=== PATIENT | female | born 1940 | race Caucasian/White ===

== ENCOUNTER 2020-01-15 15:28 | Inpatient (IN) ==
--- NOTE | 2020-01-15 15:50 | Emergency Department Note ---
Impression & Plan Pulmonary emboli, Fracture, radius, head ED Provider Note NAME: TIANNA DO AGE: 79 SEX: F : 1940 ARRIVES VIA: Walk-In INFORMANT: Patient ED PROVIDER(S): Kole Chavez DO CHIEF COMPLAINT: Fall HPI: Patient is a 79-year-old female who presents the ER for a fall down 4 steps yesterday. She notes she was talking and not paying attention when she fell. She denies losing consciousness. She had no symptoms prior to the fall. Since then she has been having right rib pain. Patient is also complaining of mild knee pain on the right with walking. She also has the majority of her pain in her left elbow tracking down to her left wrist. Pain is worse with movement. She been taking Tylenol no significant improvement. Pain is a 9 out of 10. No other exacerbating or remitting factors. She did not hit her head. No loss consciousness. No blood thinners. No neck pain. ROS: See above HPI for pertinent positives & negatives. A total of 10 systems reviewed and were otherwise negative. PAST MEDICAL HISTORY:See Below PAST SURGICAL HISTORY:See Below FAMILY HISTORY:See Below SOCIAL HISTORY:See Below HOME MEDICATIONS:See Below ALLERGIES:See Below VITALS:See Below PHYSICAL EXAMINATION: GENERAL: alert, well appearing, well nourished, no distress, non-toxic HEAD: normal cephalic, small contusion above right eyebrow EYE EXAM: normal conjunctiva, PERRL and EOM's grossly intact OROPHARYNX: no exudate, no erythema, lips, buccal mucosa, and tongue normal and mucous membranes are moist NECK: supple, no nuchal rigidity, no adenopathy, non-tender CHEST: stable to compression anteriorly and posteriorly with tenderness under the right breast. LUNGS: clear to auscultation. Normal chest wall mechanics HEART: no murmurs, S1 normal and S2 normal ABDOMEN: abdomen soft, non-tender, normo-active bowel sounds, no masses, no rebound or guarding. PELVIS: stable to compression anteriorly and posteriorly BACK: Back is symmetrical on inspection and there is no deformity, no midline tenderness, no CVA tenderness. UPPER EXTREMITIES: Skin is intact. No tenderness throughout left humerus tracking down through and until the elbow. She has tenderness on palpation of left elbow and over the radial head. This tracks through to the wrist. DPs 2 out of 4. Skin is intact. Gross sensations intact. Flexion-extension at the elbow home with supination and pronation and flexion extension of the wrist is intact. LOWER EXTREMITIES: Small abrasion to right knee. Full active and passive range of motion without tenderness to palpation right and left hip knees ankles. NEURO EXAM: Normal sensorium, cranial nerves II-XII grossly intact, normal speech, no gross weakness of arms, no gross weakness of legs. GCS: 15. MEDICAL DECISION MAKING: Patient is a 79-year-old female who presents the ER following a mechanical fall yesterday. She is having rib pain, arm pain and knee pain. She also has a contusion to her right forehead. IV was established blood work was obtained. Labs show no significant leukocytosis or anemia. INR was unremarkable. BMP along with LFTs bilirubin and troponin was negative. X-rays of the knee wrist forearm and elbow show left radial head fracture. Patient was placed in a sugar tong. CT of the chest showed bilateral PEs. Patient was fairly hypertensive but she was having fair amount of pain and initially did not want pain medications. She was eventually given morphine and agreeable. Pressures came down into the 180s. She was started on heparin bolus and heparin drip secondary to the PEs after discussion. She denies any previous brain bleeds, coughing up blood, vomiting blood, urinating blood, dark tarry stools or bright red blood per rectum. Patient was updated and discussed with hospitalist for admission. Triage Nursing notes reviewed. Prior medical records reviewed Vital Signs: reviewed and remarkable for HTN Differential diagnosis: Differential diagnoses include major intracranial, cervical, spinal, thoracic, a bdominal, pelvic and neurologic injury. Fracture, contusion, sprain, strain, laceration, abrasions included as well. ER treatment provided: See below Diagnostics interpreted by me: ECG: none Cardiac Monitoring: An order was placed for continuous cardiac monitoring. The monitor shows a rate of 68 with sinus rhythm. Laboratory studies: As stated above and show below. Imaging studies: CT of the chest shows bilateral PEs. X-rays were otherwise unremarkable with exception of a radial head fracture. Consultation(s): Discussed with the hospitalist for admission. ED COURSE: Procedures: none Critical Care: I have personally spent 35 minutes of critical care time in the direct management of this patient. This includes bedside care, interpretation of diagnostic studies, and testing, discussion with consultants, patient, and family members, and other required patient management activities. This 35 minutes is in excess of all separately billable procedures. Past Med/Surg History Medical History (Updated 01/15/20 @ 21:25 by Kole Chavez DO) Hyperlipidemia Hypertension Sleep apnea Social History Preferred Language: Citizen Of [place] Feels Safe at Home: Yes Smoking Status: Never smoker Allergies Allergies Allergy/AdvReac Type Severity Reaction Status Date / Time simvastatin [From Zocor] AdvReac Muscle Pain Verified 01/15/20 17:03 Home Meds Home Medications Medication Instructions Recorded Confirmed acetaminophen [Tylenol Extra 500 mg PO Q6H PRN 01/15/20 01/15/20 Strength] atorvastatin 40 mg PO DAILY 01/15/20 01/15/20 cholecalciferol (vitamin D3) 25 mcg PO DAILY 01/15/20 01/15/20 [Vitamin D3] hydrochlorothiazide 25 mg PO DAILY 01/15/20 01/15/20 levothyroxine 75 mcg PO DAILY 01/15/20 01/15/20 omega-3 fatty acids-fish oil [Fish 1 cap PO DAILY 01/15/20 01/15/20 Oil] potassium chloride 20 meq PO BID 01/15/20 01/15/20 Results & Data (ED) Vital Signs Vital Signs - 24 hr 01/15/20 15:32 01/15/20 16:35 01/15/20 16:40 Temperature 36.7 C Temperature Source Oral Pulse Rate 70 52 L 50 L Pulse Rate [Finger] Pulse Rate from SpO2 Sensor 57 L 46 L Pulse Rhythm Regular Pulse Strength Normal Respiratory Rate 20 18 21 Respiratory Depth Normal Blood Pressure 166/97 H Blood Pressure [Right Arm] Blood Pressure Mean 120 Blood Pressure Mean [Right Arm] Blood Pressure Position Sitting Pulse Oximetry 94 95 95 Oxygen Delivery Method Room Air Room Air Room Air Sepsis Recent Fever Within 48 Hours No Sepsis New/Unexplained Change in Mental Status No Sepsis Action Taken by Nursing No Action Required 01/15/20 16:41 01/15/20 16:50 01/15/20 17:00 Temperature Temperature Source Pulse Rate 45 L 62 65 Pulse Rate [Finger] Pulse Rate from SpO2 Sensor 56 L 63 65 Pulse Rhythm Pulse Strength Respiratory Rate 19 16 18 Respiratory Depth Blood Pressure 176/90 H Blood Pressure [Right Arm] Blood Pressure Mean 113 Blood Pressure Mean [Right Arm] Blood Pressure Position Pulse Oximetry 95 98 99 Oxygen Delivery Method Room Air Room Air Room Air Sepsis Recent Fever Within 48 Hours Sepsis New/Unexplained Change in Mental Status Sepsis Action Taken by Nursing 01/15/20 17:01 01/15/20 17:10 01/15/20 17:20 Temperature Temperature Source Pulse Rate 64 49 L 48 L Pulse Rate [Finger] Pulse Rate from SpO2 Sensor 64 50 L 48 L Pulse Rhythm Pulse Strength Respiratory Rate 17 20 14 Respiratory Depth Blood Pressure 198/78 H Blood Pressure [Right Arm] Blood Pressure Mean 108 Blood Pressure Mean [Right Arm] Blood Pressure Position Pulse Oximetry 97 99 100 Oxygen Delivery Method Room Air Room Air Room Air Sepsis Recent Fever Within 48 Hours Sepsis New/Unexplained Change in Mental Status Sepsis Action Taken by Nursing 01/15/20 17:30 01/15/20 17:40 01/15/20 18:03 Temperature Temperature Source Pulse Rate 46 L 67 72 Pulse Rate [Finger] Pulse Rate from SpO2 Sensor 50 L 62 72 Pulse Rhythm Pulse Strength Respiratory Rate 18 21 21 Respiratory Depth Blood Pressure 187/107 H Blood Pressure [Right Arm] Blood Pressure Mean 125 Blood Pressure Mean [Right Arm] Blood Pressure Position Pulse Oximetry 93 99 94 Oxygen Delivery Method Room Air Room Air Room Air Sepsis Recent Fever Within 48 Hours Sepsis New/Unexplained Change in Mental Status Sepsis Action Taken by Nursing 01/15/20 18:10 01/15/20 18:20 01/15/20 18:30 Temperature Temperature Source Pulse Rate 69 70 68 Pulse Rate [Finger] Pulse Rate from SpO2 Sensor 69 71 70 Pulse Rhythm Pulse Strength Respiratory Rate 19 17 20 Respiratory Depth Blood Pressure Blood Pressure [Right Arm] Blood Pressure Mean Blood Pressure Mean [Right Arm] Blood Pressure Position Pulse Oximetry 98 99 98 Oxygen Delivery Method Room Air Room Air Room Air Sepsis Recent Fever Within 48 Hours Sepsis New/Unexplained Change in Mental Status Sepsis Action Taken by Nursing 01/15/20 18:31 01/15/20 18:40 01/15/20 18:45 Temperature Temperature Source Pulse Rate 53 L 55 L Pulse Rate [Finger] 70 Pulse Rate from SpO2 Sensor 53 L 51 L Pulse Rhythm Pulse Strength Respiratory Rate 17 15 17 Respiratory Depth Blood Pressure Blood Pressure [Right Arm] 226/104 H Blood Pressure Mean 203 Blood Pressure Mean [Right Arm] 144 Blood Pressure Position Pulse Oximetry 97 98 97 Oxygen Delivery Method Room Air Room Air Room Air Sepsis Recent Fever Within 48 Hours Sepsis New/Unexplained Change in Mental Status Sepsis Action Taken by Nursing 01/15/20 18:47 01/15/20 18:48 01/15/20 19:01 Temperature Temperature Source Pulse Rate 80 74 71 Pulse Rate [Finger] Pulse Rate from SpO2 Sensor 72 76 69 Pulse Rhythm Pulse Strength Respiratory Rate 17 18 17 Respiratory Depth Blood Pressure 243/103 H 226/104 H 231/106 H Blood Pressure [Right Arm] Blood Pressure Mean 120 120 120 Blood Pressure Mean [Right Arm] Blood Pressure Position Pulse Oximetry 98 99 99 Oxygen Delivery Method Room Air Room Air Sepsis Recent Fever Within 48 Hours Sepsis New/Unexplained Change in Mental Status Sepsis Action Taken by Nursing 01/15/20 19:28 01/15/20 19:30 01/15/20 19:31 Temperature Temperature Source Pulse Rate 69 65 57 L Pulse Rate [Finger] Pulse Rate from SpO2 Sensor 69 65 62 Pulse Rhythm Pulse Strength Respiratory Rate 20 18 14 Respiratory Depth Blood Pressure 186/81 H 179/80 H Blood Pressure [Right Arm] Blood Pressure Mean 103 129 Blood Pressure Mean [Right Arm] Blood Pressure Position Pulse Oximetry 97 97 97 Oxygen Delivery Method Room Air Room Air Sepsis Recent Fever Within 48 Hours Sepsis New/Unexplained Change in Mental Status Sepsis Action Taken by Nursing 01/15/20 20:00 01/15/20 20:31 Temperature Temperature Source Pulse Rate 70 70 Pulse Rate [Finger] Pulse Rate from SpO2 Sensor 66 71 Pulse Rhythm Pulse Strength Respiratory Rate 23 19 Respiratory Depth Blood Pressure 164/72 H 152/74 H Blood Pressure [Right Arm] Blood Pressure Mean 86 82 Blood Pressure Mean [Right Arm] Blood Pressure Position Pulse Oximetry 97 98 Oxygen Delivery Method Room Air Room Air Sepsis Recent Fever Within 48 Hours Sepsis New/Unexplained Change in Mental Status Sepsis Action Taken by Nursing Laboratory Data Result diagrams: 01/15/20 16:33 01/15/20 16:33 Lab Results 01/15/20 01/15/20 01/15/20 Range/Units 16:33 16:33 16:33 WBC 10.89 H (4.8-10.8) K/uL RBC 4.33 (4.2-5.4) M/uL Hgb 13.8 (12.0-16.0) g/dL Hct 40.3 (37-47) % MCV 93.1 (80-100) fL MCH 31.9 (25-34) pg MCHC 34.2 (32-36) g/dL RDW Std Deviation 48.6 H (36.4-46.3) fL RDW Coeff of Anyi 14.2 (11.5-14.5) % Plt Count 216 (130-400) K/uL MPV 11.0 H (7.4-10.4) fL Immature Gran % (Auto) 0.2 % Neut % (Auto) 62.0 % Lymph % (Auto) 22.0 % [place] % (Auto) 10.3 % Eos % (Auto) 5.1 % Baso % (Auto) 0.4 % Immature Gran # (Auto) 0.02 (0.00-0.02) K/uL Neut # (Auto) 6.76 H (1.4-6.5) K/uL Lymph # (Auto) 2.40 (1.2-3.4) K/uL [place] # (Auto) 1.12 H (0.11-0.59) K/uL Eos # (Auto) 0.55 H (0-0.5) K/uL Baso # (Auto) 0.04 (0-0.2) K/uL PT 11.0 (9.0-12.0) Seconds INR 1.0 (0.9-1.1) APTT (21.0-31.0) Seconds PTT Ratio Sodium 136 (136-145) mmol/L Potassium 3.5 (3.5-5.1) mmol/L Chloride 103 (98-107) mmol/L Carbon Dioxide 27 (21-32) mmol/L Anion Gap 7.0 (3-11) BUN 24 H (7-18) mg/dl Creatinine 1.14 (0.6-1.2) mg/dl Est Cr Clr Drug Dosing 44.2 ml/min Est GFR ( Amer) 53.3 Est GFR (Non-Af Amer) 46.0 BUN/Creatinine Ratio 21.2 H (10-20) Glucose 93 (70-99) mg/dl Calcium 9.0 (8.5-10.1) mg/dl Total Bilirubin 1.0 (0.2-1) mg/dl Direct Bilirubin (0-0.2) mg/dl AST 28 (15-37) U/L ALT 45 (12-78) U/L Alkaline Phosphatase 77 (45-117) U/L Troponin I < 0.015 (0-0.045) ng/ml Total Protein 7.6 (6.4-8.2) gm/dl Albumin 3.7 (3.4-5.0) gm/dl Globulin 3.9 (2.5-4.0) gm/dl Albumin/Globulin Ratio 0.9 (0.9-2) 01/15/20 01/15/20 Range/Units 19:18 19:32 WBC (4.8-10.8) K/uL RBC (4.2-5.4) M/uL Hgb (12.0-16.0) g/dL Hct (37-47) % MCV (80-100) fL MCH (25-34) pg MCHC (32-36) g/dL RDW Std Deviation (36.4-46.3) fL RDW Coeff of Anyi (11.5-14.5) % Plt Count (130-400) K/uL MPV (7.4-10.4) fL Immature Gran % (Auto) % Neut % (Auto) % Lymph % (Auto) % [place] % (Auto) % Eos % (Auto) % Baso % (Auto) % Immature Gran # (Auto) (0.00-0.02) K/uL Neut # (Auto) (1.4-6.5) K/uL Lymph # (Auto) (1.2-3.4) K/uL [place] # (Auto) (0.11-0.59) K/uL Eos # (Auto) (0-0.5) K/uL Baso # (Auto) (0-0.2) K/uL PT 11.0 (9.0-12.0) Seconds INR 1.0 (0.9-1.1) APTT 23.0 (21.0-31.0) Seconds PTT Ratio 0.8 Sodium (136-145) mmol/L Potassium (3.5-5.1) mmol/L Chloride (98-107) mmol/L Carbon Dioxide (21-32) mmol/L Anion Gap (3-11) BUN (7-18) mg/dl Creatinine (0.6-1.2) mg/dl Est Cr Clr Drug Dosing ml/min Est GFR ( Amer) Est GFR (Non-Af Amer) BUN/Creatinine Ratio (10-20) Glucose (70-99) mg/dl Calcium (8.5-10.1) mg/dl Total Bilirubin 1.0 (0.2-1) mg/dl Direct Bilirubin 0.2 (0-0.2) mg/dl AST 25 (15-37) U/L ALT 42 (12-78) U/L Alkaline Phosphatase 77 (45-117) U/L Troponin I < 0.015 (0-0.045) ng/ml Total Protein 7.2 (6.4-8.2) gm/dl Albumin 3.6 (3.4-5.0) gm/dl Globulin (2.5-4.0) gm/dl Albumin/Globulin Ratio (0.9-2) Administered Medications Heparin Sodium/Dextrose (Heparin Sodium/Dextrose) 25,000 units in 500 mls @ 0.02 mls/hr IV .Q24H JAILYN; Protocol Stop: 02/14/20 18:44 Last Titration: 01/15/20 20:44 Dose: 800 units/hr, 16 mls/hr Documented by: [id number] Cosigned by: [id number] Titration: 01/15/20 19:54 Dose: 0 units/hr, 0 mls/hr Documented by: [id number] Cosigned by: [id number] Admin: 01/15/20 19:24 Dose: 800 units/hr, 16 mls/hr Documented by: [id number] Cosigned by: [id number] Ioversol (Optiray 320 100ml) 92 ml IV ONCE PRN PRN Reason: Interaction Checking Stop: 01/19/20 17:53 Last Admin: 01/15/20 17:54 Dose: 92 ml Documented by: [id number] Discontinued Medications Amlodipine Besylate (Norvasc) 5 mg PO NOW ONE Stop: 01/15/20 19:36 Last Admin: 01/15/20 20:44 Dose: Not Given Documented by: [id number] Heparin Sodium (Porcine) (Heparin Iv Bolus) Confirm Administered Dose 10,000 units .ROUTE .STK-MED ONE Stop: 01/15/20 19:07 Last Admin: 01/15/20 19:23 Dose: 4,000 units Documented by: [id number] Cosigned by: [id number] Heparin Sodium/Dextrose () 1 ea IV NOW STA; Protocol Stop: 01/15/20 18:46 Last Admin: 01/15/20 19:28 Dose: Not Given Documented by: [id number] Hydralazine HCl (Hydralazine Hcl) 5 mg IV NOW ONE Stop: 01/15/20 19:26 Last Admin: 01/15/20 20:07 Dose: Not Given Documented by: [id number] Hydralazine HCl (Hydralazine Hcl) Confirm Administered Dose 20 mg .ROUTE .STK- MED ONE Stop: 01/15/20 19:52 Last Increment: 01/15/20 19:54 Dose: 5 mg Documented by: [id number] Morphine Sulfate (Morphine Sulfate) 4 mg IV NOW STA Stop: 01/15/20 18:51 Last Admin: 01/15/20 19:09 Dose: 4 mg Documented by: [id number] Discharge Plan Visit Data *Final* Discharge Date/Time: 01/15/20 21:04 Chief Complaint: Fall Stated Complaint: fall, right rib pain, bilater knee pain ED Provider: Kole Chavez Discharge Problem: Pulmonary emboli, Fracture, radius, head Patient Disposition: Admitted As Inpatient Discharge Instructions Interventions: ED Discharge Assessment Last Done: 01/15/20 21:04 Discharge Problem: Pulmonary emboli Qualifiers: Pulmonary embolism type: unspecified Chronicity: acute Acute cor pulmonale presence: unspecified Qualified Code(s): I26.99 - Other pulmonary embolism without acute cor pulmonale Fracture, radius, head Qualifiers: Encounter type: initial encounter Fracture type: closed Fracture alignment: nondisplaced Laterality: left Qualified Code(s): S52.125A - Nondisplaced fracture of head of left radius, initial encounter for closed fracture
--- NOTE | 2020-01-15 16:36 | XRay Report ---
RIGHT KNEE 3 VIEWS CLINICAL HISTORY: Fall with right knee injury. FINDINGS: AP, crosstable lateral, and sunrise views of the right knee are obtained. No prior studies are available for comparison at the time of dictation. The Skeletal structures are osteopenic. No fra cture is seen. There is mild tricompartmental degenerative joint space narrowing. There are small lat eral marginal osteophytes, patellar enthesophytes, and degenerative beaking of the tibial spine. Ther e is faint chondrocalcinosis in the medial and lateral compartments. A calcified fabella is incidenta lly noted. There is a small joint effusion. Mild prepatellar soft tissue swelling is noted. IMPRESSION: 1. Mild soft tissue swelling and joint effusion with no acute bony abnormality identified. 2. Mild degenerative change and chondrocalcinosis as above. Electronically signed by: Miguel Story M.D. 01/15/2020 4:35 PM
--- NOTE | 2020-01-15 16:37 | XRay Report ---
LEFT ELBOW 3 VIEWS CLINICAL HISTORY: Fall with left elbow injury. FINDINGS: 3 views of the left elbow are obtained. No prior studies are available for comparison at th e time of dictation. The skeletal structures are osteopenic. There is a nondisplaced radial head frac ture which extends to the articular surface. There is associated joint effusion. No additional fractu re is identified. Mild overlying soft tissue edema is noted. IMPRESSION: Nondisplaced radial head fracture as above with associated joint effusion. Electronically signed by: Miguel Story M.D. 01/15/2020 4:36 PM
--- NOTE | 2020-01-15 16:39 | XRay Report ---
LEFT FOREARM 2 VIEWS CLINICAL HISTORY: Fall with left arm injury. FINDINGS: AP and lateral views of the left forearm are obtained. No prior studies are available for c omparison at the time of dictation. The skeletal structures are osteopenic. There is a radial head fr acture. Question a small displaced fragment within the joint space. No additional fracture is identif ied. The distal radius and the ulna are intact. There is an associated elbow joint effusion. Soft tis nora edema is present around the elbow. IMPRESSION: 1. Radial head fracture as above. 2. Question a small displaced fragment within the joint space. Electronically signed by: Miguel Story M.D. 01/15/2020 4:38 PM
[2020-01-15 16:41] LABS: Basophils # (auto) 0.04 K/uL (0-0.2); Basophils % (auto) 0.4 %; Eosinophils # (auto) 0.55 K/uL (0-0.5); Eosinophils % (auto) 5.1 %; Hematocrit (blood only) 40.3 % (37-47); Hemoglobin 13.8 g/dL (12.0-16.0); Immature Granulocytes # (auto) 0.02 K/uL (0.00-0.02); Immature Granulocytes % (auto) 0.2 %; Mean Corpuscular Hemoglobin 31.9 pg (25-34); Mean Corpuscular Hgb Conc 34.2 g/dL (32-36); Mean Corpuscular Volume 93.1 fL (80-100); Monocytes # (auto) 1.12 K/uL (0.11-0.59); Monocytes % (auto) 10.3 %; Neutrophils # (auto) 6.76 K/uL (1.4-6.5); Platelet Count 216 K/uL (130-400); RDW Coefficient of Variation 14.2 % (11.5-14.5); RDW Standard Deviation 48.6 fL (36.4-46.3); Red Blood Count 4.33 M/uL (4.2-5.4); White Blood Count 10.89 K/uL (4.8-10.8)
--- NOTE | 2020-01-15 16:45 | XRay Report ---
LEFT WRIST 4 VIEWS CLINICAL HISTORY: Left wrist injury. Fall. FINDINGS: 4 views of the left wrist are obtained. No prior studies are available for comparison at th e time of dictation. The skeletal structures are osteopenic. There is no radiographic evidence of lef t wrist fracture. Mild degenerative narrowing is seen at the radiocarpal articulation. Mild to modera te osteoarthritic change is noted at the first carpometacarpal joint. The overlying soft tissues are normal as imaged. IMPRESSION: No fracture is identified. Electronically signed by: Miguel Story M.D. 01/15/2020 4:43 PM
[2020-01-15 16:57] LABS: Alanine Aminotransferase 45 U/L (12-78); Albumin Level 3.7 gm/dl (3.4-5.0); Aspartate Aminotransferase 28 U/L (15-37); BUN Creatinine Ratio 21.2 (10-20); Blood Urea Nitrogen 24 mg/dl (7-18); Carbon Dioxide 27 mmol/L (21-32); Chloride 103 mmol/L (98-107); Creatinine Clr Calc Pharmacy 44.2 ml/min; Est GFR (African American) 53.3; Glucose 93 mg/dl (70-99); Potassium 3.5 mmol/L (3.5-5.1); Sodium 136 mmol/L (136-145)
[2020-01-15 17:02] LABS: Albumin Globulin Ratio 0.9 (0.9-2); Alkaline Phosphatase 77 U/L (45-117); Globulin 3.9 gm/dl (2.5-4.0); Total Protein 7.6 gm/dl (6.4-8.2); Troponin I < 0.015 ng/ml (0-0.045)
[2020-01-15] MEDS ORDERED: IOVERSOL 100ml IV PRN (17:54)
--- NOTE | 2020-01-15 18:31 | CT Scan Report ---
CT SCAN OF THE BRAIN WITHOUT IV CONTRAST CLINICAL HISTORY: Fall. Head injury. COMPARISON STUDY: CT of the brain dated 06/30/2019. TECHNIQUE: Unenhanced axial CT scan of the brain is performed from the vertex to the skull base. A do se lowering technique was utilized adhering to the principles of ALARA. FINDINGS: Brain parenchyma: There are age-related involutional changes noting moderate confluent subcortical a nd periventricular microangiopathic change. There is no hemorrhage, mass effect, or evidence of acute territorial ischemia by CT criteria. Mccoy-white matter differentiation is preserved. No extra-axial fluid collection is seen. Ventricles, sulci, cisterns: Prominent secondary to involutional change. Intracranial vasculature: There is atherosclerotic calcification of the cavernous carotid and vertebr al arteries. Calvarium: The skeletal structures are osteopenic. There is no depressed calvarial fracture. Sinuses and mastoids: Trace mucosal thickening is seen in the left frontal sinus. The remaining visua lized paranasal sinuses are clear. The mastoid air cells are well pneumatized. Orbits: The bony orbits are grossly intact. There are bilateral ocular lens implants. IMPRESSION: There is no hemorrhage, mass effect, or evidence of acute territorial ischemia by CT dax hamilton. ACT 112: Negative or not required by law. Electronically signed by: Miguel Story M.D. 01/15/2020 6:30 PM
--- NOTE | 2020-01-15 18:41 | CT Scan Report ---
CT SCAN OF THE CHEST WITH IV CONTRAST CLINICAL HISTORY: Trauma. Fall. COMPARISON STUDY: Chest CT dated 07/02/2019. TECHNIQUE: Following the IV administration of 92 cc of Optiray 320, CT scan of the thorax was perform ed from the thoracic inlet to the upper abdomen. Images are reviewed in the axial, sagittal, and jay nal planes. IV contrast was administered without complication. A dose lowering technique was utilize d adhering to the principles of ALARA. The examination is degraded by streak artifact from the left a rm which could not be elevated above the chest. CT DOSE: 1873.85 mGy.cm FINDINGS: Thyroid: Imaged portions of the thyroid gland are normal in size and attenuation. Thoracic aorta: There is atherosclerotic calcification of the thoracic aorta, which is normal in javier nia and demonstrates bovine variant arch anatomy. No dissection is seen. Pulmonary vasculature: The pulmonary trunk is normal in caliber. There are pulmonary emboli within se gmental branches of the right upper there are segmental and subsegmental pulmonary emboli within bran ches of the right middle, right lower, and lingular pulmonary arteries. Heart: The heart is mildly enlarged and without pericardial effusion. There is calcification of the c oronary arteries and aortic valve leaflets. Lungs and pleural spaces: There is no lobar consolidation, pleural effusion, or pneumothorax. Scarrin g/atelectasis is noted at the lung bases. There are scattered calcified granulomas. The trachea and c entral airways are clear. Numerous tiny groundglass nodules are again seen scattered throughout both lungs. Mediastinum: There is no mediastinal hematoma or lymphadenopathy. Shwetha: Clear. Axillae: There is no axillary lymphadenopathy. Upper abdomen: There is a moderate hiatal hernia. A 1.6 cm cyst is again noted in the left lobe of th e liver. Skeletal structures: The skeletal structures are osteopenic. The bony thorax appears intact. Mild deg enerative changes noted in the shoulders and thoracic spine. No lytic or blastic bony lesions are see n. IMPRESSION: 1. Segmental and subsegmental pulmonary emboli are present bilaterally as detailed above. 2. There is no acute posttraumatic intrathoracic abnormality. 3. There is no lobar consolidation, pleural effusion, or pneumothorax. 4. Moderate hiatal hernia. 5. Numerous tiny groundglass nodules are again seen scattered throughout both lungs. This has not sig nificantly changed from 07/02/2019. Consider nonemergent pulmonology follow-up. 6. Cardiomegaly. 7. Additional findings as above. Electronically signed by: Miguel Story M.D. 01/15/2020 6:40 PM
[2020-01-15] MEDS ORDERED: Heparin IV Low Dose WITH Bolus IV STA (18:45)
[2020-01-15] MEDS ORDERED: HEPARIN SODIUM/DEXTROSE 25,000 UNITS/500 ML BAG IV SCH (18:45)
[2020-01-15] MEDS ORDERED: MoRPHine SULFATE 4 MG/ML 1 ML CARP\\VIAL IV STA (18:50)
[2020-01-15] MEDS ORDERED: HEPARIN SOD (PORCINE) 1000 UNIT/ML 10 ML VIAL ONE (19:06)
[2020-01-15] MEDS ORDERED: HydrALAZINE HCL 20 MG/ML VIAL IV ONE (19:25)
[2020-01-15] MEDS ORDERED: AMLODIPINE BESYLATE 5 MG TAB PO ONE (19:35)
[2020-01-15 19:38] LABS: Partial Thromboplastin Ratio 0.8
[2020-01-15] MEDS ORDERED: HydrALAZINE HCL 20 MG/ML VIAL ONE (19:51)
[2020-01-15 20:03] LABS: Alanine Aminotransferase 42 U/L (12-78); Albumin Level 3.6 gm/dl (3.4-5.0); Alkaline Phosphatase 77 U/L (45-117); Aspartate Aminotransferase 25 U/L (15-37); Bilirubin Direct 0.2 mg/dl (0-0.2); Total Protein 7.2 gm/dl (6.4-8.2); Troponin I < 0.015 ng/ml (0-0.045)
--- NOTE | 2020-01-15 20:25 | History & Physical Report ---
Date of Service January 15, 2020 Assessment & Plan (1) Pulmonary embolism, bilateral: 71-year-old female with history of hypertension, CKD stage III, solid sleep apnea on CPAP, presenting with progressive right rib pain and left elbow pain after a fall yesterday. Acute bilateral pulmonary embolism Risk factors: Poor mobility secondary to generalized fatigue for the past few weeks, reports that her aunt and her son has history of blood clots CT angiogram of the chest: 1. Segmental and subsegmental pulmonary emboli are present bilaterally as detailed above. 2. There is no acute posttraumatic intrathoracic abnormality. 3. There is no lobar consolidation, pleural effusion, or pneumothorax. 4. Moderate hiatal hernia. 5. Numerous tiny groundglass nodules are again seen scattered throughout both lungs. This has not significantly changed from 07/02/2019. Consider nonemergent pulmonology follow-up. 6. Cardiomegaly. 7. Additional findings as above. Saturating well on room air, blood pressure elevated Check echocardiogram Heparin standard dose with bolus ordered, continued after patient's blood pressure improved In light of elevated BMI, may not be a good candidate for the novel anticoagulants, discussed with pharmacist or proposal development manager Will need hematology referral as an outpatient and hypercoagulable work-up Left radial head nondisplaced fracture, status post fall Appears to be mechanical fall, no prodrome Left Elbow Xray: IMPRESSION: Nondisplaced radial head fracture as above with associated joint effusion. Arm sling ordered, scheduled Tylenol, PRN morphine, tramadol orthopedic service consulted May need court recording monitor placement as outpatient Hypertension Mildly elevated while at the emergency room likely secondary to severe pain Approach with morphine, PRN hydralazine Hold usual HCTZ as patient received IV contrast today Monitor, may need amlodipine tomorrow Right knee pain X-ray: 1. Mild soft tissue swelling and joint effusion with no acute bony abnormality identified. 2. Mild degenerative change and chondrocalcinosis as above. --Ice packs ordered CKD stage III Stable Hypothyroidism Continue usual levothyroxine Obstructive sleep apnea CPAP ordered Activity Bedrest for tonight Advance accordingly DVT prophylaxis Already on heparin drip Disposition PT and OT evaluation Usually lives at home with family Plan of care discussed with patient in detail and at length All questions were answered Patient understanding, agreeable, comfortable plan of care History of Present Illness 79-year-old female with history of hypertension, CKD stage 3, and other problems noted below presenting with Right-sided rib pain and left elbow pain after a fall yesterday. Patient states that for the past few weeks she has been feeling fatigued and was mostly in her recliner throughout the day. Yesterday while walking down the steps, descending from her porch, the patient felt weak on her lower legs and subsequently fell landing on her chest, on brick ground. She did not have any dizziness, lightheadedness, palpitations prior to the fall. Also did not lose consciousness. She managed to get up but subsequently developed progressive left elbow pain and right rib pain. Progression of left elbow pain because of to the ER. At the ER, the patient was receiving high blood pressure up to systolic 200s, but was saturating well on room air. CT angiogram of the chest confirmed acute bilateral pulmonary emboli. Left elbow x-ray also showed nondisplaced radial head fracture, with joint effusion. She was started with a heparin drip with bolus, and given morphine ER. She was also given additional hydralazine, which improved her blood pressure to the systolic 150s. On exam, the patient was seen in her room at the PCU. She was sitting up, oriented x3, alert, awake, answers all questions appropriately, in good spirits. She states that her pain is much better, now 5 out of 10. Has some minimal right rib pain, but denies having any shortness of breath, cough, sputum production, fevers or chills. No leg pain, does report minimal discomfort on her right knee. She reports no problems with ambulation. Primary Care Provider: Мария Littlejohn, Allergies Allergy/AdvReac Type Severity Reaction Status Date / Time simvastatin [From Zocor] AdvReac Muscle Pain Verified 01/15/20 17:03 Home Medications Home Medications Medication Instructions Recorded Confirmed Type acetaminophen [Tylenol Extra 500 mg PO Q6H PRN 01/15/20 01/15/20 History Strength] atorvastatin 40 mg PO DAILY 01/15/20 01/15/20 History cholecalciferol (vitamin D3) 25 mcg PO DAILY 01/15/20 01/15/20 History [Vitamin D3] hydrochlorothiazide 25 mg PO DAILY 01/15/20 01/15/20 History levothyroxine 75 mcg PO DAILY 01/15/20 01/15/20 History omega-3 fatty acids-fish oil [Fish 1 cap PO DAILY 01/15/20 01/15/20 History Oil] potassium chloride 20 meq PO BID 01/15/20 01/15/20 History Past Med/Surg History Medical History (Updated 01/15/20 @ 21:25 by Kole Chavez, DO) Hyperlipidemia Hypertension Sleep apnea Social History Preferred Language: Bulgarian Communication Ability: Effective Senior Licensing Manager Required: No Beliefs That Will Affect Care: None Current Living Situation: Spouse Other Information That Helps Us Care for You: No Feels Safe at Home: Yes Safety Concerns: Feels Safe At This Time Smoking Status: Never smoker Do You Dip or Chew Tobacco: No ; Second Hand Exposure: No ; Hx Alcohol Use: No Hx Substance Use: No Review of Systems Review of Systems: All systems reviewed & are unremarkable except as noted in HPI & below Physical Exam Physical Exam: General- oriented x 3, not in distress, speaks in sentences with no effort or accessory muscle use Head- atraumatic Eyes- PERRL, EOMI, anicteric ENT- oropharynx clear Neck- supple, no JVD, no adenopathy, no thyromegaly; carotids +2/2, no bruits appreciated Lungs- clear to auscultation bilaterally, no rales/wheezes Heart- normal rate, regular rhythm; no murmur, no gallop, no rub appreciated No hematoma, erythema on the right chest wall, positive mild tenderness on deep palpation of the region under the right breast Abdomen- normal bowel sounds, nondistended, soft, nontender, no masses or hepatosplenomegaly Extremities-left arm in a sling, able to move fingers fully, splint also in place Right knee: Positive small area of abrasion, no erythema/warmth/tenderness no pretibial edema, no calf tenderness; peripheral pulses intact Neuro- alert, oriented x 3; CN 2-12 grossly intact; motor 5/5 bilaterally;sensation 100% on all extremities; no other gross focal neurologic deficits Skin- warm & dry Results & Data Results & Data ([facility]) Vital Signs (Past 12 Hours) Vital Signs Temp Pulse Pulse Resp BP BP Pulse Ox 01/15/20 20:00 70 23 164/72 H 97 01/15/20 19:31 57 L 14 97 06/06/20 19:30 65 18 179/80 H 97 01/15/20 19:28 69 20 186/81 H 97 01/15/20 19:01 71 17 231/106 H 99 01/15/20 18:48 74 18 226/104 H 99 01/15/20 18:47 80 17 243/103 H 98 01/15/20 18:45 70 17 226/104 H 97 01/15/20 18:40 55 L 15 98 01/15/20 18:31 53 L 17 97 01/15/20 18:30 68 20 98 01/15/20 18:20 70 17 99 01/15/20 18:10 69 19 98 01/15/20 18:03 72 21 94 01/15/20 17:40 67 21 99 01/15/20 17:30 46 L 18 187/107 H 93 01/15/20 17:20 48 L 14 100 01/15/20 17:10 49 L 20 99 01/15/20 17:01 64 17 198/78 H 97 01/15/20 17:00 65 18 99 01/15/20 16:50 62 16 98 01/15/20 16:41 45 L 19 176/90 H 95 01/15/20 16:40 50 L 21 95 01/15/20 16:35 52 L 18 95 01/15/20 15:32 36.7 C 70 20 166/97 H 94 Laboratory Results Laboratory Results - last 24 hr 01/15/20 01/15/20 01/15/20 16:33 16:33 16:33 WBC 10.89 H RBC 4.33 Hgb 13.8 Hct 40.3 MCV 93.1 MCH 31.9 MCHC 34.2 RDW Std Deviation 48.6 H RDW Coeff of Anyi 14.2 Plt Count 216 MPV 11.0 H Immature Gran % (Auto) 0.2 Neut % (Auto) 62.0 Lymph % (Auto) 22.0 [place] % (Auto) 10.3 Eos % (Auto) 5.1 Baso % (Auto) 0.4 Immature Gran # (Auto) 0.02 Neut # (Auto) 6.76 H Lymph # (Auto) 2.40 [place] # (Auto) 1.12 H Eos # (Auto) 0.55 H Baso # (Auto) 0.04 PT 11.0 INR 1.0 APTT PTT Ratio Sodium 136 Potassium 3.5 Chloride 103 Carbon Dioxide 27 Anion Gap 7.0 BUN 24 H Creatinine 1.14 Est Cr Clr Drug Dosing 44.2 Est GFR ( Amer) 53.3 Est GFR (Non-Af Amer) 46.0 BUN/Creatinine Ratio 21.2 H Glucose 93 Calcium 9.0 Total Bilirubin 1.0 Direct Bilirubin AST 28 ALT 45 Alkaline Phosphatase 77 Troponin I < 0.015 Total Protein 7.6 Albumin 3.7 Globulin 3.9 Albumin/Globulin Ratio 0.9 01/15/20 01/15/20 19:18 19:32 WBC RBC Hgb Hct MCV MCH MCHC RDW Std Deviation RDW Coeff of Anyi Plt Count MPV Immature Gran % (Auto) Neut % (Auto) Lymph % (Auto) [place] % (Auto) Eos % (Auto) Baso % (Auto) Immature Gran # (Auto) Neut # (Auto) Lymph # (Auto) [place] # (Auto) Eos # (Auto) Baso # (Auto) PT 11.0 INR 1.0 APTT 23.0 PTT Ratio 0.8 Sodium Potassium Chloride Carbon Dioxide Anion Gap BUN Creatinine Est Cr Clr Drug Dosing Est GFR ( Amer) Est GFR (Non-Af Amer) BUN/Creatinine Ratio Glucose Calcium Total Bilirubin 1.0 Direct Bilirubin 0.2 AST 25 ALT 42 Alkaline Phosphatase 77 Troponin I < 0.015 Total Protein 7.2 Albumin 3.6 Globulin Albumin/Globulin Ratio Code Status & VTE Plan Code Status Full code
[2020-01-15] MEDS ORDERED: MoRPHine SULFATE 4 MG/ML 1 ML CARP\\VIAL IV PRN (21:39)
[2020-01-15] MEDS ORDERED: Heparin IV Standard *NO* Bolus IV ONE (21:39)
[2020-01-15] MEDS: ACETAMINOPHEN 325 MG TAB PO SCH (23:37)
[2020-01-15] MEDS: POTASSIUM CHLORIDE 20 MEQ TABCR PO SCH (23:37)
[2020-01-15] MEDS: HEPARIN SODIUM/DEXTROSE 25,000 UNITS/500 ML BAG IV SCH (23:39)
[2020-01-16 02:54] LABS: Basophils # (auto) 0.05 K/uL (0-0.2); Basophils % (auto) 0.5 %; Eosinophils # (auto) 0.56 K/uL (0-0.5); Eosinophils % (auto) 5.4 %; Hematocrit (blood only) 38.6 % (37-47); Hemoglobin 12.9 g/dL (12.0-16.0); Immature Granulocytes # (auto) 0.01 K/uL (0.00-0.02); Immature Granulocytes % (auto) 0.1 %; Lymphocytes # (auto) 2.32 K/uL (1.2-3.4); Lymphocytes % (auto) 22.3 %; Mean Corpuscular Hemoglobin 31.2 pg (25-34); Mean Corpuscular Hgb Conc 33.4 g/dL (32-36); Mean Corpuscular Volume 93.2 fL (80-100); Mean Platelet Volume 10.9 fL (7.4-10.4); Monocytes # (auto) 1.17 K/uL (0.11-0.59); Monocytes % (auto) 11.2 %; Neutrophils % (auto) 60.5 %; Platelet Count 198 K/uL (130-400); RDW Coefficient of Variation 14.4 % (11.5-14.5); Red Blood Count 4.14 M/uL (4.2-5.4); White Blood Count 10.41 K/uL (4.8-10.8)
[2020-01-16 03:13] LABS: BUN Creatinine Ratio 26.1 (10-20); Calcium 8.4 mg/dl (8.5-10.1); Creatinine Clr Calc Pharmacy 57.5 ml/min; Est GFR (African American) 68.2; Est GFR (Non-African American) 58.9; Potassium 3.6 mmol/L (3.5-5.1)
[2020-01-16 03:21] LABS: Partial Thromboplastin Ratio 2.6
[2020-01-16 03:23] LABS: Partial Thromboplastin Time 73.9 Seconds (21.0-31.0)
[2020-01-16] MEDS: HEPARIN SODIUM/DEXTROSE 25,000 UNITS/500 ML BAG IV SCH ×2 (03:48→09:00)
[2020-01-16] MEDS: LEVOTHYROXINE SODIUM 75 MCG TABLET PO SCH (05:53)
[2020-01-16] MEDS: ACETAMINOPHEN 325 MG TAB PO SCH ×4 (05:53→21:08)
[2020-01-16 06:23] LABS: Appearance Urine Cloudy (Clear); Bacteria Urine Automated 4+ (Negative); Bilirubin Urine Negative (Negative); Blood Urine Negative (Negative); Color Urine Yellow; Epithelial Cell Urine Auto 20-30 /lpf (0-5); Glucose Urine UA Negative (Negative); Ketones Urine Negative (Negative); Leukocyte Esterase Urine 2+ (Negative); Nitrite Urine Positive (Negative); Protein Urine Negative (Negative); RBC Urine Automated 0-4 /hpf (0-4); Specific Gravity Urine > 1.045 (1.000-1.030); Urobilinogen Urine Negative (Negative); WBC Urine Automated >30 /hpf (0-5); pH Urine 5.5 (4.5-7.5)
[2020-01-16] MEDS ORDERED: POTASSIUM CHLORIDE 20 MEQ TABCR PO STA (07:15)
[2020-01-16] MEDS: POTASSIUM CHLORIDE 20 MEQ TABCR PO SCH ×2 (07:58→21:08)
[2020-01-16] MEDS: cefTRIAXone SODIUM 2,000 MG in DEXTROSE 5% 50 ML IV SCH (07:58)
[2020-01-16] MEDS: ATORVASTATIN 40 MG TAB PO SCH (07:59)
[2020-01-16] MEDS ORDERED: PNEUMOCOCCAL Polysaccharide Vaccine 25mcg/0.5mL vial/Syr IM ONE (08:00)
[2020-01-16 10:06] LABS: Partial Thromboplastin Ratio 2.4
[2020-01-16 10:12] LABS: Partial Thromboplastin Time 67.9 Seconds (21.0-31.0)
--- NOTE | 2020-01-16 10:21 | Consultation Report ---
DATE OF CONSULTATION: 01/16/2020 CHIEF COMPLAINT: Left elbow pain. SUBJECTIVE: The patient is a 79-year-old female, who suffered a fall at home yesterday injuring her left elbow. She denies any other injuries as a result of fall. She was seen at [facility] ED and found to have bilateral pulmonary emboli. She was admitted to the hospital and an Orthopedics consult was asked for her left elbow. PHYSICAL EXAMINATION: Currently, she is resting in bed, alert and oriented, very pleasant elderly lady. Her left upper extremity is in a sugar tong splint and she is in a sling. Her fingers are mobile and neurovascularly intact. She denies any pain about the shoulder. She is left hand dominant. X-RAYS: X-rays of the elbow reviewed. She has a nondisplaced intra-articular radial head fracture. X-rays of the forearm and wrist were also reviewed and showed no acute fracture or abnormality. ASSESSMENT: A 79-year-old female admitted with bilateral pulmonary emboli with nondisplaced left radial head fracture. PLAN: Above discussed with the patient. I told her we can keep the splint in place temporarily for pain control; however, we want to encourage early range of motion to minimize stiffness. I will discuss this with Dr. Rodriguez and will have her follow up with Dr. Rodriguez as an outpatient.
[2020-01-16 17:12] LABS: Partial Thromboplastin Ratio 2.5
[2020-01-16] MEDS ORDERED: HydrALAZINE HCL 20 MG/ML VIAL IV ONE (18:34)
[2020-01-16] MEDS ORDERED: WARFARIN SOD 5 MG TAB PO STA (18:35)
--- NOTE | 2020-01-16 19:22 | Hospitalist Progress Note ---
Date of Service January 16, 2020 Assessment & Plan (1) Pulmonary embolism, bilateral: 71-year-old female with history of hypertension, CKD stage III, solid sleep apnea on CPAP, presenting with progressive right rib pain and left elbow pain after a fall yesterday. Acute bilateral pulmonary embolism Risk factors: Poor mobility secondary to generalized fatigue for the past few weeks, reports that her aunt and her son has history of blood clots CT angiogram of the chest: 1. Segmental and subsegmental pulmonary emboli are present bilaterally as detailed above. 2. There is no acute posttraumatic intrathoracic abnormality. 3. There is no lobar consolidation, pleural effusion, or pneumothorax. 4. Moderate hiatal hernia. 5. Numerous tiny groundglass nodules are again seen scattered throughout both lungs. This has not significantly changed from 07/02/2019. Consider nonemergent pulmonology follow-up. 6. Cardiomegaly. 7. Additional findings as above. Saturating well on room air, blood pressure elevated Echocardiogram ordered - sinus bradycardia during procedure, LV normal size, mild concentric LVH, LV wall motion is normal, EF 65 to 70%, grade 1 diastolic dysfunction. Right ventricle normal in size and function. Doppler findings do not suggest pulmonary hypertension. Heparin standard dose with bolus ordered, continued after patient's blood pressure improved In light of elevated BMI, may not be a good candidate for the novel ant icoagulants, discussed with pharmacist or hand finisher -Discussed warfarin with patient, she is familiar with the medication, as her son was also taking it in the past. -We will start warfarin tonight -Monitor INR Will need hematology referral as an outpatient and hypercoagulable work-up Telemetry reviewed, patient has episodes of sinus bradycardia, and sinus arrhythmia May need quality assurance monitor chassis placement as outpatient Left radial head nondisplaced fracture, status post fall Appears to be mechanical fall, no prodrome Left Elbow Xray: IMPRESSION: Nondisplaced radial head fracture as above with associated joint effusion. Arm sling ordered, scheduled Tylenol, PRN morphine, tramadol Orthopedic service consulted -recommend to keep splint in place temporarily ( x1 week) for pain control. If pt still in hospital 01/20 please notify ortho so splint can be d/c'd, otherwise, f/u with Dr Rodriguez early next week, [phone] for appt. Hypertension Mildly elevated while at the emergency room likely secondary to severe pain Approach with morphine, PRN hydralazine Hold usual HCTZ as patient received IV contrast Monitor, may need amlodipine tomorrow -Patient continues to be hypertensive, received amlodipine and hydralazine -Continue to closely monitor and restart HCTZ when renal function stable Right knee pain X-ray: 1. Mild soft tissue swelling and joint effusion with no acute bony abnormality identified. 2. Mild degenerative change and chondrocalcinosis as above. --Ice packs ordered -No complaints regarding her right knee today UTI -UA positive for bacteria, nitrite -Start ceftriaxone CKD stage III Stable Hypothyroidism Continue usual levothyroxine Obstructive sleep apnea CPAP ordered Activity PT OT ordered DVT prophylaxis Already on heparin drip Disposition PT and OT evaluation Usually lives at home with family Admission and Anticipated Discharge Date Admission Date: January 15, 2020 Subjective Patient is lying in bed, in no acute distress. She has some complaints of her left elbow pain. Currently her left arm is in a sling. Orthopedics consulted. Recommend outpatient follow-up. She is on IV heparin, starting warfarin today. Counseled on warfarin. Patient is aware of the medication, as her son was taking it for clots as well. Patient currently denies any fevers, chills, chest pain, shortness of breath, abdominal pain, nausea or vomiting. Review of Systems Review of Systems: All systems reviewed & are unremarkable except as noted in HPI & below Constitutional: no fever and no chills Respiratory: no cough and no dyspnea Cardiovascular: no chest pain and no palpitations Gastrointestinal: no abdominal pain, no nausea and no vomiting Physical Exam Physical Exam: General- elderly female, lying in bed, in no acute distress HEENT-normal cephalic, atraumatic, PERRL, EOMI, anicteric sclera, oropharynx clear Neck- supple, no JVD, no adenopathy, no thyromegaly Lungs- clear to auscultation bilaterally, no rales/wheezes Heart- normal rate, regular rhythm; no murmur, no gallop, no rub appreciated No hematoma, erythema on the right chest wall, positive mild tenderness on deep palpation of the region under the right breast Abdomen- normal bowel sounds, nondistended, soft, nontender to palpation Extremities-left arm in a sling, able to move fingers fully, splint also in place Right knee: Positive small area of abrasion, no erythema/warmth/tenderness no pretibial edema, no calf tenderness; peripheral pulses intact Patient moves extremities spontaneously and without difficulty Neuro- alert, oriented x 3; CN 2-12 grossly intact; motor 5/5 bilaterally, no sensory loss noted, moves extremities spontaneously and without difficulty Skin- warm & dry Results & Data Results & Data ([facility]) Vital Signs (Past 12 Hours) Vital Signs Temp Pulse Pulse Pulse Resp BP Pulse Ox 01/16/20 15:58 36.4 C L 46 L 17 176/90 H 94 01/16/20 15:00 61 01/16/20 11:57 37.0 C 61 17 138/79 93 01/16/20 08:09 36.4 C L 73 19 151/79 H 94 01/16/20 08:00 66 Laboratory Results 01/16/20 01/16/20 01/16/20 Range/Units 16:26 09:32 06:00 WBC (4.8-10.8) K/uL RBC (4.2-5.4) M/uL Hgb (12.0-16.0) g/dL Hct (37-47) % MCV (80-100) fL MCH (25-34) pg MCHC (32-36) g/dL RDW Std Deviation (36.4-46.3) fL RDW Coeff of Anyi (11.5-14.5) % Plt Count (130-400) K/uL MPV (7.4-10.4) fL Immature Gran % (Auto) % Neut % (Auto) % Lymph % (Auto) % [place] % (Auto) % Eos % (Auto) % Baso % (Auto) % Immature Gran # (Auto) (0.00-0.02) K/uL Neut # (Auto) (1.4-6.5) K/uL Lymph # (Auto) (1.2-3.4) K/uL [place] # (Auto) (0.11-0.59) K/uL Eos # (Auto) (0-0.5) K/uL Baso # (Auto) (0-0.2) K/uL PT (9.0-12.0) Seconds INR (0.9-1.1) APTT 70.0 H* 67.9 H* (21.0-31.0) Seconds PTT Ratio 2.5 2.4 Sodium (136-145) mmol/L Potassium (3.5-5.1) mmol/L Chloride (98-107) mmol/L Carbon Dioxide (21-32) mmol/L Anion Gap (3-11) BUN (7-18) mg/dl Creatinine (0.6-1.2) mg/dl Est Cr Clr Drug Dosing ml/min Est GFR ( Amer) Est GFR (Non-Af Amer) BUN/Creatinine Ratio (10-20) Glucose (70-99) mg/dl Calcium (8.5-10.1) mg/dl Total Bilirubin (0.2-1) mg/dl Direct Bilirubin (0-0.2) mg/dl AST (15-37) U/L ALT (12-78) U/L Alkaline Phosphatase (45-117) U/L Troponin I (0-0.045) ng/ml Total Protein (6.4-8.2) gm/dl Albumin (3.4-5.0) gm/dl Urine Color Yellow Urine Appearance Cloudy A (Clear) Urine pH 5.5 (4.5-7.5) Ur Specific [place] > 1.045 H (1.000-1.030) Urine Protein Negative (Negative) Urine Glucose (UA) Negative (Negative) Urine Ketones Negative (Negative) Urine Blood Negative (Negative) Urine Nitrite Positive A (Negative) Urine Bilirubin Negative (Negative) Urine Urobilinogen Negative (Negative) Ur Leukocyte Esterase 2+ H (Negative) Urine WBC (Auto) >30 H (0-5) /hpf Urine RBC (Auto) 0-4 (0-4) /hpf U Hyaline Cast (Auto) 1-5 (0-5) /lpf U Epithel Cells (Auto) 20-30 H (0-5) /lpf Urine Bacteria (Auto) 4+ H (Negative) 01/16/20 01/16/20 01/16/20 Range/Units 02:46 02:46 02:46 WBC 10.41 (4.8-10.8) K/uL RBC 4.14 L (4.2-5.4) M/uL Hgb 12.9 (12.0-16.0) g/dL Hct 38.6 (37-47) % MCV 93.2 (80-100) fL MCH 31.2 (25-34) pg MCHC 33.4 (32-36) g/dL RDW Std Deviation 49.0 H (36.4-46.3) fL RDW Coeff of Anyi 14.4 (11.5-14.5) % Plt Count 198 (130-400) K/uL MPV 10.9 H (7.4-10.4) fL Immature Gran % (Auto) 0.1 % Neut % (Auto) 60.5 % Lymph % (Auto) 22.3 % [place] % (Auto) 11.2 % Eos % (Auto) 5.4 % Baso % (Auto) 0.5 % Immature Gran # (Auto) 0.01 (0.00-0.02) K/uL Neut # (Auto) 6.30 (1.4-6.5) K/uL Lymph # (Auto) 2.32 (1.2-3.4) K/uL [place] # (Auto) 1.17 H (0.11-0.59) K/uL Eos # (Auto) 0.56 H (0-0.5) K/uL Baso # (Auto) 0.05 (0-0.2) K/uL PT (9.0-12.0) Seconds INR (0.9-1.1) APTT 73.9 H* (21.0-31.0) Seconds PTT Ratio 2.6 Sodium 140 (136-145) mmol/L Potassium 3.6 (3.5-5.1) mmol/L Chloride 106 (98-107) mmol/L Carbon Dioxide 25 (21-32) mmol/L Anion Gap 9.0 (3-11) BUN 24 H (7-18) mg/dl Creatinine 0.93 (0.6-1.2) mg/dl Est Cr Clr Drug Dosing 57.5 ml/min Est GFR ( Amer) 68.2 Est GFR (Non-Af Amer) 58.9 BUN/Creatinine Ratio 26.1 H (10-20) Glucose 105 H (70-99) mg/dl Calcium 8.4 L (8.5-10.1) mg/dl Total Bilirubin (0.2-1) mg/dl Direct Bilirubin (0-0.2) mg/dl AST (15-37) U/L ALT (12-78) U/L Alkaline Phosphatase (45-117) U/L Troponin I (0-0.045) ng/ml Total Protein (6.4-8.2) gm/dl Albumin (3.4-5.0) gm/dl Urine Color Urine Appearance (Clear) Urine pH (4.5-7.5) Ur Specific [place] (1.000-1.030) Urine Protein (Negative) Urine Glucose (UA) (Negative) Urine Ketones (Negative) Urine Blood (Negative) Urine Nitrite (Negative) Urine Bilirubin (Negative) Urine Urobilinogen (Negative) Ur Leukocyte Esterase (Negative) Urine WBC (Auto) (0-5) /hpf Urine RBC (Auto) (0-4) /hpf U Hyaline Cast (Auto) (0-5) /lpf U Epithel Cells (Auto) (0-5) /lpf Urine Bacteria (Auto) (Negative) 01/15/20 01/15/20 Range/Units 19:32 19:18 WBC (4.8-10.8) K/uL RBC (4.2-5.4) M/uL Hgb (12.0-16.0) g/dL Hct (37-47) % MCV (80-100) fL MCH (25-34) pg MCHC (32-36) g/dL RDW Std Deviation (36.4-46.3) fL RDW Coeff of Anyi (11.5-14.5) % Plt Count (130-400) K/uL MPV (7.4-10.4) fL Immature Gran % (Auto) % Neut % (Auto) % Lymph % (Auto) % [place] % (Auto) % Eos % (Auto) % Baso % (Auto) % Immature Gran # (Auto) (0.00-0.02) K/uL Neut # (Auto) (1.4-6.5) K/uL Lymph # (Auto) (1.2-3.4) K/uL [place] # (Auto) (0.11-0.59) K/uL Eos # (Auto) (0-0.5) K/uL Baso # (Auto) (0-0.2) K/uL PT 11.0 (9.0-12.0) Seconds INR 1.0 (0.9-1.1) APTT 23.0 (21.0-31.0) Seconds PTT Ratio 0.8 Sodium (136-145) mmol/L Potassium (3.5-5.1) mmol/L Chloride (98-107) mmol/L Carbon Dioxide (21-32) mmol/L Anion Gap (3-11) BUN (7-18) mg/dl Creatinine (0.6-1.2) mg/dl Est Cr Clr Drug Dosing ml/min Est GFR ( Amer) Est GFR (Non-Af Amer) BUN/Creatinine Ratio (10-20) Glucose (70-99) mg/dl Calcium (8.5-10.1) mg/dl Total Bilirubin 1.0 (0.2-1) mg/dl Direct Bilirubin 0.2 (0-0.2) mg/dl AST 25 (15-37) U/L ALT 42 (12-78) U/L Alkaline Phosphatase 77 (45-117) U/L Troponin I < 0.015 (0-0.045) ng/ml Total Protein 7.2 (6.4-8.2) gm/dl Albumin 3.6 (3.4-5.0) gm/dl Urine Color Urine Appearance (Clear) Urine pH (4.5-7.5) Ur Specific [place] (1.000-1.030) Urine Protein (Negative) Urine Glucose (UA) (Negative) Urine Ketones (Negative) Urine Blood (Negative) Urine Nitrite (Negative) Urine Bilirubin (Negative) Urine Urobilinogen (Negative) Ur Leukocyte Esterase (Negative) Urine WBC (Auto) (0-5) /hpf Urine RBC (Auto) (0-4) /hpf U Hyaline Cast (Auto) (0-5) /lpf U Epithel Cells (Auto) (0-5) /lpf Urine Bacteria (Auto) (Negative) Medications Administered Current Inpatient Medications Acetaminophen (Tylenol) 650 mg PO Q6H JAILYN Stop: 02/14/20 21:38 Last Admin: 01/16/20 15:35 Dose: 650 mg Documented by: Atorvastatin Calcium (Lipitor) 40 mg PO DAILY JAILYN Stop: 02/15/20 08:59 Last Admin: 01/16/20 07:59 Dose: 40 mg Documented by: Hydralazine HCl (Hydralazine Hcl) 5 mg IV Q6H PRN PRN Reason: hypertension Stop: 02/14/20 21:38 Heparin Sodium/Dextrose (Heparin Sodium/Dextrose) 25,000 units in 500 mls @ 13 mls/hr IV .Q24H [facility]; Protocol Stop: 02/14/20 21:38 Last Titration: 01/16/20 18:57 Dose: 650 units/hr, 13 mls/hr Documented by: Ceftriaxone Sodium 2,000 mg/ (Dextrose) 70 mls @ 100 mls/hr IV Q24H [facility]; Protocol Stop: 01/21/20 07:59 Last Infusion: 01/16/20 08:40 Dose: Infused Documented by: Levothyroxine Sodium (Synthroid) 75 mcg PO DAILYBB [facility] Stop: 02/15/20 06:29 Last Admin: 01/16/20 05:53 Dose: 75 mcg Documented by: Morphine Sulfate (Morphine Sulfate) 3 mg IV Q4H PRN PRN Reason: Severe Pain Stop: 01/29/20 21:38 Potassium Chloride (Klor-Con M20) 20 meq PO BID [facility] Stop: 02/14/20 21:38 Last Admin: 01/16/20 07:58 Dose: Not Given Documented by: Tramadol HCl (Ultram) 50 mg PO Q6H PRN PRN Reason: Pain Stop: 02/14/20 21:38 Warfarin Sodium (Coumadin) 5 mg PO DAILY@1600 [facility] Stop: 02/16/20 15:59
[2020-01-16 23:50] LABS: Partial Thromboplastin Ratio 2.3
[2020-01-16 23:51] LABS: Partial Thromboplastin Time 63.9 Seconds (21.0-31.0)
[2020-01-17] MEDS: HEPARIN SODIUM/DEXTROSE 25,000 UNITS/500 ML BAG IV SCH ×2 (03:10→18:54)
[2020-01-17] MEDS: HydrALAZINE HCL 20 MG/ML VIAL IV PRN (04:53)
[2020-01-17] MEDS: ACETAMINOPHEN 325 MG TAB PO SCH ×4 (04:53→21:20)
[2020-01-17] MEDS: LEVOTHYROXINE SODIUM 75 MCG TABLET PO SCH (04:54)
--- NOTE | 2020-01-17 05:35 | Electrocardiogram Report ---
Test Reason : Blood Pressure : / mmHG Vent. Rate : 051 BPM Atrial Rate : 051 BPM P-R Int : 184 ms QRS Dur : 090 ms QT Int : 450 ms P-R-T Axes : 037 -05 009 degrees QTc Int : 414 ms Sinus bradycardia with marked sinus arrhythmia with Premature ventricular complexes Low voltage QRS Borderline ECG When compared with ECG of 15-JAN-2020 16:40, Premature ventricular complexes are now Present Confirmed by Dandy Clements ([id number]) on 01/17/2020 5:35:24 AM Referred By: REFERRED SELF Confirmed By:Dandy Clements
--- NOTE | 2020-01-17 05:35 | Electrocardiogram Report ---
Test Reason : Blood Pressure : / mmHG Vent. Rate : 066 BPM Atrial Rate : 066 BPM P-R Int : 186 ms QRS Dur : 090 ms QT Int : 442 ms P-R-T Axes : 037 -15 011 degrees QTc Int : 463 ms Normal sinus rhythm Septal infarct (cited on or before 02-JUL-2019) Abnormal ECG When compared with ECG of 02-JUL-2019 17:46, Premature ventricular complexes are no longer Present Premature atrial complexes are no longer Present Questionable change in initial forces of Septal leads Confirmed by Dandy Clements ([id number]) on 01/17/2020 5:34:45 AM Referred By: REFERRED SELF Confirmed By:Dandy Clements
--- NOTE | 2020-01-17 05:36 | Electrocardiogram Report ---
Test Reason : Blood Pressure : / mmHG Vent. Rate : 045 BPM Atrial Rate : 045 BPM P-R Int : 172 ms QRS Dur : 086 ms QT Int : 454 ms P-R-T Axes : 059 -12 009 degrees QTc Int : 392 ms Sinus bradycardia with occasional Premature ventricular complexes Cannot rule out Anterior infarct , age undetermined Abnormal ECG When compared with ECG of 15-JAN-2020 16:40, No significant change Confirmed by Dandy Clements ([id number]) on 01/17/2020 5:35:53 AM Referred By: REFERRED SELF Confirmed By:Dandy Clements
[2020-01-17 07:00] LABS: Basophils # (auto) 0.05 K/uL (0-0.2); Basophils % (auto) 0.6 %; Eosinophils # (auto) 0.62 K/uL (0-0.5); Eosinophils % (auto) 7.4 %; Hematocrit (blood only) 37.7 % (37-47); Hemoglobin 12.7 g/dL (12.0-16.0); Immature Granulocytes # (auto) 0.01 K/uL (0.00-0.02); Immature Granulocytes % (auto) 0.1 %; Lymphocytes # (auto) 2.26 K/uL (1.2-3.4); Lymphocytes % (auto) 26.8 %; Mean Corpuscular Hemoglobin 31.4 pg (25-34); Mean Corpuscular Hgb Conc 33.7 g/dL (32-36); Mean Corpuscular Volume 93.3 fL (80-100); Monocytes # (auto) 0.94 K/uL (0.11-0.59); Monocytes % (auto) 11.2 %; Neutrophils # (auto) 4.54 K/uL (1.4-6.5); Neutrophils % (auto) 53.9 %; Platelet Count 196 K/uL (130-400); RDW Coefficient of Variation 14.4 % (11.5-14.5); Red Blood Count 4.04 M/uL (4.2-5.4); White Blood Count 8.42 K/uL (4.8-10.8)
[2020-01-17 07:06] LABS: INR 1.1 (0.9-1.1); Prothrombin Time 11.4 Seconds (9.0-12.0)
[2020-01-17 07:33] LABS: BUN Creatinine Ratio 22.5 (10-20); Calcium 8.6 mg/dl (8.5-10.1); Creatinine Clr Calc Pharmacy 64.3 ml/min; Est GFR (African American) 78.3; Est GFR (Non-African American) 67.5; Magnesium 1.8 mg/dl (1.8-2.4); Phosphorus 3.1 mg/dl (2.5-4.9); Potassium 3.4 mmol/L (3.5-5.1)
[2020-01-17 08:53] LABS: Partial Thromboplastin Ratio 2.1
[2020-01-17 08:54] LABS: Partial Thromboplastin Time 58.4 Seconds (21.0-31.0)
[2020-01-17] MEDS: POTASSIUM CHLORIDE 20 MEQ TABCR PO SCH ×2 (09:36→21:20)
[2020-01-17] MEDS: ATORVASTATIN 40 MG TAB PO SCH (09:36)
[2020-01-17] MEDS: cefTRIAXone SODIUM 2,000 MG in DEXTROSE 5% 50 ML IV SCH (09:45)
[2020-01-17] MEDS ORDERED: POTASSIUM CHLORIDE 20 MEQ TABCR PO STA (10:38)
[2020-01-17] MEDS ORDERED: AMLODIPINE BESYLATE 5 MG TAB PO ONE (10:45)
[2020-01-17] MEDS: TRAMADOL HCL 50 MG TABLET PO PRN (13:31)
[2020-01-17] MEDS: WARFARIN SOD 5 MG TAB PO SCH (18:15)
--- NOTE | 2020-01-17 19:52 | Hospitalist Progress Note ---
Date of Service January 17, 2020 Assessment & Plan (1) Pulmonary embolism, bilateral: 71-year-old female with history of hypertension, CKD stage III, obstructive sleep apnea on CPAP, presenting with progressive right rib pain and left elbow pain after a fall yesterday. Acute bilateral pulmonary embolism Risk factors: Poor mobility secondary to generalized fatigue for the past few weeks, reports that her aunt and her son has history of blood clots CT angiogram of the chest: 1. Segmental and subsegmental pulmonary emboli are present bilaterally as detailed above. 2. There is no acute posttraumatic intrathoracic abnormality. 3. There is no lobar consolidation, pleural effusion, or pneumothorax. 4. Moderate hiatal hernia. 5. Numerous tiny groundglass nodules are again seen scattered throughout both lungs. This has not significantly changed from 07/02/2019. Consider nonemergent pulmonology follow-up. 6. Cardiomegaly. 7. Additional findings as above. Saturating well on room air, blood pressure elevated Echocardiogram ordered - sinus bradycardia during procedure, LV normal size, mild concentric LVH, LV wall motion is normal, EF 65 to 70%, grade 1 diastolic dysfunction. Right ventricle normal in size and function. Doppler findings do not suggest pulmonary hypertension. Heparin standard dose with bolus ordered, continued after patient's blood pressure improved In light of elevated BMI, may not be a good candidate for the novel anticoagulants, discussed with pharmacist or clinical care coordinator -Discussed warfarin with patient, she is familiar with the medication, as her son was also taking it in the past. -started warfarin, will contact anticoagulation clinic for set up -Monitor INR Will need hematology referral as an outpatient and hypercoagulable work-up Telemetry reviewed, patient has episodes of sinus bradycardia, and sinus arrhythmia May need phototypesetting equipment monitor placement as outpatient Left radial head nondisplaced fracture, status post fall Appears to be mechanical fall, no prodrome Left Elbow Xray: IMPRESSION: Nondisplaced radial head fracture as above with associated joint effusion. Arm sling ordered, scheduled Tylenol, PRN morphine, tramadol Orthopedic service consulted -recommend to keep splint in place temporarily ( x1 week) for pain control. If pt still in hospital 01/20 please notify ortho so splint can be d/c'd, otherwise, f/u with Dr Rodriguez early next week, [phone] for appt. Hypertension Mildly elevated while at the emergency room likely secondary to severe pain Approach with morphine, PRN hydralazine Held usual HCTZ as patient received IV contrast -Patient continues to be hypertensive, received amlodipine and hydralazine -Continue to closely monitor and restart HCTZ when renal function stable Right knee pain X-ray: 1. Mild soft tissue swelling and joint effusion with no acute bony abnormality identified. 2. Mild degenerative change and chondrocalcinosis as above. --Ice packs ordered - No complaints regarding her right knee today UTI -UA positive for bacteria, nitrite - cont. ceftriaxone CKD stage III Stable Hypothyroidism Continue usual levothyroxine Obstructive sleep apnea CPAP ordered Activity PT OT ordered DVT prophylaxis Already on heparin drip Disposition PT and OT evaluation -OT recommends home OT, per PT patient is safe to return home Usually lives at home with family Admission and Anticipated Discharge Date Admission Date: January 15, 2020 Subjective Patient is lying in bed, in no acute distress. She has some complaints of her left elbow pain. Currently her left arm is in a sling. Orthopedics consulted. Recommend outpatient follow-up. She is on IV heparin, started warfarin. Patient currently denies any fevers, chills, chest pain, shortness of breath, abdominal pain, nausea or vomiting. Review of Systems Review of Systems: All systems reviewed & are unremarkable except as noted in HPI & below Constitutional: no fever and no chills Respiratory: no cough and no dyspnea Cardiovascular: no chest pain and no palpitations Gastrointestinal: no abdominal pain, no nausea and no vomiting Musculoskeletal: + joint pain (Left elbow) Physical Exam Physical Exam: General- elderly female, lying in bed, in no acute distress HEENT-normal cephalic, atraumatic, PERRL, EOMI, anicteric sclera, oropharynx clear Neck- supple, no JVD, no adenopathy, no thyromegaly Lungs- clear to auscultation bilaterally, no rales/wheezes Heart- normal rate, regular rhythm; no murmur, no gallop, no rub appreciated No hematoma, erythema on the right chest wall, positive mild tenderness on deep palpation of the region under the right breast Abdomen- normal bowel sounds, nondistended, soft, nontender to palpation Extremities-left arm in a sling, able to move fingers fully, splint also in place Right knee: Positive small area of abrasion, no erythema/warmth/tenderness no pretibial edema, no calf tenderness; peripheral pulses intact Patient moves extremities spontaneously and without difficulty Neuro- alert, oriented x 3; speech fluent, no facial asymmetry, answers questions appropriately, CN 2-12 grossly intact; motor 5/5 bilaterally, no sensory loss noted, moves extremities spontaneously and without difficulty Skin- warm & dry Results & Data Results & Data ([facility]) Vital Signs (Past 12 Hours) Vital Signs Temp Pulse Pulse Resp BP Pulse Ox 01/17/20 16:38 37.4 C 84 20 160/77 H 95 01/17/20 11:59 36.8 C 86 18 128/84 96 01/17/20 08:00 56 L Laboratory Results 01/17/20 01/17/20 01/17/20 Range/Units 06:09 06:09 06:09 WBC 8.42 (4.8-10.8) K/uL RBC 4.04 L (4.2-5.4) M/uL Hgb 12.7 (12.0-16.0) g/dL Hct 37.7 (37-47) % MCV 93.3 (80-100) fL MCH 31.4 (25-34) pg MCHC 33.7 (32-36) g/dL RDW Std Deviation 49.0 H (36.4-46.3) fL RDW Coeff of Anyi 14.4 (11.5-14.5) % Plt Count 196 (130-400) K/uL MPV 11.0 H (7.4-10.4) fL Immature Gran % (Auto) 0.1 % Neut % (Auto) 53.9 % Lymph % (Auto) 26.8 % [place] % (Auto) 11.2 % Eos % (Auto) 7.4 % Baso % (Auto) 0.6 % Immature Gran # (Auto) 0.01 (0.00-0.02) K/uL Neut # (Auto) 4.54 (1.4-6.5) K/uL Lymph # (Auto) 2.26 (1.2-3.4) K/uL [place] # (Auto) 0.94 H (0.11-0.59) K/uL Eos # (Auto) 0.62 H (0-0.5) K/uL Baso # (Auto) 0.05 (0-0.2) K/uL PT 11.4 (9.0-12.0) Seconds INR 1.1 (0.9-1.1) APTT 58.4 H* (21.0-31.0) Seconds PTT Ratio 2.1 Sodium 139 (136-145) mmol/L Potassium 3.4 L (3.5-5.1) mmol/L Chloride 108 H (98-107) mmol/L Carbon Dioxide 24 (21-32) mmol/L Anion Gap 7.0 (3-11) BUN 19 H (7-18) mg/dl Creatinine 0.83 (0.6-1.2) mg/dl Est Cr Clr Drug Dosing 64.3 ml/min Est GFR ( Amer) 78.3 Est GFR (Non-Af Amer) 67.5 BUN/Creatinine Ratio 22.5 H (10-20) Glucose 89 (70-99) mg/dl Calcium 8.6 (8.5-10.1) mg/dl Phosphorus 3.1 (2.5-4.9) mg/dl Magnesium 1.8 (1.8-2.4) mg/dl /02/27 Range/Units 23:17 WBC (4.8-10.8) K/uL RBC (4.2-5.4) M/uL Hgb (12.0-16.0) g/dL Hct (37-47) % MCV (80-100) fL MCH (25-34) pg MCHC (32-36) g/dL RDW Std Deviation (36.4-46.3) fL RDW Coeff of Anyi (11.5-14.5) % Plt Count (130-400) K/uL MPV (7.4-10.4) fL Immature Gran % (Auto) % Neut % (Auto) % Lymph % (Auto) % [place] % (Auto) % Eos % (Auto) % Baso % (Auto) % Immature Gran # (Auto) (0.00-0.02) K/uL Neut # (Auto) (1.4-6.5) K/uL Lymph # (Auto) (1.2-3.4) K/uL [place] # (Auto) (0.11-0.59) K/uL Eos # (Auto) (0-0.5) K/uL Baso # (Auto) (0-0.2) K/uL PT (9.0-12.0) Seconds INR (0.9-1.1) APTT 63.9 H* (21.0-31.0) Seconds PTT Ratio 2.3 Sodium (136-145) mmol/L Potassium (3.5-5.1) mmol/L Chloride (98-107) mmol/L Carbon Dioxide (21-32) mmol/L Anion Gap (3-11) BUN (7-18) mg/dl Creatinine (0.6-1.2) mg/dl Est Cr Clr Drug Dosing ml/min Est GFR ( Amer) Est GFR (Non-Af Amer) BUN/Creatinine Ratio (10-20) Glucose (70-99) mg/dl Calcium (8.5-10.1) mg/dl Phosphorus (2.5-4.9) mg/dl Magnesium (1.8-2.4) mg/dl Medications Administered Current Inpatient Medications Acetaminophen (Tylenol) 650 mg PO Q6H [facility] Stop: 02/14/20 21:38 Last Admin: 01/17/20 18:17 Dose: 650 mg Documented by: Atorvastatin Calcium (Lipitor) 40 mg PO DAILY [facility] Stop: 02/15/20 08:59 Last Admin: 01/17/20 09:36 Dose: 40 mg Documented by: Hydralazine HCl (Hydralazine Hcl) 5 mg IV Q6H PRN PRN Reason: hypertension Stop: 02/14/20 21:38 Last Admin: 01/17/20 04:53 Dose: 5 mg Documented by: Hydralazine HCl (Apresoline) 10 mg PO BID [facility] Stop: 02/16/20 20:59 Heparin Sodium/Dextrose (Heparin Sodium/Dextrose) 25,000 units in 500 mls @ 13 mls/hr IV .Q24H [facility]; Protocol Stop: 02/14/20 21:38 Last Titration: 01/17/20 19:10 Dose: 650 units/hr, 13 mls/hr Documented by: Ceftriaxone Sodium 2,000 mg/ (Dextrose) 70 mls @ 100 mls/hr IV Q24H [facility]; Protocol Stop: 01/21/20 07:59 Last Infusion: 01/17/20 10:30 Dose: Infused Documented by: Levothyroxine Sodium (Synthroid) 75 mcg PO DAILYBB [facility] Stop: 02/15/20 06:29 Last Admin: 01/17/20 04:54 Dose: 75 mcg Documented by: Morphine Sulfate (Morphine Sulfate) 3 mg IV Q4H PRN PRN Reason: Severe Pain Stop: 01/29/20 21:38 Potassium Chloride (Klor-Con M20) 20 meq PO BID [facility] Stop: 02/14/20 21:38 Last Admin: 01/17/20 09:36 Dose: 20 meq Documented by: Tramadol HCl (Ultram) 50 mg PO Q6H PRN PRN Reason: Pain Stop: 02/14/20 21:38 Last Admin: 01/17/20 13:31 Dose: 50 mg Documented by: Warfarin Sodium (Coumadin) 5 mg PO DAILY@1600 [facility] Stop: 02/16/20 15:59 Last Admin: 01/17/20 18:15 Dose: 5 mg Documented by:
[2020-01-17] MEDS: HydrALAZINE 10 MG TAB PO SCH (21:20)
[2020-01-18] MEDS: HydrALAZINE HCL 20 MG/ML VIAL IV PRN (04:32)
[2020-01-18] MEDS: ACETAMINOPHEN 325 MG TAB PO SCH ×4 (04:33→20:54)
[2020-01-18] MEDS: LEVOTHYROXINE SODIUM 75 MCG TABLET PO SCH (04:33)
[2020-01-18 06:25] LABS: Basophils # (auto) 0.03 K/uL (0-0.2); Basophils % (auto) 0.3 %; Eosinophils # (auto) 0.55 K/uL (0-0.5); Eosinophils % (auto) 5.9 %; Hematocrit (blood only) 38.5 % (37-47); Hemoglobin 13.1 g/dL (12.0-16.0); Immature Granulocytes # (auto) 0.02 K/uL (0.00-0.02); Immature Granulocytes % (auto) 0.2 %; Lymphocytes # (auto) 2.25 K/uL (1.2-3.4); Mean Corpuscular Hemoglobin 31.6 pg (25-34); Mean Platelet Volume 10.5 fL (7.4-10.4); Monocytes # (auto) 1.24 K/uL (0.11-0.59); Monocytes % (auto) 13.2 %; Neutrophils % (auto) 56.4 %; Platelet Count 201 K/uL (130-400); RDW Coefficient of Variation 14.3 % (11.5-14.5); RDW Standard Deviation 48.8 fL (36.4-46.3); Red Blood Count 4.14 M/uL (4.2-5.4); White Blood Count 9.39 K/uL (4.8-10.8)
[2020-01-18 06:45] LABS: INR 1.2 (0.9-1.1); Partial Thromboplastin Ratio 2.5; Prothrombin Time 12.4 Seconds (9.0-12.0)
[2020-01-18 06:49] LABS: BUN Creatinine Ratio 17.4 (10-20); Creatinine Clr Calc Pharmacy 65.7 ml/min; Est GFR (African American) 80.6; Est GFR (Non-African American) 69.6; Magnesium 1.8 mg/dl (1.8-2.4); Phosphorus 3.2 mg/dl (2.5-4.9); Potassium 3.8 mmol/L (3.5-5.1)
[2020-01-18 06:52] LABS: Partial Thromboplastin Time 69.2 Seconds (21.0-31.0)
--- NOTE | 2020-01-18 07:08 | Orthopedic Progress Note ---
Date of Service January 18, 2020 Assessment & Plan (1) Fracture, radius, head: 79 yo female with bilat PEs stable with nondisplaced left radial fracture 1. Med management 2. DVT prophylaxis- heparin, coumadin, SCDs 3. PT/OT 4. D/C planning- ortho to sign off, would like to keep splint in place x 1 week, if pt still in hospital 01/20 please notify ortho so splint can be d/c'd, otherwise, f/u with Dr Rodriguez early next week, [phone] for appt Admission and Anticipated Discharge Date Admission Date: January 15, 2020 Subjective Pt resting in bed, minimal pain left elbow Physical Exam Physical Exam: Splint in place, fingers mobile, NVI Results & Data ([facility]) Vital Signs (Past 12 Hours) Vital Signs Temp Pulse Pulse Resp BP Pulse Ox 01/18/20 03:55 36.5 C 57 L 18 204/82 H 97 01/18/20 03:44 50 L 18 97 01/18/20 00:10 36.3 C L 74 18 157/74 H 97 01/17/20 22:12 59 L 16 96 01/17/20 20:14 37.0 C 63 20 147/74 H 94 (1) Fracture, radius, head Encounter type: initial encounter Fracture alignment: nondisplaced Fracture type: closed Laterality: left Qualified Code(s): S52.125A - Nondisplaced fracture of head of left radius, initial encounter for closed fracture
[2020-01-18] MEDS ORDERED: MAGNESIUM SULFATE / D5W 1 GM/100 ML BAG IV ONE (08:02)
[2020-01-18] MEDS: ATORVASTATIN 40 MG TAB PO SCH (08:02)
[2020-01-18] MEDS: hydroCHLOROthiazide 25 MG TAB PO SCH (08:02)
[2020-01-18] MEDS: cefTRIAXone SODIUM 2,000 MG in DEXTROSE 5% 50 ML IV SCH (08:02)
--- NOTE | 2020-01-18 08:02 | Hospitalist Progress Note ---
Date of Service January 18, 2020 Assessment & Plan (1) Pulmonary embolism, bilateral: 71-year-old female with history of hypertension, CKD stage III, obstructive sleep apnea on CPAP, presenting with progressive right rib pain and left elbow pain after a fall yesterday. Acute bilateral pulmonary embolism Risk factors: Poor mobility secondary to generalized fatigue for the past few weeks, reports that her aunt and her son has history of blood clots CT angiogram of the chest: 1. Segmental and subsegmental pulmonary emboli are present bilaterally as detailed above. 2. There is no acute posttraumatic intrathoracic abnormality. 3. There is no lobar consolidation, pleural effusion, or pneumothorax. 4. Moderate hiatal hernia. 5. Numerous tiny groundglass nodules are again seen scattered throughout both lungs. This has not significantly changed from 07/02/2019. Consider nonemergent pulmonology follow-up. 6. Cardiomegaly. 7. Additional findings as above. Saturating well on room air, blood pressure elevated Echocardiogram ordered - sinus bradycardia during procedure, LV normal size, mild concentric LVH, LV wall motion is normal, EF 65 to 70%, grade 1 diastolic dysfunction. Right ventricle normal in size and function. Doppler findings do not suggest pulmonary hypertension. Heparin standard dose with bolus ordered, continued after patient's blood pressure improved In light of elevated BMI, may not be a good candidate for the novel anticoagulants, discussed with pharmacist or air cargo ground crew supervisor -Discussed warfarin with patient, she is familiar with the medication, as her son was also taking it in the past. -started warfarin, will contact anticoagulation clinic for set up -Monitor INR Will need hematology referral as an outpatient and hypercoagulable work-up Telemetry reviewed, patient has episodes of sinus bradycardia, and sinus arrhythmia May need threat monitoring analyst placement as outpatient Left radial head nondisplaced fracture, status post fall Appears to be mechanical fall, no prodrome Left Elbow Xray: IMPRESSION: Nondisplaced radial head fracture as above with associated joint effusion. Arm sling ordered, scheduled Tylenol, PRN morphine, tramadol Orthopedic service consulted -recommend to keep splint in place temporarily ( x1 week) for pain control. If pt still in hospital 01/20 please notify ortho so splint can be d/c'd, otherwise, f/u with Dr Rodriguez early next week, [phone] for appt. Hypertension Mildly elevated while at the emergency room likely secondary to severe pain Approach with morphine, PRN hydralazine Held usual HCTZ as patient received IV contrast -Patient continues to be hypertensive, received amlodipine and hydralazine -Restart HCTZ Right knee pain X-ray: 1. Mild soft tissue swelling and joint effusion with no acute bony abnormality identified. 2. Mild degenerative change and chondrocalcinosis as above. --Ice packs ordered - No complaints regarding her right knee today UTI -UA positive for bacteria, nitrite - cont. ceftriaxone Hypokalemia - goal K >4 -Likely due to poor appetite -Replace and monitor CKD stage III Stable Hypothyroidism Continue usual levothyroxine Obstructive sleep apnea CPAP ordered Activity PT OT ordered DVT prophylaxis Already on heparin drip Disposition PT and OT evaluation -OT recommends home OT, per PT patient is safe to return home Usually lives at home with family Admission and Anticipated Discharge Date Admission Date: January 15, 2020 Subjective Patient is lying in bed, in no acute distress. She has some complaints of her left elbow pain. Currently her left arm is in a sling. Orthopedics consulted. Recommend splint for 1week and outpatient follow-up. She is on IV heparin, started warfarin. Patient currently denies any fevers, chills, chest pain, shortness of breath, abdominal pain, nausea or vomiting. She continues to have poor appetite. Review of Systems Review of Systems: All systems reviewed & are unremarkable except as noted in HPI & below Constitutional: no fever and no chills Respiratory: no cough and no dyspnea Cardiovascular: no chest pain and no palpitations Gastrointestinal: no abdominal pain, no nausea and no vomiting Musculoskeletal: + joint pain (Left elbow) Physical Exam Physical Exam: General- elderly female, lying in bed, in no acute distress HEENT-normocephalic, atraumatic, PERRL, EOMI, anicteric sclera, oropharynx clear Neck- supple, no JVD, no adenopathy, no thyromegaly Lungs- clear to auscultation bilaterally, no rales/wheezes Heart- normal rate, regular rhythm; no murmur, no gallop, no rub appreciated Abdomen- normal bowel sounds, nondistended, soft, nontender to palpation Extremities-left arm in a sling, able to move fingers fully, splint also in place Right knee: Positive small area of abrasion, no erythema/warmth/tenderness, no pretibial edema, no calf tenderness; peripheral pulses intact Patient moves extremities spontaneously and without difficulty Neuro- alert, oriented x 3; speech fluent, no facial asymmetry, answers questions appropriately, CN 2-12 grossly intact; motor 5/5 bilaterally, no sensory loss noted, moves extremities spontaneously and without difficulty Skin- warm & dry Results & Data Results & Data ([facility]) Vital Signs (Past 12 Hours) Vital Signs Temp Pulse Pulse Resp BP Pulse Ox 01/18/20 07:57 36.4 C L 80 19 189/87 H 98 01/18/20 03:55 36.5 C 57 L 18 204/82 H 97 01/18/20 03:44 50 L 18 97 01/18/20 00:10 36.3 C L 74 18 157/74 H 97 01/17/20 22:12 59 L 16 96 01/17/20 20:14 37.0 C 63 20 147/74 H 94 Laboratory Results 01/18/20 01/18/20 01/18/20 Range/Units 06:01 06:01 06:01 WBC 9.39 (4.8-10.8) K/uL RBC 4.14 L (4.2-5.4) M/uL Hgb 13.1 (12.0-16.0) g/dL Hct 38.5 (37-47) % MCV 93.0 (80-100) fL MCH 31.6 (25-34) pg MCHC 34.0 (32-36) g/dL RDW Std Deviation 48.8 H (36.4-46.3) fL RDW Coeff of Anyi 14.3 (11.5-14.5) % Plt Count 201 (130-400) K/uL MPV 10.5 H (7.4-10.4) fL Immature Gran % (Auto) 0.2 % Neut % (Auto) 56.4 % Lymph % (Auto) 24.0 % [place] % (Auto) 13.2 % Eos % (Auto) 5.9 % Baso % (Auto) 0.3 % Immature Gran # (Auto) 0.02 (0.00-0.02) K/uL Neut # (Auto) 5.30 (1.4-6.5) K/uL Lymph # (Auto) 2.25 (1.2-3.4) K/uL [place] # (Auto) 1.24 H (0.11-0.59) K/uL Eos # (Auto) 0.55 H (0-0.5) K/uL Baso # (Auto) 0.03 (0-0.2) K/uL PT 12.4 H (9.0-12.0) Seconds INR 1.2 H (0.9-1.1) APTT 69.2 H* (21.0-31.0) Seconds PTT Ratio 2.5 Sodium 138 (136-145) mmol/L Potassium 3.8 (3.5-5.1) mmol/L Chloride 108 H (98-107) mmol/L Carbon Dioxide 25 (21-32) mmol/L Anion Gap 5.0 (3-11) BUN 14 (7-18) mg/dl Creatinine 0.81 (0.6-1.2) mg/dl Est Cr Clr Drug Dosing 65.7 ml/min Est GFR ( Amer) 80.6 Est GFR (Non-Af Amer) 69.6 BUN/Creatinine Ratio 17.4 (10-20) Glucose 93 (70-99) mg/dl Calcium 9.0 (8.5-10.1) mg/dl Phosphorus 3.2 (2.5-4.9) mg/dl Magnesium 1.8 (1.8-2.4) mg/dl 01/17/20 Range/Units 06:09 WBC (4.8-10.8) K/uL RBC (4.2-5.4) M/uL Hgb (12.0-16.0) g/dL Hct (37-47) % MCV (80-100) fL MCH (25-34) pg MCHC (32-36) g/dL RDW Std Deviation (36.4-46.3) fL RDW Coeff of Anyi (11.5-14.5) % Plt Count (130-400) K/uL MPV (7.4-10.4) fL Immature Gran % (Auto) % Neut % (Auto) % Lymph % (Auto) % [place] % (Auto) % Eos % (Auto) % Baso % (Auto) % Immature Gran # (Auto) (0.00-0.02) K/uL Neut # (Auto) (1.4-6.5) K/uL Lymph # (Auto) (1.2-3.4) K/uL [place] # (Auto) (0.11-0.59) K/uL Eos # (Auto) (0-0.5) K/uL Baso # (Auto) (0-0.2) K/uL PT 11.4 (9.0-12.0) Seconds INR 1.1 (0.9-1.1) APTT 58.4 H* (21.0-31.0) Seconds PTT Ratio 2.1 Sodium (136-145) mmol/L Potassium (3.5-5.1) mmol/L Chloride (98-107) mmol/L Carbon Dioxide (21-32) mmol/L Anion Gap (3-11) BUN (7-18) mg/dl Creatinine (0.6-1.2) mg/dl Est Cr Clr Drug Dosing ml/min Est GFR ( Amer) Est GFR (Non-Af Amer) BUN/Creatinine Ratio (10-20) Glucose (70-99) mg/dl Calcium (8.5-10.1) mg/dl Phosphorus (2.5-4.9) mg/dl Magnesium (1.8-2.4) mg/dl Medications Administered Current Inpatient Medications Acetaminophen (Tylenol) 650 mg PO Q6H [facility] Stop: 02/14/20 21:38 Last Admin: 01/18/20 04:33 Dose: 650 mg Documented by: Atorvastatin Calcium (Lipitor) 40 mg PO DAILY [facility] Stop: 02/15/20 08:59 Last Admin: 01/17/20 09:36 Dose: 40 mg Documented by: Hydralazine HCl (Hydralazine Hcl) 5 mg IV Q6H PRN PRN Reason: hypertension Stop: 02/14/20 21:38 Last Admin: 01/18/20 04:32 Dose: 5 mg Documented by: Hydralazine HCl (Apresoline) 10 mg PO BID [facility] Stop: 02/16/20 20:59 Last Admin: 01/17/20 21:20 Dose: 10 mg Documented by: Hydrochlorothiazide (Hctz) 25 mg PO QAM [facility] Stop: 02/17/20 08:59 Heparin Sodium/Dextrose (Heparin Sodium/Dextrose) 25,000 units in 500 mls @ 12 mls/hr IV .Q24H [facility]; Protocol Stop: 02/14/20 21:38 Last Titration: 01/18/20 06:53 Dose: 600 units/hr, 12 mls/hr Documented by: Ceftriaxone Sodium 2,000 mg/ (Dextrose) 70 mls @ 100 mls/hr IV Q24H [facility]; Protocol Stop: 01/21/20 07:59 Last Infusion: 01/17/20 10:30 Dose: Infused Documented by: Levothyroxine Sodium (Synthroid) 75 mcg PO DAILYBB [facility] Stop: 02/15/20 06:29 Last Admin: 01/18/20 04:33 Dose: 75 mcg Documented by: Morphine Sulfate (Morphine Sulfate) 3 mg IV Q4H PRN PRN Reason: Severe Pain Stop: 01/29/20 21:38 Potassium Chloride (Klor-Con M20) 20 meq PO BID [facility] Stop: 02/14/20 21:38 Last Admin: 01/17/20 21:20 Dose: 20 meq Documented by: Tramadol HCl (Ultram) 50 mg PO Q6H PRN PRN Reason: Pain Stop: 02/14/20 21:38 Last Admin: 01/17/20 13:31 Dose: 50 mg Documented by: Warfarin Sodium (Coumadin) 5 mg PO DAILY@1600 [facility] Stop: 02/16/20 15:59 Last Admin: 01/17/20 18:15 Dose: 5 mg Documented by:
[2020-01-18] MEDS: HydrALAZINE 10 MG TAB PO SCH ×3 (08:03→20:50)
[2020-01-18] MEDS: POTASSIUM CHLORIDE 20 MEQ TABCR PO SCH ×2 (08:03→20:51)
[2020-01-18] MEDS ORDERED: AMLODIPINE BESYLATE 5 MG TAB PO SCH (09:00)
[2020-01-18 13:26] LABS: Partial Thromboplastin Ratio 2.1
[2020-01-18 13:45] LABS: Partial Thromboplastin Time 59.8 Seconds (21.0-31.0)
[2020-01-18] MEDS: WARFARIN SOD 5 MG TAB PO SCH (16:27)
[2020-01-18] MEDS: HEPARIN SODIUM/DEXTROSE 25,000 UNITS/500 ML BAG IV SCH (17:12)
[2020-01-19] MEDS: HydrALAZINE HCL 20 MG/ML VIAL IV PRN (00:45)
[2020-01-19] MEDS: ACETAMINOPHEN 325 MG TAB PO SCH (03:44)
[2020-01-19] MEDS: LEVOTHYROXINE SODIUM 75 MCG TABLET PO SCH (05:32)
[2020-01-19] MEDS ORDERED: HYDROmorphone INJ 0.5 MG/0.5 ML SYR IV PRN (07:14)
[2020-01-19] MEDS ORDERED: OXYCODONE HCL IR 5 MG TAB (IMMEDIATE RELEASE) PO PRN (07:14)
[2020-01-19] MEDS ORDERED: ACETAMINOPHEN 325 MG TAB PO PRN (07:15)
[2020-01-19 07:20] LABS: Basophils # (auto) 0.05 K/uL (0-0.2); Basophils % (auto) 0.5 %; Eosinophils # (auto) 0.66 K/uL (0-0.5); Eosinophils % (auto) 7.2 %; Hematocrit (blood only) 42.2 % (37-47); Immature Granulocytes # (auto) 0.02 K/uL (0.00-0.02); Immature Granulocytes % (auto) 0.2 %; Lymphocytes # (auto) 2.05 K/uL (1.2-3.4); Lymphocytes % (auto) 22.3 %; Mean Corpuscular Hemoglobin 31.2 pg (25-34); Mean Corpuscular Hgb Conc 33.2 g/dL (32-36); Mean Platelet Volume 10.8 fL (7.4-10.4); Monocytes % (auto) 10.9 %; Neutrophils # (auto) 5.41 K/uL (1.4-6.5); Neutrophils % (auto) 58.9 %; Platelet Count 254 K/uL (130-400); RDW Coefficient of Variation 14.4 % (11.5-14.5); Red Blood Count 4.49 M/uL (4.2-5.4); White Blood Count 9.19 K/uL (4.8-10.8)
[2020-01-19 07:33] LABS: INR 1.6 (0.9-1.1); Prothrombin Time 16.7 Seconds (9.0-12.0)
[2020-01-19 07:47] LABS: BUN Creatinine Ratio 12.8 (10-20); Calcium 9.5 mg/dl (8.5-10.1); Creatinine Clr Calc Pharmacy 64.7 ml/min; Est GFR (African American) 79.4; Est GFR (Non-African American) 68.5; Potassium 3.8 mmol/L (3.5-5.1)
[2020-01-19] MEDS ORDERED: AMLODIPINE BESYLATE 5 MG TAB PO ONE (08:00)
[2020-01-19] MEDS: POTASSIUM CHLORIDE 20 MEQ TABCR PO SCH ×2 (08:19→20:09)
[2020-01-19] MEDS: hydroCHLOROthiazide 25 MG TAB PO SCH (08:19)
[2020-01-19] MEDS: ATORVASTATIN 40 MG TAB PO SCH (08:19)
[2020-01-19] MEDS: HydrALAZINE 10 MG TAB PO SCH ×3 (08:20→20:10)
[2020-01-19] MEDS: cefTRIAXone SODIUM 2,000 MG in DEXTROSE 5% 50 ML IV SCH (08:42)
[2020-01-19 09:21] LABS: Partial Thromboplastin Ratio 2.1
[2020-01-19 09:22] LABS: Partial Thromboplastin Time 57.9 Seconds (21.0-31.0)
--- NOTE | 2020-01-19 14:37 | Hospitalist Progress Note ---
Date of Service January 19, 2020 Assessment & Plan (1) Pulmonary embolism, bilateral: 71-year-old female with history of hypertension, CKD stage III, obstructive sleep apnea on CPAP, presenting with progressive right rib pain and left elbow pain after a fall Acute bilateral pulmonary embolism Anticoagulated with systemic anticoagulation medications -Risk factors: Poor mobility secondary to generalized fatigue for the past few weeks, reports that her aunt and her son has history of blood clots -CT angiogram of the chest: 1. Segmental and subsegmental pulmonary emboli are present bilaterally as detailed above. 2. There is no acute posttraumatic intrathoracic abnormality. 3. There is no lobar consolidation, pleural effusion, or pneumothorax. 4. Moderate hiatal hernia. 5. Numerous tiny groundglass nodules are again seen scattered throughout both lungs. This has not significantly changed from 07/02/2019. Consider nonemergent pulmonology follow-up. 6. Cardiomegaly. 7. Additional findings as above. -Echocardiogram ordered - sinus bradycardia during procedure, LV normal size, mild concentric LVH, LV wall motion is normal, EF 65 to 70%, grade 1 diastolic dysfunction. Right ventricle normal in size and function. Doppler findings do not suggest pulmonary hypertension. -patient was has been on IV heparin with plans to bridge to therapeutic INR with coumadin (previous hospitalist discussed that patient may not be candidate for NOAC due to her high BMI of 35.1). target INR is between 2 to 3 -INR is 1.6 on 01/29/2020, continue IV heparin and coumadin -when discharged, patient will benefit from primary care follow up, pulmonary clinic follow up, and hematology followup for hypercoagulable work-up, and coumadin clinic -telemetry did show episodes of sinus bradycardia, and sinus arrhythmia but currently no sustained cardiac events, Patient may benefit from outpatient ZIO patch but re Left radial head nondisplaced fracture, status post fall -Appears to be mechanical fall, no prodrome -Left Elbow Xray: IMPRESSION: Nondisplaced radial head fracture as above with associated joint effusion. -Orthopedic service recommend to keep splint in place temporarily ( x1 week) for pain control. If pt still in hospital 01/20 please notify ortho so splint can be d/c'd, otherwise, f/u with Dr Rodriguez early next week, [phone] for appt. -continue Arm sling ordered and currently on analgesics Right knee pain -X-ray: 1. Mild soft tissue swelling and joint effusion with no acute bony abnormality identified. 2. Mild degenerative change and chondrocalcinosis as above. -no acute knee pains currently Hypertension -pain control -on amlodipine, HCTZ, hydralazine UTI -UA positive for bacteria, nitrite, speciated as Escherichia coli -was given 2 gram IV daily ceftriaxone from 01/15/2020 to 01/19/2020 CKD stage III -Stable Hypokalemia -initially was mildly low -serum potassium currently at goal Hypothyroidism -Continue usual levothyroxine Obstructive sleep apnea, with dependency on Continuous positive airway pressure (CPAP) at night -continue CPAP at night Activity PT/OT DVT prophylaxis Already on heparin drip with coumadin daily Disposition PT and OT evaluation -OT recommends home OT, per PT patient is safe to return home Usually lives at home with family Admission and Anticipated Discharge Date Admission Date: January 15, 2020 Subjective Patient seen and examined. Left arm remains in sling. she reports pain generally controlled. currently on IV heparin drip with oral warfarin anticoagulation. INR subtherapeutic for the pulmonary embolism. Patient on room air. no respiratory distress. no shortness of breath. no abdomen pain. no dizziness. no lightheadedness. no vomiting Review of Systems Review of Systems: All systems reviewed & are unremarkable except as noted in Subjective Physical Exam 2 Constitutional: WD/WN, vitals as above Eyes: PERRL, conjunctivae normal, anicteric sclerae EOM intact bilaterally ENMT: external ear and nose normal, oropharynx normal Neck: trachea midline, no thyromegaly Respiratory: normal respiratory effort, lungs clear to auscultation Cardiovascular: Rate/Rhythm: regular rate Gastrointestinal (Abdomen): normal bowel sounds, soft, nontender, no hepatosplenomegaly Musculoskeletal: Head/Neck/Chest: normocephalic (left arm in splint) Neurologic: PERRL, EOMI, accommodation nl, no face palsy, no dysarthria CN's II-XI intact bilaterally Psychiatric: A+Ox3, euthymic affect Results & Data Results & Data ([facility]) Vital Signs (Past 12 Hours) Vital Signs Temp Pulse Pulse Resp BP Pulse Ox 01/19/20 11:49 37.2 C 82 18 167/81 H 95 01/19/20 08:00 82 01/19/20 06:51 36.7 C 86 18 202/84 H 96 01/19/20 02:56 36.6 C 82 19 188/82 H 97
[2020-01-19] MEDS: WARFARIN SOD 5 MG TAB PO SCH (15:29)
[2020-01-19] MEDS: TRAMADOL HCL 50 MG TABLET PO PRN (15:45)
[2020-01-19] MEDS ORDERED: ONDANSETRON INJ 2 MG/ML 2 ML VIAL IV PRN (16:56)
[2020-01-19] MEDS: HEPARIN SODIUM/DEXTROSE 25,000 UNITS/500 ML BAG IV SCH (17:16)
[2020-01-19] MEDS: SENNA 8.6 MG TAB PO SCH (18:37)
[2020-01-19] MEDS: POLYETHYLENE (MIRALAX) 17 GM PACK PO SCH (18:37)
[2020-01-20] MEDS: LEVOTHYROXINE SODIUM 75 MCG TABLET PO SCH (06:02)
[2020-01-20] MEDS: SENNA 8.6 MG TAB PO SCH ×2 (07:28→08:18)
[2020-01-20] MEDS: POLYETHYLENE (MIRALAX) 17 GM PACK PO SCH ×2 (07:28→08:18)
[2020-01-20 07:41] LABS: Basophils # (auto) 0.05 K/uL (0-0.2); Basophils % (auto) 0.6 %; Eosinophils # (auto) 0.62 K/uL (0-0.5); Eosinophils % (auto) 7.7 %; Hematocrit (blood only) 38.9 % (37-47); Hemoglobin 13.1 g/dL (12.0-16.0); Immature Granulocytes # (auto) 0.02 K/uL (0.00-0.02); Immature Granulocytes % (auto) 0.2 %; Lymphocytes # (auto) 1.92 K/uL (1.2-3.4); Lymphocytes % (auto) 23.9 %; Mean Corpuscular Hemoglobin 31.6 pg (25-34); Mean Corpuscular Hgb Conc 33.7 g/dL (32-36); Mean Corpuscular Volume 93.7 fL (80-100); Mean Platelet Volume 10.8 fL (7.4-10.4); Monocytes # (auto) 1.09 K/uL (0.11-0.59); Monocytes % (auto) 13.6 %; Neutrophils # (auto) 4.34 K/uL (1.4-6.5); Platelet Count 247 K/uL (130-400); RDW Coefficient of Variation 14.4 % (11.5-14.5); RDW Standard Deviation 50.2 fL (36.4-46.3); Red Blood Count 4.15 M/uL (4.2-5.4); White Blood Count 8.04 K/uL (4.8-10.8)
[2020-01-20 07:52] LABS: INR 2.4 (0.9-1.1); Prothrombin Time 24.1 Seconds (9.0-12.0)
[2020-01-20 07:56] LABS: Partial Thromboplastin Time 110.8 Seconds (21.0-31.0)
[2020-01-20 08:05] LABS: BUN Creatinine Ratio 14.6 (10-20); Calcium 9.4 mg/dl (8.5-10.1); Creatinine Clr Calc Pharmacy 61.7 ml/min; Est GFR (Non-African American) 64.7; Magnesium 1.9 mg/dl (1.8-2.4); Potassium 3.8 mmol/L (3.5-5.1)
[2020-01-20] MEDS: AMLODIPINE BESYLATE 5 MG TAB PO SCH (08:17)
[2020-01-20] MEDS: hydroCHLOROthiazide 25 MG TAB PO SCH (08:17)
[2020-01-20] MEDS: ATORVASTATIN 40 MG TAB PO SCH (08:17)
[2020-01-20] MEDS: HydrALAZINE 10 MG TAB PO SCH ×3 (08:17→20:22)
[2020-01-20] MEDS: POTASSIUM CHLORIDE 20 MEQ TABCR PO SCH ×2 (08:17→20:21)
--- NOTE | 2020-01-20 09:09 | Hospitalist Progress Note ---
Date of Service January 20, 2020 Assessment & Plan (1) Pulmonary embolism, bilateral: 71-year-old female with history of hypertension, CKD stage III, obstructive sleep apnea on CPAP, presenting with progressive right rib pain and left elbow pain after a fall Acute bilateral pulmonary embolism Anticoagulated with systemic anticoagulation medications Sinus arrythmia -Risk factors: Poor mobility secondary to generalized fatigue for the past few weeks, reports that her aunt and her son has history of blood clots -CT angiogram of the chest: 1. Segmental and subsegmental pulmonary emboli are present bilaterally as detailed above. 2. There is no acute posttraumatic intrathoracic abnormality. 3. There is no lobar consolidation, pleural effusion, or pneumothorax. 4. Moderate hiatal hernia. 5. Numerous tiny groundglass nodules are again seen scattered throughout both lungs. This has not significantly changed from 07/02/2019. Consider nonemergent pulmonology follow-up. 6. Cardiomegaly. 7. Additional findings as above. -Echocardiogram ordered - sinus bradycardia during procedure, LV normal size, mild concentric LVH, LV wall motion is normal, EF 65 to 70%, grade 1 diastolic dysfunction. Right ventricle normal in size and function. Doppler findings do not suggest pulmonary hypertension. -patient was has been on IV heparin with plans to bridge to therapeutic INR with coumadin (previous hospitalist discussed that patient may not be candidate for NOAC due to her high BMI of 35.1). target INR is between 2 to 3 -INR is 1.6 on 01/29/2020, continue IV heparin and coumadin, INR is 2.4 on 01/30/2020wuth supratherapeutic PTT on heparin IV so will stop IV heparin and continue coumadin only (repeat PTT and INR at 3PM on 01/20/2020) -plan is to keep patient inpatient and check the INR on 01/21/2020 -when discharged, patient will benefit from primary care follow up, pulmonary clinic follow up, and hematology followup for hypercoagulable work-up, and coumadin clinic -telemetry did show episodes of sinus bradycardia, and sinus arrhythmia but currently no sustained cardiac events, Patient may benefit from outpatient ZIO patch Left radial head nondisplaced fracture, status post fall -Appears to be mechanical fall, no prodrome -Left Elbow Xray: IMPRESSION: Nondisplaced radial head fracture as above with associated joint effusion. -Orthopedic service recommend to keep splint in place temporarily ( x1 week) for pain control. If pt still in hospital 01/20 please notify ortho so splint can be d/c'd, otherwise, f/u with Dr Rodriguez early next week, [phone] for appt. -continue Arm sling ordered and currently on analgesics Right knee pain -X-ray: 1. Mild soft tissue swelling and joint effusion with no acute bony abnormality identified. 2. Mild degenerative change and chondrocalcinosis as above. -no acute knee pains currently Hypertension -pain control -on amlodipine, HCTZ (increase from 25 mg to 50 mg daily), hydralazine UTI -UA positive for bacteria, nitrite, speciated as Escherichia coli -was given 2 gram IV daily ceftriaxone from 01/15/2020 to 01/19/2020 CKD stage III -Stable Hypokalemia -initially was mildly low -serum potassium currently at goal Hypothyroidism -Continue usual levothyroxine Obstructive sleep apnea, with dependency on Continuous positive airway pressure (CPAP) at night -continue CPAP at night Activity PT/OT DVT prophylaxis Already on heparin drip with coumadin daily Disposition PT and OT evaluations have been following the patient while inpatient Admission and Anticipated Discharge Date Admission Date: January 15, 2020 Subjective patient sitting on bed and able to answer phone with her right arm. left arm remains in sling. she reports good sleep. no chest pain. no palpitations. no abdomen pain. no vomiting. no dizziness. no headache. telemetry showed some sinus arrythmia but heart rates generally stable Review of Systems Review of Systems: All systems reviewed & are unremarkable except as noted in Subjective Physical Exam Constitutional: WD/WN, vitals as above Eyes: PERRL, conjunctivae normal, anicteric sclerae EOM intact bilaterally ENMT: external ear and nose normal, oropharynx normal Neck: trachea midline, no thyromegaly Respiratory: normal respiratory effort, lungs clear to auscultation Cardiovascular: Rate/Rhythm: regular rate Gastrointestinal (Abdomen): normal bowel sounds, soft, nontender, no hepatosplenomegaly Musculoskeletal: Head/Neck/Chest: normocephalic (left arm in splint) Neurologic: PERRL, EOMI, accommodation nl, no face palsy, no dysarthria CN's II-XI intact bilaterally Psychiatric: A+Ox3, euthymic affect Results & Data Results & Data ([place]) Vital Signs (Past 12 Hours) Vital Signs Temp Pulse Pulse Pulse Resp BP Pulse Ox 01/20/20 08:06 37.0 C 81 19 166/73 H 95 01/20/20 04:48 164/84 H 01/20/20 03:19 36.6 C 58 L 18 181/67 H 96 01/20/20 00:02 66 01/19/20 23:58 37.1 C 61 19 160/72 H 99
[2020-01-20] MEDS ORDERED: MAGNESIUM SULFATE / D5W 1 GM/100 ML BAG IV ONE (09:30)
[2020-01-20] MEDS: MAGNESIUM OXIDE 400 MG TAB PO SCH (10:36)
[2020-01-20] MEDS: TRAMADOL HCL 50 MG TABLET PO PRN (10:38)
[2020-01-20 15:42] LABS: INR 2.2 (0.9-1.1); Partial Thromboplastin Ratio 1.4; Partial Thromboplastin Time 39.2 Seconds (21.0-31.0); Prothrombin Time 22.4 Seconds (9.0-12.0)
[2020-01-20] MEDS: WARFARIN SOD 5 MG TAB PO SCH (17:35)
[2020-01-20] MEDS: lisinopriL 5 MG TAB PO SCH (18:47)
[2020-01-21] MEDS: LEVOTHYROXINE SODIUM 75 MCG TABLET PO SCH (06:07)
[2020-01-21 06:24] LABS: Basophils # (auto) 0.06 K/uL (0-0.2); Basophils % (auto) 0.6 %; Eosinophils # (auto) 0.66 K/uL (0-0.5); Hematocrit (blood only) 38.6 % (37-47); Hemoglobin 13.1 g/dL (12.0-16.0); Immature Granulocytes # (auto) 0.02 K/uL (0.00-0.02); Immature Granulocytes % (auto) 0.2 %; Lymphocytes # (auto) 1.89 K/uL (1.2-3.4); Lymphocytes % (auto) 19.9 %; Mean Corpuscular Hemoglobin 32.3 pg (25-34); Mean Corpuscular Hgb Conc 33.9 g/dL (32-36); Mean Corpuscular Volume 95.1 fL (80-100); Mean Platelet Volume 10.3 fL (7.4-10.4); Monocytes # (auto) 1.23 K/uL (0.11-0.59); Neutrophils # (auto) 5.62 K/uL (1.4-6.5); Neutrophils % (auto) 59.3 %; Platelet Count 258 K/uL (130-400); RDW Coefficient of Variation 14.2 % (11.5-14.5); RDW Standard Deviation 49.6 fL (36.4-46.3); Red Blood Count 4.06 M/uL (4.2-5.4); White Blood Count 9.48 K/uL (4.8-10.8)
[2020-01-21 06:31] LABS: INR 2.6 (0.9-1.1); Partial Thromboplastin Ratio 1.4; Partial Thromboplastin Time 40.3 Seconds (21.0-31.0)
[2020-01-21 06:54] LABS: BUN Creatinine Ratio 17.7 (10-20); Calcium 9.2 mg/dl (8.5-10.1); Creatinine Clr Calc Pharmacy 59.7 ml/min; Est GFR (African American) 71.9; Est GFR (Non-African American) 62.1; Potassium 4.3 mmol/L (3.5-5.1)
[2020-01-21 08:03] LABS: INR 2.6 (0.9-1.1); Prothrombin Time 26.1 Seconds (9.0-12.0)
[2020-01-21] MEDS: HydrALAZINE 10 MG TAB PO SCH ×2 (08:33→13:36)
[2020-01-21] MEDS: AMLODIPINE BESYLATE 5 MG TAB PO SCH (08:33)
[2020-01-21] MEDS: MAGNESIUM OXIDE 400 MG TAB PO SCH (08:34)
[2020-01-21] MEDS: ATORVASTATIN 40 MG TAB PO SCH (08:34)
[2020-01-21] MEDS: lisinopriL 5 MG TAB PO SCH (08:34)
[2020-01-21] MEDS: POLYETHYLENE (MIRALAX) 17 GM PACK PO SCH (08:34)
[2020-01-21] MEDS: hydroCHLOROthiazide 25 MG TAB PO SCH (08:34)
[2020-01-21] MEDS: POTASSIUM CHLORIDE 20 MEQ TABCR PO SCH (08:34)
[2020-01-21] MEDS: SENNA 8.6 MG TAB PO SCH (08:35)
--- NOTE | 2020-01-21 11:34 | Orthopedic Progress Note ---
Date of Service January 21, 2020 Assessment & Plan (1) Fracture, radius, head: 79 yo female with bilat PEs stable with nondisplaced left radial fracture 1. Med management 2. DVT prophylaxis- heparin, coumadin, SCDs 3. PT/OT 4. D/C planning- ortho to sign off. Remove splint today. Continue sling. May do gentle ROM of the elbow to help prevent stiffness. F/U in [address] Rodriguez's office. Admission and Anticipated Discharge Date Admission Date: January 15, 2020 Subjective Left elbow has generally been feeling better. The pain is more controlled. The splint has been feeling heavy. No other LUE complaints. Physical Exam Constitutional: WD/WN, vitals as above Musculoskeletal: Extremities: + limited ROM of upper extremity Left (left elbow in sugartong splint. NV intact LUE) Neurologic: normal touch/pain/proprioception Psychiatric: A+Ox3, euthymic affect Speech: normal rate/rhythm/volume of speech Results & Data ([facility]) Vital Signs (Past 12 Hours) Vital Signs Temp Pulse Pulse Pulse Resp BP Pulse Ox 01/21/20 07:53 36.7 C 57 L 17 156/75 H 96 01/21/20 03:48 36.7 C 70 18 154/74 H 95 01/21/20 03:18 83 18 97 01/20/20 23:42 36.6 C 82 19 163/70 H 94 (1) Fracture, radius, head Encounter type: initial encounter Fracture alignment: nondisplaced Fracture type: closed Laterality: left Qualified Code(s): S52.125A - Nondisplaced fracture of head of left radius, initial encounter for closed fracture
--- NOTE | 2020-01-21 12:49 | Hospitalist Progress Note ---
Date of Service January 21, 2020 Assessment & Plan (1) Pulmonary embolism, bilateral: 71-year-old female with history of hypertension, CKD stage III, obstructive sleep apnea on CPAP, presenting with progressive right rib pain and left elbow pain after a fall Acute bilateral pulmonary embolism Anticoagulated with systemic anticoagulation medications Sinus arrythmia -Risk factors: Poor mobility secondary to generalized fatigue for the past few weeks, reports that her aunt and her son has history of blood clots -CT angiogram of the chest: 1. Segmental and subsegmental pulmonary emboli are present bilaterally as detailed above. 2. There is no acute posttraumatic intrathoracic abnormality. 3. There is no lobar consolidation, pleural effusion, or pneumothorax. 4. Moderate hiatal hernia. 5. Numerous tiny groundglass nodules are again seen scattered throughout both lungs. This has not significantly changed from 07/02/2019. Consider nonemergent pulmonology follow-up. 6. Cardiomegaly. 7. Additional findings as above. -Echocardiogram ordered - sinus bradycardia during procedure, LV normal size, mild concentric LVH, LV wall motion is normal, EF 65 to 70%, grade 1 diastolic dysfunction. Right ventricle normal in size and function. Doppler findings do not suggest pulmonary hypertension. -patient was has been on IV heparin with plans to bridge to therapeutic INR with coumadin (previous hospitalist discussed that patient may not be candidate for NOAC due to her high BMI of 35.1). target INR is between 2 to 3 -INR is 1.6 on 01/29/2020, continue IV heparin and coumadin, INR is 2.4 on 01/30/2020wuth supratherapeutic PTT on heparin IV so will stop IV heparin and continue coumadin only (repeat PTT and INR at 3PM on 01/20/2020) -plan is to keep patient inpatient and check the INR on 01/21/2020 -01/21/2020: INR 2.6, patient eager to go home, orthopedics removed th splint of left arm and left arm in sling, blood pressure controlled, patient eager to go home, discharge plans discussed at length (discharge home with case management having made referral to [facility] discharge medications of [facility] [address] [place] [address] : of warfarin 5 mg daily to anticoagulate for pulmonary embolism. will need to follow up with primary care doctor or coumadin clinic to maintain INR between 2 to 3. of amlodipine 10 mg daily, lisinopril 5 mg daily, hydralazine 10 mg three times day. continue home HCTZ. follow blood pressure and serum potassium and magnesium levels with primary care doctor of acetaminophen 325 mg every 6 hours as needed for fever or pain, of oxycodone 5 mg every 6 hours as needed for moderate to severe pain (16 tablets prescribed) of senna daily if using narcotic pain medications for bowel movements -when discharged, patient will benefit from primary care follow up for hypercoagulable workup (and if needed to hematology clinic as per primary care doctor), pulmonary clinic follow up, and -will need at least minimum of 3 months of systemic anticoagulation or longer depending on future outpatient workup -telemetry did show episodes of sinus bradycardia, and sinus arrhythmia but currently no sustained cardiac events, Patient may benefit from outpatient ZIO patch scheduled appointments 01/21/2020 6:20 PM Provider [facility], [facility] 01/26/2020 10:40 AM Provider Roberto Savage MD Department Internal Medicine [facility] 02/09/2020 11:00 AM Provider DONOVAN Barrios Department Pulmonary Medicine, [facility] 02/22/2020 10:40 AM Provider Kalli Grey PA-C Department Neurology [facility]) Left radial head nondisplaced fracture, status post fall -Appears to be mechanical fall, no prodrome -Left Elbow Xray: IMPRESSION: Nondisplaced radial head fracture as above with associated joint effusion. -managed inpatient with splint until 01/21/2020, outpatient follow up with orthopedics (Continue sling. May do gentle ROM of the elbow to help prevent stiffness. F/U in [address] Rodriguez's office. patient should ensure appointment with [facility] Address: [address] [place] [address], [place] [address] ) Right knee pain -X-ray: 1. Mild soft tissue swelling and joint effusion with no acute bony abnormality identified. 2. Mild degenerative change and chondrocalcinosis as above. -no acute knee pains currently Hypertension -pain control -on amlodipine, HCTZ (increase from 25 mg to 50 mg daily), hydralazine UTI -UA positive for bacteria, nitrite, speciated as Escherichia coli -was given 2 gram IV daily ceftriaxone from 01/15/2020 to 01/19/2020 CKD stage III -Stable Hypokalemia -initially was mildly low -serum potassium currently at goal Hypothyroidism -Continue usual levothyroxine Obstructive sleep apnea, with dependency on Continuous positive airway pressure (CPAP) at night -continue CPAP at night Admission and Anticipated Discharge Date Admission Date: January 15, 2020 Subjective INR 2.6, patient eager to go home, orthopedics removed th splint of left arm and left arm in sling, blood pressure controlled, patient eager to go home, discharge plans discussed at length no dizziness. no headache. no shortness of breath, breathing on room air, no chest pain, no palpitations Review of Systems Review of Systems: All systems reviewed & are unremarkable except as noted in Subjective Physical Exam Constitutional: WD/WN, vitals as above Eyes: PERRL, conjunctivae normal, anicteric sclerae EOM intact bilaterally ENMT: external ear and nose normal, oropharynx normal Neck: trachea midline, no thyromegaly Respiratory: normal respiratory effort, lungs clear to auscultation Cardiovascular: Rate/Rhythm: regular rate Gastrointestinal (Abdomen): normal bowel sounds, soft, nontender, no hepatosplenomegaly Musculoskeletal: Head/Neck/Chest: normocephalic (left arm in sling) Neurologic: PERRL, EOMI, accommodation nl, no face palsy, no dysarthria CN's II-XI intact bilaterally Psychiatric: A+Ox3, euthymic affect Results & Data Results & Data ([facility]) Vital Signs (Past 12 Hours) Vital Signs Temp Pulse Pulse Resp BP Pulse Ox 01/21/20 11:52 36.4 C L 82 16 147/82 H 97 01/21/20 07:53 36.7 C 57 L 17 156/75 H 96 01/21/20 03:48 36.7 C 70 18 154/74 H 95 01/21/20 03:18 83 18 97
--- NOTE | 2020-01-21 12:59 | Discharge Summary ---
Date of Service January 21, 2020 Admission HPI Per Admitting Provider 79-year-old female with history of hypertension, CKD stage 3, and other problems noted below presenting with Right-sided rib pain and left elbow pain after a fall yesterday. Patient states that for the past few weeks she has been feeling fatigued and was mostly in her recliner throughout the day. Yesterday while walking down the steps, descending from her porch, the patient felt weak on her lower legs and subsequently fell landing on her chest, on brick ground. She did not have any dizziness, lightheadedness, palpitations prior to the fall. Also did not lose consciousness. She managed to get up but subsequently developed progressive left elbow pain and right rib pain. Progression of left elbow pain because of to the ER. At the ER, the patient was receiving high blood pressure up to systolic 200s, but was saturating well on room air. CT angiogram of the chest confirmed acute bilateral pulmonary emboli. Left elbow x-ray also showed nondisplaced radial head fracture, with joint effusion. She was started with a heparin drip with bolus, and given morphine ER. She was also given additional hydralazine, which improved her blood pressure to the systolic 150s. On exam, the patient was seen in her room at the PCU. She was sitting up, oriented x3, alert, awake, answers all questions appropriately, in good spirits. She states that her pain is much better, now 5 out of 10. Has some minimal right rib pain, but denies having any shortness of breath, cough, sputum production, fevers or chills. No leg pain, does report minimal discomfort on her right knee. She reports no problems with ambulation. Principal Diagnosis Acute bilateral pulmonary embolism Anticoagulated with systemic anticoagulation medications Sinus arrhythmia Left radial head nondisplaced fracture, status post fall Hypertension Hypokalemia Urinary Tract infection CKD stage III Obstructive sleep apnea, with dependency on Continuous positive airway pressure (CPAP) at night Hypothyroidism Discharge Exam Constitutional WD/WN, vitals as above Eyes PERRL, conjunctivae normal, anicteric sclerae EOM intact bilaterally ENMT external ear and nose normal, oropharynx normal Neck trachea midline, no thyromegaly Respiratory normal respiratory effort, lungs clear to auscultation Cardiovascular Rate/Rhythm: regular rate Gastrointestinal (Abdomen) normal bowel sounds, soft, nontender, no hepatosplenomegaly Musculoskeletal Head/Neck/Chest: normocephalic (left arm in sling) Neurologic PERRL, EOMI, accommodation nl, no face palsy, no dysarthria CN's II-XI intact bilaterally Psychiatric A+Ox3, euthymic affect Discharge Data Allergies Allergy/AdvReac Type Severity Reaction Status Date / Time simvastatin [From Zocor] AdvReac Muscle Pain Verified 01/15/20 17:03 Consultations 01/15/20 19:30 ED Decision to Admit Stat 01/15/20 21:39 Consult Orthopedic Surgery Routine Ordered Studies 01/15/20 15:46 CT chest w con Stat CT head/brain wo con Stat Hospital Course (1) Pulmonary embolism, bilateral: 71-year-old female with history of hypertension, CKD stage III, obstructive sleep apnea on CPAP, presenting with progressive right rib pain and left elbow pain after a fall Acute bilateral pulmonary embolism Anticoagulated with systemic anticoagulation medications Sinus arrythmia -Risk factors: Poor mobility secondary to generalized fatigue for the past few weeks, reports that her aunt and her son has history of blood clots -CT angiogram of the chest: 1. Segmental and subsegmental pulmonary emboli are present bilaterally as detailed above. 2. There is no acute posttraumatic intrathoracic abnormality. 3. There is no lobar consolidation, pleural effusion, or pneumothorax. 4. Moderate hiatal hernia. 5. Numerous tiny groundglass nodules are again seen scattered throughout both lungs. This has not significantly changed from 07/02/2019. Consider nonemergent pulmonology follow-up. 6. Cardiomegaly. 7. Additional findings as above. -Echocardiogram ordered - sinus bradycardia during procedure, LV normal size, mild concentric LVH, LV wall motion is normal, EF 65 to 70%, grade 1 diastolic dysfunction. Right ventricle normal in size and function. Doppler findings do not suggest pulmonary hypertension. -patient was has been on IV heparin with plans to bridge to therapeutic INR with coumadin (previous hospitalist discussed that patient may not be candidate for NOAC due to her high BMI of 35.1). target INR is between 2 to 3 -INR is 1.6 on 01/29/2020, continue IV heparin and coumadin, INR is 2.4 on 01/30/2020wuth supratherapeutic PTT on heparin IV so will stop IV heparin and continue coumadin only (repeat PTT and INR at 3PM on 01/20/2020) -plan is to keep patient inpatient and check the INR on 01/21/2020 -01/21/2020: INR 2.6, patient eager to go home, orthopedics removed th splint of left arm and left arm in sling, blood pressure controlled, patient eager to go home, discharge plans discussed at length (discharge home with case management having made referral to [facility] discharge medications of [facility] [address] [place] [address] : of warfarin 5 mg daily to anticoagulate for pulmonary embolism. will need to follow up with primary care doctor or coumadin clinic to maintain INR between 2 to 3. of amlodipine 10 mg daily, lisinopril 5 mg daily, hydralazine 10 mg three times day. continue home HCTZ. follow blood pressure and serum potassium and magnesium levels with primary care doctor of acetaminophen 325 mg every 6 hours as needed for fever or pain, of oxycodone 5 mg every 6 hours as needed for moderate to severe pain (16 tablets prescribed) of senna daily if using narcotic pain medications for bowel movements -when discharged, patient will benefit from primary care follow up for hypercoagulable workup (and if needed to hematology clinic as per primary care doctor), pulmonary clinic follow up, and -will need at least minimum of 3 months of systemic anticoagulation or longer depending on future outpatient workup -telemetry did show episodes of sinus bradycardia, and sinus arrhythmia but currently no sustained cardiac events, Patient may benefit from outpatient ZIO patch scheduled appointments 01/21/2020 6:20 PM Provider [facility] Department Pharmacy, [facility] 01/26/2020 10:40 AM Provider Roberto Savage MD Department Internal Medicine [facility] 02/09/2020 11:00 AM Provider DONOVAN Barrios Department Pulmonary Medicine, [facility] 02/22/2020 10:40 AM Provider Kalli Grey PA-C Department Neurology [facility]) Left radial head nondisplaced fracture, status post fall -Appears to be mechanical fall, no prodrome -Left Elbow Xray: IMPRESSION: Nondisplaced radial head fracture as above with associated joint effusion. -managed inpatient with splint until 01/21/2020, outpatient follow up with orthopedics (Continue sling. May do gentle ROM of the elbow to help prevent stiffness. F/U in [address] Rodriguez's office. patient should ensure appointment with [facility] Address: [address] [place] [id number] ) Right knee pain -X-ray: 1. Mild soft tissue swelling and joint effusion with no acute bony abnormality identified. 2. Mild degenerative change and chondrocalcinosis as above. -no acute knee pains currently Hypertension -pain control -on amlodipine, HCTZ (increase from 25 mg to 50 mg daily), hydralazine UTI -UA positive for bacteria, nitrite, speciated as Escherichia coli -was given 2 gram IV daily ceftriaxone from 01/15/2020 to 01/19/2020 CKD stage III -Stable Hypokalemia -initially was mildly low -serum potassium currently at goal Hypothyroidism -Continue usual levothyroxine Obstructive sleep apnea, with dependency on Continuous positive airway pressure (CPAP) at night -continue CPAP at night Total Time Total Time Spent Total Time Spent (In Minutes): 40 minutes Total Time Includes: Examination of the Patient, Discharge Planning, Medication Reconciliation and Communication With Other Providers Discharge Plan Discharge Items Patient Disposition: Home - Home Health Services Reason For Visit: ACUTE PULMONARY EMBOLISM Discharge Diagnosis: Acute bilateral pulmonary embolism Anticoagulated with systemic anticoagulation medications Sinus arrhythmia Left radial head nondisplaced fracture, status post fall Hypertension Hypokalemia Urinary Tract infection CKD stage III Obstructive sleep apnea, with dependency on Continuous positive airway pressure (CPAP) at night Hypothyroidism Condition on Discharge: Good Activity: Per Instructions section Non-emergency contact: Primary Care Provider Call non-emergency contact if: you have any medication questions Follow-up/Referrals: Ramón Rodriguez DO [Surgeon] - (Call to make an appointment for 3 weeks from 01.21.2020.) Мария Littlejohn DO [Primary Care Provider] - 01/26/20 10:40 am (01/26/2020 10:40 AM Provider Roberto Savage MD Department Internal Medicine [facility] ) Diet: Heart Healthy [facility] Attending Provider Instructions: discharge home with case management having made referral to [facility] home health discharge medications of [facility] [place] [address] : of warfarin 5 mg daily to anticoagulate for pulmonary embolism. will need to follow up with primary care doctor or coumadin clinic to maintain INR between 2 to 3. of amlodipine 10 mg daily, lisinopril 5 mg daily, hydralazine 10 mg three times day. continue home HCTZ. follow blood pressure and serum potassium and magnesium levels with primary care doctor of acetaminophen 325 mg every 6 hours as needed for fever or pain, of oxycodone 5 mg every 6 hours as needed for moderate to severe pain (16 tablets prescribed) of senna daily if using narcotic pain medications for bowel movements -when discharged, patient will benefit from primary care follow up for hypercoagulable workup (and if needed to hematology clinic as per primary care doctor), pulmonary clinic follow up, and -will need at least minimum of 3 months of systemic anticoagulation or longer depending on future outpatient workup -telemetry did show episodes of sinus bradycardia, and sinus arrhythmia but currently no sustained cardiac events, Patient may benefit from outpatient ZIO patch scheduled appointments 01/21/2020 6:20 PM Provider [facility] Department Pharmacy, [facility] 01/26/2020 10:40 AM Provider Roberto Savage MD Department Internal Medicine [facility] 02/09/2020 11:00 AM Provider DONOVAN Barrios Department Pulmonary Medicine, [facility] 02/22/2020 10:40 AM Provider Kalli Grey PA-C Department Neurology [facility] [employer] Provider Instructions: Continue sling. May do gentle ROM of the elbow to help prevent stiffness. F/U in [address] Rodriguez's office. patient should ensure appointment with [facility] Address: [address] [place] [address], [place] [address] Pending Studies at Discharge: No Stand-Alone Forms: My [employer]), Smoking Cessation Medications and DC Order Prescriptions: New sennosides [Senokot] 8.6 mg Tablet 8.6 mg PO QAM 30 Days Qty: 30 RF: 0 acetaminophen 325 mg Tablet 325 mg PO Q6H PRN (Reason: fever or pain) 5 Days Qty: 20 RF: 0 magnesium oxide 400 mg (241.3 mg magnesium) Tablet 400 mg PO QAM 10 Days Qty: 10 RF: 0 hydralazine 10 mg Tablet 10 mg PO TID 30 Days Qty: 90 RF: 0 amlodipine [Norvasc] 5 mg Tablet 10 mg PO QAM 30 Days Qty: 60 RF: 0 lisinopril [Zestril] 5 mg Tablet 5 mg PO QAM 30 Days Qty: 30 RF: 0 warfarin 5 mg Tablet 5 mg PO DAILY@1600 30 Days Qty: 30 RF: 0 oxycodone 5 mg Tablet 5 mg PO Q6H PRN (Reason: moderate to severe pain) 4 Days Qty: 16 RF: 0 Continued atorvastatin 40 mg Tablet 40 mg PO DAILY RF: 0 levothyroxine 75 mcg Tablet 75 mcg PO DAILY RF: 0 hydrochlorothiazide 25 mg Tablet 25 mg PO DAILY RF: 0 cholecalciferol (vitamin D3) [Vitamin D3] 25 mcg (1,000 unit) Tablet 25 mcg PO DAILY RF: 0 omega-3 fatty acids-fish oil [Fish Oil] 360-1,200 mg Capsule 1 cap PO DAILY RF: 0 potassium chloride 20 mEq Tablet Extended Release 20 meq PO BID RF: 0 Discontinued acetaminophen [Tylenol Extra Strength] 500 mg Tablet 500 mg PO Q6H PRN (Reason: Fever Or Pain) RF: 0 Discharge Orders: Discharge Order (Routine); Ordered 01/21/20 Ordered By: Jefry Andrews Admission Data Admit Date/Time: 01/15/20 19:56 Attending Provider: Jefry Andrews Admit Provider: Alex Avilez Primary Care Provider: Мария Littlejohn Other Providers: Alex Avilez ; Ramón Rodriguez Other Interventions: Discharge Summary Assessment (RN) Last Done: 01/21/20 12:46
== END 2020-01-21 14:16 | disposition home health service (06) | DRG 176 ==
LOC: ED 15:28 → 2S 19:56 → SUATTDRO 19:56 → 2S 21:04

== ENCOUNTER 2023-05-16 19:43 | Inpatient (IN) ==
[2023-05-16 20:16] LABS: Basophils # (auto) 0.07 K/uL (0.00-0.20); Basophils % (auto) 0.5 %; Eosinophils # (auto) 0.08 K/uL (0.00-0.50); Eosinophils % (auto) 0.5 %; Hematocrit (blood only) 40.3 % (37.0-47.0); Hemoglobin 13.5 g/dl (12.0-16.0); Immature Granulocytes # (auto) 0.08 K/uL (0.01-0.20); Immature Granulocytes % (auto) 0.5 %; Lymphocytes # (auto) 1.02 K/uL (1.20-3.40); Lymphocytes % (auto) 6.6 %; Mean Corpuscular Hemoglobin 30.8 pg (25.0-34.0); Mean Corpuscular Hgb Conc 33.5 g/dL (32.0-36.0); Mean Platelet Volume 10.7 fL (9.4-12.4); Monocytes # (auto) 1.29 K/uL (0.11-0.59); Monocytes % (auto) 8.3 %; Neutrophils # (auto) 12.95 K/uL (1.40-6.50); Neutrophils % (auto) 83.6 %; Platelet Count 199 K/uL (130-400); RDW Coefficient of Variation 14.3 % (11.5-14.5); RDW Standard Deviation 47.9 fL (36.4-46.3); Red Blood Count 4.38 M/uL (4.20-5.40); White Blood Count 15.49 K/ul (4.8-10.8)
--- NOTE | 2023-05-16 20:41 | CT Scan Report ---
Exam(s): CT HEAD Without Contrast EXAM: CT Head Without Intravenous Contrast CLINICAL HISTORY: Reason for exam: fall from standing. TECHNIQUE: Axial computed tomography images of the head/brain without intravenous contrast. CTDI is 37.51 mGy and DLP is 624.41 mGy-cm. Automated exposure control was utilized for the study. A dose lowering technique was utilized adhering to the principles of ALARA. COMPARISON: January 15, 2020 FINDINGS: No acute intracranial hemorrhage. Calcified mass along the posterior aspect of the RIGHT parietal bone age is 11 x 12 mm. This has increased in size when compared to January 15, 2020. Brain MRI recommended for further evaluation. Large forehead scalp hematoma. The territorial rosenberg-white matter differentiation is maintained throughout. Age-related cerebral volume loss. Periventricular and subcortical white matter hypoattenuation, consistent with chronic microangiopathy. The visualized orbits appear grossly unremarkable. The calvarium is intact. The visualized paranasal sinuses and mastoid air cells are grossly clear. IMPRESSION: No acute intracranial hemorrhage. Calcified mass along the posterior aspect of the RIGHT parietal bone age is 11 x 12 mm. This has increased in size when compared to January 15, 2020. Brain MRI recommended for further evaluation. Electronically signed by: Thony Leigh MD 05/16/23 20:40 PM
--- NOTE | 2023-05-16 20:41 | CT Scan Report ---
Exam(s): CT C SPINE EXAM: CT Cervical Spine Without Intravenous Contrast CLINICAL HISTORY: Reason for exam: fall from standing. TECHNIQUE: Axial computed tomography images of the cervical spine without intravenous contrast. CTDI is 26.77 mGy and DLP is 525.59 mGy-cm. Automated exposure control was utilized for the study. A dose lowering technique was utilized adhering to the principles of ALARA. COMPARISON: No relevant prior studies available. FINDINGS: The vertebral body heights are maintained. The craniocervical junction is intact. The atlanto-dens interval is maintained. The dens is intact. There is no spondylolisthesis. Multilevel cervical spondylosis and degenerative disc disease. Straightening of the cervical lordosis. The unenhanced neck soft tissues are grossly unremarkable. The visualized lung apices are grossly clear. IMPRESSION: No acute fracture or subluxation of the cervical spine. Electronically signed by: Thony Leigh MD 05/16/23 20:40 PM
[2023-05-16 20:42] LABS: Albumin Globulin Ratio 1.5 (0.9-2); Albumin Level 4.4 gm/dl (3.4-5.0); BUN Creatinine Ratio 28.9 (10-20); Bilirubin,Total 0.7 mg/dl (0.2-1.0); Calcium 9.5 mg/dl (8.6-10.3); Creatinine Clr Calc Pharmacy 52.2 ml/min; Est GFR (Non-African American) 59.5 ml/min; Potassium 3.6 mmol/L (3.5-5.1); Total Protein 7.4 gm/dl (6.0-8.3)
[2023-05-16 20:49] LABS: Troponin I High Sensitivity 9.8 pg/ml (0-14)
--- NOTE | 2023-05-16 21:40 | Emergency Department Note ---
Impression & Plan Fall from standing, Acute pain of right knee, Effusion of right knee, Facial hematoma, Ambulatory dysfunction ED Provider Note HISTORY OF PRESENT ILLNESS: Patient is an 83-year-old female presenting with facial pain and right knee pain. Patient reports that she was walking to her car in the garage when she suddenly fell face first onto concrete. Patient denies loss of consciousness. She denies any lightheadedness or dizziness or chest pain or shortness of breath prior to the fall. Reports she thinks she lost her footing. She is on Coumadin for history of PEs. She reports that she fell early this morning. She stayed at home for most the day and then went out to run some errands but did not feel right while driving, so she states she took a nap. On awakening from her nap, she noticed that her face was black and blue and her right knee was hurting. Denies any abdominal pain. Tetanus is up-to-date ROS: as above PHYSICAL EXAM: Constitutional: Patient appears in no acute distress. HENT: Head: Normocephalic. Large hematoma to the center of the forehead. Patient has ecchymosis to the bilateral periorbital region. Eyes: EOMI, PERRL Ears: TM intact without erythema or bulging. No hemotympanum. Mouth/Throat: Mucous membranes moist. Neck: Trachea midline. Neck supple. No midline cervical spine tenderness to palpation. Cardiovascular: RRR, No murmurs, rubs or gallops. Intact distal pulses. Pulmonary/Chest: No respiratory distress. Breath sounds clear and equal bi laterally. No wheezes or rales. No chest wall tenderness to palpation. Abdominal: Abdomen soft, no tenderness, rebound or guarding. Musculoskeletal: Slight ecchymosis and abrasion to the right knee. Noted to have ecchymosis to the left medial knee as well. Skin: Warm and dry. No rash, erythema, pallor or cyanosis Psychiatric: Appropriate mood and affect for situation. Neurological: Alert and keenly responsive. CN II-XII grossly intact, moving all extremities equally and fully. MDM: - Vitals signs showed hypertension - History obtained via patient. Patient presents with right knee pain and facial pain. Patient suffered a fall from standing earlier today while she was walking in her garage. She fell face first onto concrete. Denies loss of consciousness. She is on Coumadin for history of PEs. Tetanus is up-to-date. Reportedly has been having worsening knee pain throughout the day. Denies any changes in vision. Denies any numbness or tingling or weakness in her extremities. - Chronic conditions affecting care: HTN; HLD; PE - Differential diagnoses include, but are not limited to: Intracranial hemorrhage; stroke; cervical spine fracture; ACS; knee fracture - Order placed for continuous cardiac monitoring. At this time, monitor showed rate of 71 bpm with normal sinus rhythm, per my interpretation. - External medical records reviewed. EMS run sheet reviewed. Patient was vitally stable in route. No medications were given prehospital. - EKG reviewed by myself showed normal sinus rhythm. Rate 81 bpm. QTc 483. No acute ischemic changes - Laboratory workup interpreted by myself showed leukocytosis (WBC 15.49); stable hemoglobin; stable electrolytes; normal troponin - Xray right knee showed prepatellar soft tissue swelling and joint effusion. - CT head wo contrast negative for acute intracranial pathology. Noted to have calcified mass on the posterior aspect of the right parietal bone. - CT cervical spine without contrast negative for acute fracture. - The patient's cervical collar was removed today. The patient's imaging was reviewed and the CT C-Spine was negative for acute injury. The patient was alert and oriented prior to her exam. On exam she was non-tender to palpation midline and had full ROM without any neurologic deficits. The patient tolerated this procedure well. - Attempted to get the patient up to ambulate for discharge home, but she is unable to ambulate or bear weight on her right knee. She does live independently with her and family expresses concern about her going home. Will admit to the hospitalist service for potential PT/OT evaluation. - Patient's BPs remained significantly elevated in ER. Given 10 mg IV hydralazine. - Discussion was had with social work about patient's case and need for admission - Hospitalist consulted for admission - Patient admitted to [facility] Hospitalist service for further evaluation and management. ASSESSMENT AND PLAN: Diagnosis: Fall from standing; right knee pain; right knee effusion; facial hematoma; ambulatory dysfunction Plan: admit Past Med/Surg History Medical History (Updated 05/16/23 @ 23:32 by Waleska Stinson MD) Fracture, radius, head Hyperlipidemia Hypertension Pulmonary emboli Dx 01/2020 Sleep apnea Surgical History H/O: hysterectomy History of tubal ligation Family History Mother Colorectal cancer Grandfather (Maternal) Heart disease Social History Smoking Status: Never smoker Second Hand Exposure: No; Do You Dip or Chew Tobacco: No; Hx Alcohol Use: No Hx Substance Use: No Preferred Language: Somali Communication Ability: Effective Relay Repairer Required: No Beliefs That Will Affect Care: None Current Living Situation: Spouse Feels Safe at Home: Yes Assistive Devices: CPAP Allergies Allergies Allergy/AdvReac Type Severity Reaction Status Date / Time simvastatin [From Zocor] AdvReac Muscle Pain Verified 03/27/20 08:16 Home Meds Home Medications Medication Instructions Recorded Confirmed atorvastatin 40 mg tablet 40 mg PO DAILY 01/15/20 03/06/20 cholecalciferol (vitamin D3) 25 25 mcg PO DAILY 01/15/20 03/06/20 mcg (1,000 unit) tablet (Vitamin D3) hydrochlorothiazide 25 mg tablet 25 mg PO DAILY 01/15/20 03/06/20 levothyroxine 75 mcg tablet 75 mcg PO DAILY 01/15/20 03/06/20 omega-3 fatty acids-fish oil 360 1 cap PO DAILY 01/15/20 03/06/20 mg-1,200 mg capsule (Fish Oil) potassium chloride 20 mEq 20 meq PO BID 01/15/20 03/06/20 tablet,extended release citalopram 10 mg tablet (Celexa) 10 mg PO DAILY 03/27/20 03/27/20 warfarin 3 mg tablet 3 mg PO DAILY 03/27/20 03/27/20 Results & Data (ED) Vital Signs Vital Signs - 24 hr 05/16/23 19:52 05/16/23 19:54 05/16/23 19:53 Temperature 37.9 C H Temperature Source Oral Pulse Rate 81 Pulse Rate [Apical] Pulse Rate from SpO2 Sensor Pulse Rhythm [Apical] Pulse Strength [Apical] Respiratory Rate 16 Respiratory Effort / Characteristics Respiratory Depth Respiratory Pattern Blood Pressure 227/102 H 227/102 H Blood Pressure [Right Arm] Blood Pressure Mean 143 145 Blood Pressure Mean [Right Arm] Blood Pressure Position [Right Arm] Pulse Oximetry 97 Oxygen Delivery Method Room Air Sepsis Recent Fever Within 48 Hours No Sepsis New/Unexplained Change in Mental Status No Sepsis Action Taken by Nursing No Action Required 05/16/23 19:54 05/16/23 20:00 05/16/23 20:30 Temperature Temperature Source Pulse Rate 79 74 81 Pulse Rate [Apical] Pulse Rate from SpO2 Sensor 79 74 80 Pulse Rhythm [Apical] Pulse Strength [Apical] Respiratory Rate 16 18 14 Respiratory Effort / Characteristics Respiratory Depth Respiratory Pattern Blood Pressure 199/94 H 223/108 H Blood Pressure [Right Arm] Blood Pressure Mean 129 146 Blood Pressure Mean [Right Arm] Blood Pressure Position [Right Arm] Pulse Oximetry 98 97 99 Oxygen Delivery Method Sepsis Recent Fever Within 48 Hours Sepsis New/Unexplained Change in Mental Status Sepsis Action Taken by Nursing 05/16/23 21:00 05/16/23 22:47 05/16/23 22:42 Temperature Temperature Source Pulse Rate 81 62 Pulse Rate [Apical] 60 Pulse Rate from SpO2 Sensor 81 67 Pulse Rhythm [Apical] Pulse Strength [Apical] Respiratory Rate 17 18 12 Respiratory Effort / Characteristics Non-Labored Spontaneous Respiratory Depth Normal Respiratory Pattern Blood Pressure 222/104 H Blood Pressure [Right Arm] 222/108 H Blood Pressure Mean 143 Blood Pressure Mean [Right Arm] 146 Blood Pressure Position [Right Arm] Pulse Oximetry 96 97 97 Oxygen Delivery Method Room Air Sepsis Recent Fever Within 48 Hours Sepsis New/Unexplained Change in Mental Status Sepsis Action Taken by Nursing 05/16/23 22:45 05/16/23 23:24 Temperature Temperature Source Pulse Rate 87 Pulse Rate [Apical] 71 Pulse Rate from SpO2 Sensor 86 Pulse Rhythm [Apical] Regular Pulse Strength [Apical] Normal Respiratory Rate 17 16 Respiratory Effort / Characteristics Non-Labored Spontaneous Respiratory Depth Normal Respiratory Pattern Regular Blood Pressure 222/108 H Blood Pressure [Right Arm] 200/72 H Blood Pressure Mean 146 Blood Pressure Mean [Right Arm] 114 Blood Pressure Position [Right Arm] Semi-fowlers Pulse Oximetry 96 98 Oxygen Delivery Method Room Air Sepsis Recent Fever Within 48 Hours Sepsis New/Unexplained Change in Mental Status Sepsis Action Taken by Nursing Laboratory Data 05/16/23 19:54 05/16/23 19:54 Lab Results 05/16/23 05/16/23 Range/Units 19:54 19:54 WBC 15.49 H (4.8-10.8) K/ul RBC 4.38 (4.20-5.40) M/uL Hgb 13.5 (12.0-16.0) g/dl Hct 40.3 (37.0-47.0) % MCV 92.0 (80.0-100.0) fL MCH 30.8 (25.0-34.0) pg MCHC 33.5 (32.0-36.0) g/dL RDW Std Deviation 47.9 H (36.4-46.3) fL RDW Coeff of Anyi 14.3 (11.5-14.5) % Plt Count 199 (130-400) K/uL MPV 10.7 (9.4-12.4) fL Immature Gran % (Auto) 0.5 % Neut % (Auto) 83.6 % Lymph % (Auto) 6.6 % [place] % (Auto) 8.3 % Eos % (Auto) 0.5 % Baso % (Auto) 0.5 % Neut # (Auto) 12.95 H (1.40-6.50) K/uL Lymph # (Auto) 1.02 L (1.20-3.40) K/uL [place] # (Auto) 1.29 H (0.11-0.59) K/uL Eos # (Auto) 0.08 (0.00-0.50) K/uL Baso # (Auto) 0.07 (0.00-0.20) K/uL Immature Gran # (Auto) 0.08 (0.01-0.20) K/uL Sodium 138 (136-145) mmol/L Potassium 3.6 (3.5-5.1) mmol/L Chloride 102 (98-107) mmol/L Carbon Dioxide 26 (21-32) mmol/L Anion Gap 10 (3-11) BUN 26 H (6-23) mg/dl Creatinine 0.90 (0.6-1.2) mg/dl Est Cr Clr Drug Dosing 52.2 ml/min Est GFR ( Amer) 69.0 ml/min Est GFR (Non-Af Amer) 59.5 ml/min BUN/Creatinine Ratio 28.9 H (10-20) Glucose 110 H (70-99(Fasting)) mg/dl Calcium 9.5 (8.6-10.3) mg/dl Total Bilirubin 0.7 (0.2-1.0) mg/dl AST 33 (13-39) U/L ALT 33 (7-52) U/L Alkaline Phosphatase 89 (34-104) U/L Troponin I High Sens 9.8 (0-14) pg/ml Total Protein 7.4 (6.0-8.3) gm/dl Albumin 4.4 (3.4-5.0) gm/dl Globulin 3.0 (2.5-4.0) gm/dl Albumin/Globulin Ratio 1.5 (0.9-2) Administered Medications Hydralazine HCl (Hydralazine Hcl 20 Mg/Ml Vial) 10 mg IV NOW STA Stop: 05/16/23 23:04 Last Admin: 05/16/23 23:25 Dose: 10 mg Documented By: RADHA Imaging Data Radiologist's Impression: Cervical Spine CT 05/16/23 20:03 Exam(s): CT C SPINE EXAM: CT Cervical Spine Without Intravenous Contrast CLINICAL HISTORY: Reason for exam: fall from standing. TECHNIQUE: Axial computed tomography images of the cervical spine without intravenous contrast. CTDI is 26.77 mGy and DLP is 525.59 mGy-cm. Automated exposure control was utilized for the study. A dose lowering technique was utilized adhering to the principles of ALARA. COMPARISON: No relevant prior studies available. FINDINGS: The vertebral body heights are maintained. The craniocervical junction is intact. The atlanto-dens interval is maintained. The dens is intact. There is no spondylolisthesis. Multilevel cervical spondylosis and degenerative disc disease. Straightening of the cervical lordosis. The unenhanced neck soft tissues are grossly unremarkable. The visualized lung apices are grossly clear. IMPRESSION: No acute fracture or subluxation of the cervical spine. Electronically signed by: Thony Leigh MD 05/16/23 20:[address] 05/16/23 20:03 Exam(s): CT HEAD Without Contrast EXAM: CT Head Without Intravenous Contrast CLINICAL HISTORY: Reason for exam: fall from standing. TECHNIQUE: Axial computed tomography images of the head/brain without intravenous contrast. CTDI is 37.51 mGy and DLP is 624.41 mGy-cm. Automated exposure control was utilized for the study. A dose lowering technique was utilized adhering to the principles of ALARA. COMPARISON: January 15, 2020 FINDINGS: No acute intracranial hemorrhage. Calcified mass along the posterior aspect of the RIGHT parietal bone age is 11 x 12 mm. This has increased in size when compared to January 15, 2020. Brain MRI recommended for further evaluation. Large forehead scalp hematoma. The territorial rosenberg-white matter differentiation is maintained throughout. Age-related cerebral volume loss. Periventricular and subcortical white matter hypoattenuation, consistent with chronic microangiopathy. The visualized orbits appear grossly unremarkable. The calvarium is intact. The visualized paranasal sinuses and mastoid air cells are grossly clear. IMPRESSION: No acute intracranial hemorrhage. Calcified mass along the posterior aspect of the RIGHT parietal bone age is 11 x 12 mm. This has increased in size when compared to January 15, 2020. Brain MRI recommended for further evaluation. Electronically signed by: Thony Leigh MD 05/16/23 20:40 PM Knee X-Ray 05/16/23 21:31 RIGHT KNEE 2 VIEWS CLINICAL HISTORY: Right knee injury. FINDINGS: AP and crosstable lateral views of the right knee are compared to study dated 01/15/2020. The skeletal structures are osteopenic. No fracture is seen. There is moderate tricompartmental degenerative joint space narrowing. A calcified fabella is observed. Chondrocalcinosis is suggested in the lateral compartment. There is a joint effusion. Prepatellar soft tissue swelling is noted. IMPRESSION: Prepatellar soft tissue swelling and joint effusion with no fracture identified. Electronically signed by: Miguel Story M.D. 05/16/2023 10:02 PM Discharge Plan Visit Data Chief Complaint: Fall Stated Complaint: Fall, R Knee Pain ED Provider: Waleska Stinson Discharge Problem: Fall from standing, Acute pain of right knee, Effusion of right knee, Facial hematoma, Ambulatory dysfunction Forms Stand Alone Forms: [facility] Prescriptions Prescriptions: No Action warfarin 3 mg tablet 3 mg PO DAILY citalopram [Celexa] 10 mg tablet 10 mg PO DAILY atorvastatin 40 mg Tablet 40 mg PO DAILY levothyroxine 75 mcg Tablet 75 mcg PO DAILY hydrochlorothiazide 25 mg Tablet 25 mg PO DAILY cholecalciferol (vitamin D3) [Vitamin D3] 25 mcg (1,000 unit) Tablet 25 mcg PO DAILY omega-3 fatty acids-fish oil [Fish Oil] 360-1,200 mg Capsule 1 cap PO DAILY potassium chloride 20 mEq Tablet Extended Release 20 meq PO BID Referrals Referrals: Мария Littlejohn DO [Primary Care Provider] -
--- NOTE | 2023-05-16 22:05 | XRay Report ---
RIGHT KNEE 2 VIEWS CLINICAL HISTORY: Right knee injury. FINDINGS: AP and crosstable lateral views of the right knee are compared to study dated 01/15/2020. The skeletal structures are osteopenic. No fracture is seen. There is moderate tricompartmental degenera tive joint space narrowing. A calcified fabella is observed. Chondrocalcinosis is suggested in the la teral compartment. There is a joint effusion. Prepatellar soft tissue swelling is noted. IMPRESSION: Prepatellar soft tissue swelling and joint effusion with no fracture identified. Electronically signed by: Miguel Story M.D. 05/16/2023 10:02 PM
[2023-05-16] MEDS ORDERED: hydrALAZINE HCL 20 MG/ML VIAL IV STA (23:03)
[2023-05-16] MEDS ORDERED: ACETAMINOPHEN 325 MG TAB PO STA (23:34)
[2023-05-16 23:53] LABS: Magnesium 1.3 mg/dl (1.7-2.4)
[2023-05-17 00:05] LABS: Appearance Urine Clear (Clear); Bacteria Urine Automated 2+ (Negative); Bilirubin Urine Negative (Negative); Blood Urine Negative (Negative); Color Urine Yellow; Glucose Urine UA Negative (Negative); Ketones Urine Negative (Negative); Leukocyte Esterase Urine 2+ (Negative); Nitrite Urine Positive (Negative); Protein Urine Negative (Negative); Specific Gravity Urine 1.015 (1.000-1.030); Urobilinogen Urine Negative (Negative); WBC Urine Automated >30 /hpf (0-5); pH Urine 7.5 (4.5-7.5)
[2023-05-17 00:34] LABS: INR 2.3 (0.9-1.1); Prothrombin Time 23.8 Seconds (9.0-12.0)
[2023-05-17] MEDS ORDERED: CEFEPIME 2,000 MG/20 ML VIAL IV STA (00:43)
--- NOTE | 2023-05-17 01:01 | History & Physical Report ---
Date of Service May 17, 2023 Assessment & Plan (1) Severe sepsis: Plan: SIRS plus lactic acidosis Secondary to complicated UTI Hypertensive urgency secondary to traumatic head injury, right knee effusion hyperlipidemia, on statin Rx hx PE on Coumadin, INR therapeutic, hemoglobin currently stable despite facial ecchymosis CON on CPAP hypothyroidism, euthyroid as of recent outpatient TSH hx tremors Hyperglycemia rule out DM Possible ambulatory dysfunction Medical telemetry CS, Cefepime Follow lactic acid response to IVF (Guideline recommended 30 cc/kg IBW fluid bolus administration over 3 hours currently precluded by uncontrolled BP.) Appropriate to hold Coumadin for now given facial ecchymosis. Orthopedics consult Re: Traumatic right knee effusion (Patient known to Dr. Rodriguez.) Check hemoglobin A1c PT OT eval DVT prophylaxis. SCDs while Coumadin on hold if INR less than 2 Full code Text document was generated using [employer] voice recognition software. It may contain grammatical or spelling errors. Kindly contact undersigned for clarification of any documentation item in question. History of Present Illness Chief Complaint: Fall, head trauma Primary Care Provider: Мария Littlejohn DO History obtained from patient and records. Medical history significant for hypertension, hyperlipidemia, PE on Coumadin, CON on CPAP, hypothyroidism, anxiety/mood disorder, tremors. Last confinement March 2020 for bilateral PE. Patient discharged on Coumad[place] [facility] [place] recommended long-term anticoagulant treatment given spontaneous thrombotic circumstances as per documentation. Patient noted dysuria symptoms this morning without abdominal pain, fever, ch ills. Patient was walking towards her car when she suddenly fell face forward into concrete. No LOC, no chest pain, no SOB. Achy facial pain from bump on the face and black eye. Transient bilateral blurred vision, no otorrhea/rhinorrhea. Right knee pain following fall. SBP to 220s upon arrival at the ER. 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 Allergies Allergy/AdvReac Type Severity Reaction Status Date / Time Influenza Virus Vaccines Allergy COULD NOT Verified 05/17/23 00:47 MOVE, FELT TERRIBLE simvastatin [From Zocor] AdvReac Muscle Pain Verified 05/16/23 23:51 Home Medications Medication Instructions Recorded Confirmed Type atorvastatin 40 mg tablet 40 mg PO DAILY 01/15/20 05/16/23 History hydrochlorothiazide 25 mg tablet 25 mg PO DAILY 01/15/20 05/16/23 History levothyroxine 75 mcg tablet 75 mcg PO DAILY 01/15/20 05/16/23 History potassium chloride 20 mEq 20 meq PO BID 01/15/20 05/16/23 History tablet,extended release warfarin 3 mg tablet 3 mg PO .6DAYS A WEEK 03/27/20 05/16/23 History acetaminophen 325 mg tablet 650 mg PO PC PRN Pain 05/16/23 05/16/23 History (Tylenol) cholecalciferol (vitamin D3) 50 50 mcg PO DAILY 05/16/23 05/16/23 History mcg (2,000 unit) tablet (Vitamin D3) citalopram 20 mg tablet 20 mg PO DAILY 05/16/23 05/16/23 History hydrocortisone acetate 25 mg 25 mg SC HS PRN .. 05/16/23 05/16/23 History rectal suppository (Anusol-HC) vit C 250 mg-vit E 90 mg-zinc 40 1 tab PO AMHS 05/16/23 05/16/23 History mg-copper 1 wb-pnipdk-ylneip capsule (PreserVision AREDS-2) warfarin 3 mg tablet (Jantoven) 6 mg PO .QMON 05/16/23 05/16/23 History Past Med/Surg History Medical History (Updated 05/17/23 @ 05:05 by Nakul Devi MD) Fracture, radius, head Hyperlipidemia Hypertension Pulmonary emboli Dx 01/2020 Sleep apnea Surgical History H/O: hysterectomy History of tubal ligation Family History Mother Colorectal cancer Grandfather (Maternal) Heart disease Social History Smoking Status: Never smoker Second Hand Exposure: No; Do You Dip or Chew Tobacco: No; Hx Alcohol Use: No Hx Substance Use: No Preferred Language: Sinhala Communication Ability: Effective Machine Set Up Technician Required: No Beliefs That Will Affect Care: None Current Living Situation: Spouse Feels Safe at Home: Yes Safety Concerns: Feels Safe At This Time Assistive Devices: Walker Review of Systems Review of Systems: As per HPI, all other systems reviewed and negative Physical Exam Physical Exam: GENERAL: Comfortable, pleasant, obese, no respiratory distress SKIN: Normal color, warm HEENT: Frontal hematoma, periorbital ecchymosis, pink palpebral conjunctivae, no ptosis, dry buccal mucosa NECK : Supple, short neck, no tenderness CHEST : CTA, no tenderness HEART : RRR, no obvious murmurs ABDOMEN: Some distention, nontender EXTREMITIES : Minimal LE swelling, tender right knee swelling NEUROLOGIC : Coherent, no gaze limitation, no facial asymmetry, intention tremors right upper extremity, gait and stance not assessed Results & Data Results & Data Vital Signs (Past 12 Hours) Vital Signs Temp Pulse Pulse Resp BP BP Pulse Ox 05/16/23 23:52 74 05/16/23 23:24 71 16 200/72 H 98 05/16/23 22:45 87 17 222/108 H 96 05/16/23 22:42 62 12 97 05/16/23 22:47 60 18 222/108 H 97 05/16/23 21:00 81 17 222/104 H 96 05/16/23 20:30 81 14 223/108 H 99 05/16/23 20:00 74 18 199/94 H 97 05/16/23 19:54 79 16 98 05/16/23 19:53 227/102 H 05/16/23 19:54 81 05/16/23 19:52 37.9 C H 16 227/102 H 97 O2 Del Method 05/16/23 23:52 05/16/23 23:24 Room Air 05/16/23 22:45 05/16/23 22:42 05/16/23 22:47 Room Air 05/16/23 21:00 05/16/23 20:30 05/16/23 20:00 05/16/23 19:54 05/16/23 19:53 05/16/23 19:54 05/16/23 19:52 Room Air Laboratory Results Laboratory Results WBC 15.49 K/ul (4.8-10.8) H 05/16/23 19:54 RBC 4.38 M/uL (4.20-5.40) 05/16/23 19:54 Hgb 13.5 g/dl (12.0-16.0) 05/16/23 19:54 Hct 40.3 % (37.0-47.0) 05/16/23 19:54 MCV 92.0 fL (80.0-100.0) 05/16/23 19:54 MCH 30.8 pg (25.0-34.0) 05/16/23 19:54 MCHC 33.5 g/dL (32.0-36.0) 05/16/23 19:54 RDW Std Deviation 47.9 fL (36.4-46.3) H 05/16/23 19:54 RDW Coeff of Anyi 14.3 % (11.5-14.5) 05/16/23 19:54 Plt Count 199 K/uL (130-400) 05/16/23 19:54 MPV 10.7 fL (9.4-12.4) 05/16/23 19:54 Immature Gran % (Auto) 0.5 % 05/16/23 19:54 Neut % (Auto) 83.6 % 05/16/23 19:54 Lymph % (Auto) 6.6 % 05/16/23 19:54 [place] % (Auto) 8.3 % 05/16/23 19:54 Eos % (Auto) 0.5 % 05/16/23 19:54 Baso % (Auto) 0.5 % 05/16/23 19:54 Neut # (Auto) 12.95 K/uL (1.40-6.50) H 05/16/23 19:54 Lymph # (Auto) 1.02 K/uL (1.20-3.40) L 05/16/23 19:54 Highland # (Auto) 1.29 K/uL (0.11-0.59) H 05/16/23 19:54 Eos # (Auto) 0.08 K/uL (0.00-0.50) 05/16/23 19:54 Baso # (Auto) 0.07 K/uL (0.00-0.20) 05/16/23 19:54 Immature Gran # (Auto) 0.08 K/uL (0.01-0.20) 05/16/23 19:54 PT 23.8 Seconds (9.0-12.0) H 05/16/23 23:53 INR 2.3 (0.9-1.1) H 05/16/23 23:53 Sodium 138 mmol/L (136-145) 05/16/23 19:54 Potassium 3.6 mmol/L (3.5-5.1) 05/16/23 19:54 Chloride 102 mmol/L (98-107) 05/16/23 19:54 Carbon Dioxide 26 mmol/L (21-32) 05/16/23 19:54 Anion Gap 10 (3-11) 05/16/23 19:54 BUN 26 mg/dl (6-23) H 05/16/23 19:54 Creatinine 0.90 mg/dl (0.6-1.2) 05/16/23 19:54 Est Cr Clr Drug Dosing 52.2 ml/min 05/16/23 19:54 Est GFR ( Amer) 69.0 ml/min 05/16/23 19:54 Est GFR (Non-Af Amer) 59.5 ml/min 05/16/23 19:54 BUN/Creatinine Ratio 28.9 (10-20) H 05/16/23 19:54 Glucose 110 mg/dl (70-99(Fasting)) H 05/16/23 19:54 Calcium 9.5 mg/dl (8.6-10.3) 05/16/23 19:54 Magnesium 1.3 mg/dl (1.7-2.4) L 05/16/23 19:54 Total Bilirubin 0.7 mg/dl (0.2-1.0) 05/16/23 19:54 AST 33 U/L (13-39) 05/16/23 19:54 ALT 33 U/L (7-52) 05/16/23 19:54 Alkaline Phosphatase 89 U/L (34-104) 05/16/23 19:54 Troponin I High Sens 9.8 pg/ml (0-14) 05/16/23 19:54 Total Protein 7.4 gm/dl (6.0-8.3) 05/16/23 19:54 Albumin 4.4 gm/dl (3.4-5.0) 05/16/23 19:54 Globulin 3.0 gm/dl (2.5-4.0) 05/16/23 19:54 Albumin/Globulin Ratio 1.5 (0.9-2) 05/16/23 19:54 Procalcitonin 0.10 ng/ml (0-0.5) 05/16/23 19:54 Urine Color Yellow 05/16/23 23:38 Urine Appearance Clear (Clear) 05/16/23 23:38 Urine pH 7.5 (4.5-7.5) 05/16/23 23:38 Ur Specific Hyndman 1.015 (1.000-1.030) 05/16/23 23:38 Urine Protein Negative (Negative) 05/16/23 23:38 Urine Glucose (UA) Negative (Negative) 05/16/23 23:38 Urine Ketones Negative (Negative) 05/16/23 23: Urine Blood Negative (Negative) 05/16/23 23: Urine Nitrite Positive (Negative) A 05/16/23 23: Urine Bilirubin Negative (Negative) 05/16/23 23: Urine Urobilinogen Negative (Negative) 05/16/23 23:38 Ur Leukocyte Esterase 2+ (Negative) H 05/16/23 23:38 Urine WBC (Auto) >30 /hpf (0-5) H 05/16/23 23:38 Urine RBC (Auto) 5-10 /hpf (0-4) H 05/16/23 23: U Hyaline Cast (Auto) 1-5 /lpf (0-5) 05/16/23 23:38 U Epithel Cells (Auto) 5-10 /lpf (0-5) H 05/16/23 23:38 Urine Bacteria (Auto) 2+ (Negative) H 05/16/23 23:[address] 05/16/23 20:03 Exam(s): CT C SPINE EXAM: CT Cervical Spine Without Intravenous Contrast CLINICAL HISTORY: Reason for exam: fall from standing. TECHNIQUE: Axial computed tomography images of the cervical spine without intravenous contrast. CTDI is 26.77 mGy and DLP is 525.59 mGy-cm. Automated exposure control was utilized for the study. A dose lowering technique was utilized adhering to the principles of ALARA. COMPARISON: No relevant prior studies available. FINDINGS: The vertebral body heights are maintained. The craniocervical junction is intact. The atlanto-dens interval is maintained. The dens is intact. There is no spondylolisthesis. Multilevel cervical spondylosis and degenerative disc disease. Straightening of the cervical lordosis. The unenhanced neck soft tissues are grossly unremarkable. The visualized lung apices are grossly clear. IMPRESSION: No acute fracture or subluxation of the cervical spine. Electronically signed by: Thony Leigh MD 05/16/23 20:[address] 05/16/23 20:03 Exam(s): CT HEAD Without Contrast EXAM: CT Head Without Intravenous Contrast CLINICAL HISTORY: Reason for exam: fall from standing. TECHNIQUE: Axial computed tomography images of the head/brain without intravenous contrast. CTDI is 37.51 mGy and DLP is 624.41 mGy-cm. Automated exposure control was utilized for the study. A dose lowering technique was utilized adhering to the principles of ALARA. COMPARISON: January 15, 2020 FINDINGS: No acute intracranial hemorrhage. Calcified mass along the posterior aspect of the RIGHT parietal bone age is 11 x 12 mm. This has increased in size when compared to January 15, 2020. Brain MRI recommended for further evaluation. Large forehead scalp hematoma. The territorial rosenberg-white matter differentiation is maintained throughout. Age-related cerebral volume loss. Periventricular and subcortical white matter hypoattenuation, consistent with chronic microangiopathy. The visualized orbits appear grossly unremarkable. The calvarium is intact. The visualized paranasal sinuses and mastoid air cells are grossly clear. IMPRESSION: No acute intracranial hemorrhage. Calcified mass along the posterior aspect of the RIGHT parietal bone age is 11 x 12 mm. This has increased in size when compared to January 15, 2020. Brain MRI recommended for further evaluation. Electronically signed by: Thony Leigh MD 05/16/23 20:40 PM Knee X-Ray 05/16/23 21:31 RIGHT KNEE 2 VIEWS CLINICAL HISTORY: Right knee injury. FINDINGS: AP and crosstable lateral views of the right knee are compared to study dated 01/15/2020. The skeletal structures are osteopenic. No fracture is seen. There is moderate tricompartmental degenerative joint space narrowing. A calcified fabella is observed. Chondrocalcinosis is suggested in the lateral compartment. There is a joint effusion. Prepatellar soft tissue swelling is noted. IMPRESSION: Prepatellar soft tissue swelling and joint effusion with no fracture identified. Electronically signed by: Miguel Story M.D. 05/16/2023 10:02 PM Diagnostic Findings EKG as per my interpretation :Rate 80, NSR, normal axis, septal infarct, T wave abnormalities inferior leads
[2023-05-17] MEDS ORDERED: PROMETHAZINE HCL 6.25 MG in SODIUM CHLORIDE 0.9% 50 ML IV PRN (01:06)
[2023-05-17] MEDS ORDERED: LACTATED RINGER'S 1,000 ML IV ONE ×3 (01:07→12:00)
[2023-05-17] MEDS: MAGNESIUM SULFATE / D5W 1 GM/100 ML BAG IV SCH ×3 (01:41→06:05)
[2023-05-17 01:49] LABS: Hematocrit (blood only) 37.3 % (37.0-47.0); Hemoglobin 12.7 g/dl (12.0-16.0)
[2023-05-17 04:51] LABS: Basophils # (auto) 0.07 K/uL (0.00-0.20); Basophils % (auto) 0.5 %; Eosinophils # (auto) 0.12 K/uL (0.00-0.50); Eosinophils % (auto) 0.9 %; Hematocrit (blood only) 35.4 % (37.0-47.0); Immature Granulocytes # (auto) 0.05 K/uL (0.01-0.20); Immature Granulocytes % (auto) 0.4 %; Lymphocytes # (auto) 1.82 K/uL (1.20-3.40); Lymphocytes % (auto) 13.7 %; Mean Corpuscular Hemoglobin 30.5 pg (25.0-34.0); Mean Corpuscular Hgb Conc 33.9 g/dL (32.0-36.0); Mean Corpuscular Volume 90.1 fL (80.0-100.0); Mean Platelet Volume 10.7 fL (9.4-12.4); Monocytes # (auto) 1.75 K/uL (0.11-0.59); Monocytes % (auto) 13.2 %; Neutrophils # (auto) 9.47 K/uL (1.40-6.50); Neutrophils % (auto) 71.3 %; Platelet Count 203 K/uL (130-400); RDW Coefficient of Variation 14.3 % (11.5-14.5); RDW Standard Deviation 47.3 fL (36.4-46.3); Red Blood Count 3.93 M/uL (4.20-5.40); White Blood Count 13.28 K/ul (4.8-10.8)
[2023-05-17 04:59] LABS: Calcium 8.8 mg/dl (8.6-10.3); Creatinine Clr Calc Pharmacy 50.6 ml/min; Est GFR (African American) 66.3 ml/min; Est GFR (Non-African American) 57.2 ml/min; Potassium 3.5 mmol/L (3.5-5.1)
[2023-05-17 05:16] LABS: INR 2.2 (0.9-1.1); Prothrombin Time 23.1 Seconds (9.0-12.0)
[2023-05-17] MEDS: LEVOTHYROXINE SODIUM 75 MCG TABLET PO SCH (06:12)
--- NOTE | 2023-05-17 07:55 | XRay Report ---
SINGLE VIEW CHEST CLINICAL HISTORY: Fever FINDINGS: An AP, portable, upright chest radiograph is compared to study dated 03/06/2020. The examina tion is degraded by portable technique and apical lordotic positioning. The heart is enlarged noting atherosclerotic calcification of the thoracic aorta. The pulmonary vasculature is noncongested. Chron ic interstitial thickening since the previous. The lungs and pleural spaces are clear. No pneumothora x is seen. The skeletal structures are osteopenic. The bony thorax is grossly intact. IMPRESSION: Cardiomegaly with no active disease in the chest. ACT 112: Negative or not required by law. Electronically signed by: Miguel Story M.D. 05/17/2023 7:53 AM
[2023-05-17] MEDS: ATORVASTATIN 40 MG TAB PO SCH (08:51)
[2023-05-17] MEDS: CITALOPRAM 20 MG TAB PO SCH (08:51)
[2023-05-17 09:14] LABS: Estimated Average Glucose 123 mg/dl; Hemoglobin A1C 5.9 % (4.5-5.6)
[2023-05-17] MEDS ORDERED: CEFEPIME 2,000 MG in SYRINGE 0 ML IV SCH (10:00)
[2023-05-17] MEDS: CHOLECALCIFEROL 1,000 UNITS 25 MCG TAB PO SCH (10:37)
[2023-05-17] MEDS: hydroCHLOROthiazide 25 MG TAB PO SCH (10:37)
--- NOTE | 2023-05-17 12:15 | Electrocardiogram Report ---
Test Reason : Blood Pressure : / mmHG Vent. Rate : 081 BPM Atrial Rate : 081 BPM P-R Int : 194 ms QRS Dur : 086 ms QT Int : 416 ms P-R-T Axes : 056 042 022 degrees QTc Int : 483 ms Normal sinus rhythm Normal ECG When compared with ECG of 06-MAR-2020 12:02, QT has lengthened Confirmed by Eleuterio Yeager ([id number]) on 05/17/2023 12:15:14 PM Referred By: REFERRED SELF Confirmed By:Eleuterio Yeager
--- NOTE | 2023-05-17 12:54 | Communication Note ---
Date of Service: May 17, 2023 Patient was seen and examined at bedside. 83-year-old lady with PMH of HTN, HLD, PE on Coumadin, CON on CPAP, hypothyroidism, anxiety/mood disorder, tremors presented to the ED 05/16 with complaints of fall. Patient reports she was walking towards her car when she suddenly fell face forward into concrete. Patient denies any loss of consciousness/seizure activity/nausea/diaphoresis/palpitations/chest pain/shortness of breath. She also reports dysuria that started from the morning of arrival. She is being managed for the following: Fall, likely mechanical Possible ambulatory dysfunction Right knee pain, secondary to fall Patient came in with fall, denies any symptoms prior/during/after fall. Admitting CT C-spine and CXR with no acute findings. Admitting CT head with no acute fracture, does show increasing calcified mass along the posterior aspect of the right parietal bone. MRI is recommended. The patient has been made aware, MRI sent. Admitting right knee x-ray with prepatellar soft tissue swelling and joint effusion with no fracture. Fall precaution, PT/OT, likely will need rehab. Pain management, nausea control, orthopedic consultawait recommendation Bilateral periorbital ecchymosis; and CT showing large forehead scalp hematoma --> Coumadin on hold, monitor H&H, monitor lesions clinically. f/u on MRI brain. Complicated UTI: Patient presenting with dysuria/frequency symptoms, started on cefepime 05/17, continue, follow urine culture. Does not meet SIRS criteria, no sepsis POA. Increase blood lactic acid level: Present on admission, likely secondary to infection. Status post IV fluid. Resolved. Hypertensive urgency: Likely secondary to traumatic injury and pain. Continue with home blood pressure medication. Use as needed blood pressure medications. Continue telemetry. Other chronic medical conditions: Continue with/resume home meds as and when able. hyperlipidemia, on statin Rx hx PE on Coumadin, regarding coumadin see above. 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 DVT prophylaxis: SCDs, Coumadin on hold Full code Disposition: PT/OT, CM to assist with DC planning. On exam, patient lying in bed, on room air, bilateral periorbital ecchymosis noted, forehead hematoma noted, heart/lung/abdomen examination fairly WNL. For detailed information on the patient, refer to today's H&P note.
[2023-05-17] MEDS ORDERED: GADOBUTROL 30ML VIAL IV ONE (14:52)
--- NOTE | 2023-05-17 15:42 | Magnetic Resonance Report ---
MRI OF THE BRAIN COMBO CLINICAL HISTORY: Fall. Extra-axial lesion. COMPARISON STUDY: CT of the brain dated 05/16/2023. TECHNIQUE: MRI of the brain was performed utilizing various T1 and T2-weighted sequences in the axial , sagittal, and coronal planes. Contrast-enhanced sequences were acquired following the administratio n of 9 cc of Gadavist. The examination is degraded by motion artifact. FINDINGS: Brain parenchyma: There is age-related involutional change noting advanced subcortical and periventri cular microangiopathic disease. There is no hemorrhage or mass effect. There is no restricted diffusi on typical for acute ischemia. There is a 1.7 cm ovoid and homogeneously enhancing extra-axial mass a long the posterior parafalcine right parietal convexity. This is best seen on axial postcontrast imag e #15. No additional enhancing enhancing mass lesion is identified on the postcontrast images. Mccoy-w aashish matter differentiation is preserved. No extra-axial fluid collection is seen. The cerebellar ton sils are normal in configuration. Ventricles, sulci, and cisterns: Prominent secondary to involutional change. Pituitary and sella: Unremarkable. Intracranial vasculature: Normal flow voids are maintained at the skull base. Orbits: The bony orbits are grossly intact. Orbital contents are normal in appearance noting bilatera l ocular lens implants. Sinuses and mastoids: There is mild mucosal thickening within the ethmoid sinuses. The remaining para nasal sinuses and the mastoid air cells are clear. Calvarium: Unremarkable. Soft tissues: There is a frontal scalp hematoma. Cervical cord: Partially visualized cervical spinal cord is normal in morphology and signal intensity . IMPRESSION: 1. No acute intracranial abnormality. 2. An extra-axial lesion along the right posterior parietal convexity is typical for a meningioma. Th ere is no associated mass effect. 3. No additional enhancing lesion is identified. 4. Frontal scalp hematoma. ACT 112: Negative or not required by law. Electronically signed by: Miguel Story M.D. 05/17/2023 3:40 PM
[2023-05-17] MEDS: ACETAMINOPHEN 325 MG TAB PO PRN (17:04)
[2023-05-17] MEDS: hydrALAZINE HCL 20 MG/ML VIAL IV PRN (17:05)
[2023-05-17] MEDS: POTASSIUM CHLORIDE CRTAB 20 MEQ TABCR PO SCH (19:57)
[2023-05-17] MEDS: oxyCODONE HCL IR 5 MG TAB (IMMEDIATE RELEASE) PO PRN (19:58)
[2023-05-17] MEDS: CEFEPIME 2,000 MG in SYRINGE 0 ML IV SCH (20:07)
[2023-05-18] MEDS: ACETAMINOPHEN 325 MG TAB PO PRN ×2 (03:18→22:57)
[2023-05-18] MEDS: oxyCODONE HCL IR 5 MG TAB (IMMEDIATE RELEASE) PO PRN (04:05)
[2023-05-18] MEDS: LEVOTHYROXINE SODIUM 75 MCG TABLET PO SCH (06:27)
[2023-05-18 07:54] LABS: Hematocrit (blood only) 36.7 % (37.0-47.0); Hemoglobin 12.4 g/dl (12.0-16.0); Mean Corpuscular Hemoglobin 30.6 pg (25.0-34.0); Mean Corpuscular Hgb Conc 33.8 g/dL (32.0-36.0); Mean Corpuscular Volume 90.6 fL (80.0-100.0); Mean Platelet Volume 10.6 fL (9.4-12.4); Platelet Count 186 K/uL (130-400); RDW Coefficient of Variation 14.4 % (11.5-14.5); RDW Standard Deviation 47.5 fL (36.4-46.3); Red Blood Count 4.05 M/uL (4.20-5.40); White Blood Count 11.48 K/ul (4.8-10.8)
[2023-05-18 08:19] LABS: Calcium 8.8 mg/dl (8.6-10.3); Creatinine Clr Calc Pharmacy 58.8 ml/min; Est GFR (African American) 79.6 ml/min; Est GFR (Non-African American) 68.7 ml/min; Magnesium 1.9 mg/dl (1.7-2.4); Phosphorus 4.1 mg/dl (2.5-4.9); Potassium 3.2 mmol/L (3.5-5.1)
[2023-05-18 08:24] LABS: INR 1.7 (0.9-1.1); Prothrombin Time 17.9 Seconds (9.0-12.0)
[2023-05-18] MEDS: ATORVASTATIN 40 MG TAB PO SCH (08:33)
[2023-05-18] MEDS: CITALOPRAM 20 MG TAB PO SCH (08:33)
[2023-05-18] MEDS: POTASSIUM CHLORIDE CRTAB 20 MEQ TABCR PO SCH ×2 (08:33→20:13)
[2023-05-18] MEDS: CHOLECALCIFEROL 1,000 UNITS 25 MCG TAB PO SCH (08:33)
[2023-05-18] MEDS: hydroCHLOROthiazide 25 MG TAB PO SCH (08:33)
[2023-05-18] MEDS: CEFEPIME 2,000 MG in SYRINGE 0 ML IV SCH ×2 (08:33→20:49)
[2023-05-18] MEDS ORDERED: POTASSIUM CHLORIDE CRTAB 20 MEQ TABCR PO STA ×2 (11:57→23:20)
[2023-05-18] MEDS: MAGNESIUM SULFATE / D5W 1 GM/100 ML BAG IV SCH ×2 (12:22→13:45)
--- NOTE | 2023-05-18 15:42 | Hospitalist Progress Note ---
Date of Service May 18, 2023 Assessment & Plan (1) Fall from standing: Plan 83-year-old lady with PMH of HTN, HLD, PE on Coumadin, CON on CPAP, hypothyroidism, anxiety/mood disorder, tremors presented to the ED 05/16 with complaints of fall. Patient reports she was walking towards her car when she suddenly fell face forward into concrete. Patient denies any loss of consciousness/seizure activity/nausea/diaphoresis/palpitations/chest pain/shortness of breath.She also states she confirmed there was nothing that she might have tripped on and fell. She also reports dysuria that started from the morning of arrival. She is being managed for the following: Fall, likely mechanical vs cardiogenic Possible ambulatory dysfunction Right knee pain, secondary to fall Patient came in with fall, denies any symptoms prior/during/after fall. Admitting CT C-spine and CXR with no acute findings. Admitting CT head with no acute fracture, does show increasing calcified mass along the posterior aspect of the right parietal bone. MRI is recommended. The patient has been made aware, MRI sent. Admitting right knee x-ray with prepatellar soft tissue swelling and joint effusion with no fracture. Fall precaution, PT/OT, likely will need rehab. Pain management, nausea control, orthopedic consultawait recommendation Bilateral periorbital ecchymosis; and CT showing large forehead scalp hematoma -->Coumadin on hold, monitor H&H, monitor lesions clinically. f/u on MRI brain - Meningioma, no mass effect -- Pt is made aware. 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 Had episodes of near syncope 05/18 AM (see subjective 05/18). EKG reviewed. C/w tele. Cardiology consult. Ortho vitals was neg 05/18 AM. Monitor and replete electrolytes. Complicated UTI:Patient presenting with dysuria/frequency symptoms, started on cefepime 05/17, continue, follow urine culture. Does not meet SIRS criteria, no sepsis POA. Increase blood lactic acid level:Present on admission, likely secondary to infection. Status post IV fluid. Resolved. Hypertensive urgency:Likely secondary to traumatic injury and pain. Continue with home blood pressure medication. Use as needed blood pressure medications. Continue telemetry. BP fairly better. Other chronic medical conditions:Continue with/resume home meds as and when able. hyperlipidemia, on statin Rx hx PE on Coumadin, regarding coumadin see above. CON on CPAP hypothyroidism, euthyroid as of recent outpatient TSH hx tremors Hyperglycemia rule out DM - a1c 5.9, prediabetic,will counselprior to DC. DVT prophylaxis: SCDs, Coumadin on hold Full code Disposition: PT/OT, CM to assist with DC planning. Admission and Anticipated Discharge Date Admission Date: May 17, 2023 Subjective Patient was seen and examined at bedside. Patient was lying in bed, on room air, NAD, resting comfortably. Patient reports no new acute event overnight, reports improving dysuria/frequency of urination. Patient reports facial pain under control. Per RN, patient near passed out during moving bowels in the morning. Also later in the morning around 11:25 AM, patient reported she " zoned out" like the one she felt prior to falling [employer]. Tele revealed sinus pause of 3.6 sec around this time. Electrolytes replaced. Physical Exam Physical Exam: GENERAL: Alert and oriented x3. NAD, on RA. HEENT: No pallor, no icterus. Pupils equal, round and reactive to light. Oral mucosa moist. bilateral periorbital ecchymosis noted, forehead hematoma noted NECK: No JVD, no neck masses. HEART: S1 and S2 heard. Regular rate and rhythm. No murmur, no gallop. RESPIRATORY SYSTEM: Normal AP diameter. No accessory muscle use. No wheezing, no crackles. ABDOMEN: Soft, bowel sounds present, nontender, no distention. CENTRAL NERVOUS SYSTEM: No facial droop. Speech is clear. Obeys simple commands. Moves extremities. EXTREMITIES: No edema, no erythema seen. Results & Data Results & Data Vital Signs (Past 12 Hours) Vital Signs Temp Pulse Pulse Resp BP BP Pulse Ox 05/18/23 08:55 76 16 151/74 H 94 05/18/23 11:39 36.7 C 74 18 150/75 H 95 05/18/23 09:24 76 16 151/74 H 94 05/18/23 08:00 66 05/18/23 07:43 36.6 C 76 18 164/78 H 95 O2 Del Method 05/18/23 08:55 Room Air 05/18/23 11:39 Room Air 05/18/23 09:24 Room Air 05/18/23 08:00 05/18/23 07:43 Room Air
--- NOTE | 2023-05-18 15:53 | Cardiology Consultation ---
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 Last episode occurred however with patient in bed with only leg movement. Patient does describe past multiple not well explained falls Plan keep n.p.o. after mid Continue observe on telemetry Avoid AV node blocking medication Hold warfarin to further defined Echocardiogram ordered Cardiology will follow History of Present Illness Reason for Consultation: Marked sinus bradycardia, sick sinus syndrome versus vagal event Attending Physician: Lorna Arteaga MD History of Present Illness Patient is an 83-year-old female admitted after a fall at home. Patient notes was walking across her garage and fell quickly to her face. No precipitating cause. Initial laboratory studies suggestive of acute infection/sepsis. This morning on telemetry had transient marked sinus bradycardia possible vagal event although second event occurred at rest without acute issue. Underlying medical problems and issues are listed as below but include morbid obesity, obstructive sleep apnea and past pulmonary embolus in 2019 found after a fall. Patient notes multiple falls question syncopal events in the past Currently without acute complaint Underlying infectious process being treated Patient chronically anticoagulated with warfarin but currently on hold due to facial contusion Allergies Allergy/AdvReac Type Severity Reaction Status Date / Time Influenza Virus Vaccines Allergy COULD NOT Verified 05/17/23 00:47 MOVE, FELT TERRIBLE simvastatin [From Zocor] AdvReac Muscle Pain Verified 05/16/23 23:51 Home Medications Medication Instructions Recorded Confirmed Type atorvastatin 40 mg tablet 40 mg PO DAILY 01/15/20 05/16/23 History hydrochlorothiazide 25 mg tablet 25 mg PO DAILY 01/15/20 05/16/23 History levothyroxine 75 mcg tablet 75 mcg PO DAILY 01/15/20 05/16/23 History potassium chloride 20 mEq 20 meq PO BID 01/15/20 05/16/23 History tablet,extended release warfarin 3 mg tablet 3 mg PO .6DAYS A WEEK 03/27/20 05/16/23 History acetaminophen 325 mg tablet 650 mg PO PC PRN Pain 05/16/23 05/16/23 History (Tylenol) cholecalciferol (vitamin D3) 50 50 mcg PO DAILY 05/16/23 05/16/23 History mcg (2,000 unit) tablet (Vitamin D3) citalopram 20 mg tablet 20 mg PO DAILY 05/16/23 05/16/23 History hydrocortisone acetate 25 mg 25 mg SD HS PRN .. 05/16/23 05/16/23 History rectal suppository (Anusol-HC) vit C 250 mg-vit E 90 mg-zinc 40 1 tab PO AMHS 05/16/23 05/16/23 History mg-copper 1 [id number] capsule (PreserVision AREDS-2) warfarin 3 mg tablet (Jantoven) 6 mg PO .QMON 05/16/23 05/16/23 History Patient History Medical History (Updated 05/18/23 @ 15:52 by Crow Hwang MD) Fracture, radius, head Hyperlipidemia Hypertension Pulmonary emboli Dx 01/2020 Sleep apnea Surgical History H/O: hysterectomy History of tubal ligation Family History Mother Colorectal cancer Grandfather (Maternal) Heart disease Social History Smoking Status: Never smoker Second Hand Exposure: No; Do You Dip or Chew Tobacco: No; Hx Alcohol Use: No Hx Substance Use: No Preferred Language: Latvian Communication Ability: Effective 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: No Beliefs That Will Affect Care: None Current Living Situation: Spouse Feels Safe at Home: Yes Safety Concerns: Feels Safe At This Time Assistive Devices: Walker Review of Systems Review of Systems: All systems reviewed & are unremarkable except as noted in HPI & below Physical Exam Constitutional: + obese; no acute distress Eyes: Bilateral periorbital ecchymoses ENMT: external ear and nose normal, oropharynx normal Neck: trachea midline, no thyromegaly Respiratory: Auscultation: + diminished lung sounds Cardiovascular: Rate/Rhythm: regular rate and regular rhythm Vessels: no JVD Extremities: no edema Gastrointestinal (Abdomen): normal bowel sounds, soft, nontender, no hepatosplenomegaly Musculoskeletal: Right knee pain with movement Results & Data Vital Signs (Past 12 Hours) Vital Signs Temp Pulse Pulse Resp BP BP Pulse Ox 05/18/23 08:55 76 16 151/74 H 94 05/18/23 11:39 36.7 C 74 18 150/75 H 95 05/18/23 09:24 76 16 151/74 H 94 05/18/23 08:00 66 05/18/23 07:43 36.6 C 76 18 164/78 H 95 O2 Del Method 05/18/23 08:55 Room Air 05/18/23 11:39 Room Air 05/18/23 09:24 Room Air 05/18/23 08:00 05/18/23 07:43 Room Air Laboratory Results Laboratory Results - last 24 hr 05/18/23 05/18/23 05/18/23 07:25 07:25 07:25 WBC 11.48 H RBC 4.05 L Hgb 12.4 Hct 36.7 L MCV 90.6 MCH 30.6 MCHC 33.8 RDW Std Deviation 47.5 H RDW Coeff of Anyi 14.4 Plt Count 186 MPV 10.6 PT 17.9 H INR 1.7 H Sodium 137 Potassium 3.2 L Chloride 101 Carbon Dioxide 26 Anion Gap 10 BUN 20 Creatinine 0.80 Est Cr Clr Drug Dosing 58.8 Est GFR ( Amer) 79.6 Est GFR (Non-Af Amer) 68.7 BUN/Creatinine Ratio 25.0 H Glucose 101 H Calcium 8.8 Phosphorus 4.1 Magnesium 1.9 Troponin I High Sens 05/18/23 12:04 WBC RBC Hgb Hct MCV MCH MCHC RDW Std Deviation RDW Coeff of Anyi Plt Count MPV PT INR Sodium Potassium Chloride Carbon Dioxide Anion Gap BUN Creatinine Est Cr Clr Drug Dosing Est GFR ( Amer) Est GFR (Non-Af Amer) BUN/Creatinine Ratio Glucose Calcium Phosphorus Magnesium Troponin I High Sens 15.8 H D
[2023-05-18] MEDS ORDERED: ATROPINE SULFATE 0.1 MG/ML 5ML SYR IV PRN (17:18)
[2023-05-18] MEDS: hydrALAZINE HCL 20 MG/ML VIAL IV PRN ×2 (17:35→22:56)
[2023-05-18 18:35] LABS: Lyme Ab IgG w/WB Rflx Negative (Negative); Lyme Ab IgM w/WB Rflx Negative (Negative)
--- NOTE | 2023-05-18 23:21 | Communication Note ---
Date of Service: May 18, 2023 Episodic bradycardia overnight. Heart rate 20s Patient feeling weird during events. AP Symptomatic bradycardia Atropine as needed symptomatic bradycardia N.p.o. after midnight as per Cardiology recommendations for possible procedure
[2023-05-19] MEDS ORDERED: NSS + 20MEQ KCL 20 MEQ/1,000 ML BAG IV SCH
[2023-05-19] MEDS: lisinopril 2.5 MG TAB PO SCH (02:20)
[2023-05-19] MEDS: LEVOTHYROXINE SODIUM 75 MCG TABLET PO SCH (06:16)
[2023-05-19 06:38] LABS: Hematocrit (blood only) 36.7 % (37.0-47.0); Hemoglobin 12.4 g/dl (12.0-16.0); Mean Corpuscular Hemoglobin 30.4 pg (25.0-34.0); Mean Corpuscular Hgb Conc 33.8 g/dL (32.0-36.0); Mean Platelet Volume 10.8 fL (9.4-12.4); Platelet Count 214 K/uL (130-400); RDW Coefficient of Variation 14.3 % (11.5-14.5); RDW Standard Deviation 46.7 fL (36.4-46.3); Red Blood Count 4.08 M/uL (4.20-5.40); White Blood Count 9.57 K/ul (4.8-10.8)
[2023-05-19 06:47] LABS: BUN Creatinine Ratio 28.4 (10-20); Calcium 8.6 mg/dl (8.6-10.3); Est GFR (African American) 78.4 ml/min; Est GFR (Non-African American) 67.6 ml/min; Magnesium 2.1 mg/dl (1.7-2.4); Phosphorus 3.3 mg/dl (2.5-4.9); Potassium 3.8 mmol/L (3.5-5.1)
[2023-05-19 06:59] LABS: INR 1.4 (0.9-1.1); Prothrombin Time 15.4 Seconds (9.0-12.0)
[2023-05-19] MEDS: POTASSIUM CHLORIDE CRTAB 20 MEQ TABCR PO SCH ×2 (08:28→20:15)
[2023-05-19] MEDS: CITALOPRAM 20 MG TAB PO SCH (08:28)
[2023-05-19] MEDS: CHOLECALCIFEROL 1,000 UNITS 25 MCG TAB PO SCH (08:28)
[2023-05-19] MEDS: ATORVASTATIN 40 MG TAB PO SCH (08:28)
[2023-05-19] MEDS: CEFEPIME 2,000 MG in SYRINGE 0 ML IV SCH (08:30)
--- NOTE | 2023-05-19 10:17 | CT Scan Report ---
CT head/brain wo con CLINICAL HISTORY: 83 years-old Female with bradycardia, head contusion. Acute head trauma TECHNIQUE: Multiple axial CT images of the head were obtained without contrast. A dose lowering tech nique was utilized adhering to the principles of ALARA. CT DOSE: 688.24 mGy.cm COMPARISON: 05/16/2023, 01/15/2020 FINDINGS: No acute intracranial hemorrhage, midline shift, intra-axial mass, hydrocephalus, territorial ischemi a or abnormal extra-axial collection. Involutional changes with chronic microvascular ischemic diseas e. Cerebrovascular calcifications. Partially calcified 1.6 cm extra-axial mass adjacent to the facility specialist ior right cerebrum on image 21 series 2 in noted. This measured approximately 1.2 cm in 2020. This ca uses mild mass effect upon the adjacent brain cortex. No acute calvarial fracture identified. Small mastoid effusions. Mild mucosal thickening of the ethm oid air cells. Contusion with anterior frontal scalp hematoma again noted, 3.3 cm. Prior bilateral le ns repair. IMPRESSION: 1. No acute intracranial abnormality or calvarial fracture. 2. Anterior frontal scalp hematoma redemonstrated. 3. 1.6 cm partially calcified extra-axial lesion suggestive of meningioma again noted adjacent to the right parieto-occipital lobe, increased in size from the 01/15/2020 exam. ACT 112: Negative or not required by law. The above report was generated using voice recognition software. It may contain grammatical, syntax o r spelling errors. Electronically signed by: Mario Cordoba M.D. 05/19/2023 10:16 AM
[2023-05-19] MEDS ORDERED: VANCOMYCIN HCL 1000MG/20ML VIAL ONE (11:39)
[2023-05-19] MEDS ORDERED: WATER, STERILE FOR INJ 10 ML VIAL ONE (11:39)
[2023-05-19] MEDS ORDERED: BUPIVACAINE 0.25% PF 30 ML VIAL ONE (11:40)
--- NOTE | 2023-05-19 12:02 | Cardiology Progress Note ---
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 Last episode occurred however with patient in bed with only leg movement. Patient does describe past multiple not well explained falls Plan keep n.p.o. after mid Continue observe on telemetry Avoid AV node blocking medication Hold warfarin to further defined Echocardiogram ordered Cardiology will follow 05/19/2023 Patient continues to demonstrate episodes of bradycardia/sick sinus syndrome. 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 Admission and Anticipated Discharge Date Admission Date: May 17, 2023 Subjective Patient seen and examined, chart, medications, telemetry reviewed. Further profound bradycardia and sick sinus events occurred overnight and this morning. Patient with lightheadedness on last examination during extended bradycardia. No precipitating cause. Patient awake during last event Review of Systems Review of Systems: All systems reviewed & are unremarkable except as noted in Subjective Physical Exam Constitutional: + obese; no acute distress Eyes: Periorbital ecchymoses ENMT: external ear and nose normal, oropharynx normal Neck: trachea midline, no thyromegaly Respiratory: Auscultation: + diminished lung sounds Cardiovascular: Rate/Rhythm: regular rate, regular rhythm and + bradycardic Vessels: no JVD Extremities: no edema Gastrointestinal (Abdomen): normal bowel sounds, soft, nontender, no hepatosplenomegaly Results & Data Vital Signs (Past 12 Hours) Vital Signs Temp Pulse Pulse Resp BP BP Pulse Ox 05/19/23 11:38 36.6 C 74 14 164/89 H 98 05/19/23 08:00 37.3 C 56 L 19 150/73 H 96 05/19/23 07:58 67 05/19/23 02:01 68 196/81 H 05/19/23 01:00 75 184/82 H 05/19/23 00:40 71 138/92 05/19/23 05:35 163/78 H 05/19/23 03:11 36.8 C 72 12 168/90 H 94 05/19/23 02:00 Pulse Ox O2 Del Method O2 Del Method 05/19/23 11:38 Room Air 05/19/23 08:00 Room Air 05/19/23 07:58 05/19/23 02:01 05/19/23 01:00 05/19/23 00:40 05/19/23 05:35 05/19/23 03:11 Room Air 05/19/23 02:00 99 Room Air
--- NOTE | 2023-05-19 12:15 | Electrocardiogram Report ---
Test Reason : Blood Pressure : / mmHG Vent. Rate : 073 BPM Atrial Rate : 073 BPM P-R Int : 212 ms QRS Dur : 088 ms QT Int : 444 ms P-R-T Axes : 045 -02 015 degrees QTc Int : 489 ms Sinus rhythm with 1st degree A-V block Low voltage QRS Septal infarct , age undetermined Abnormal ECG When compared with ECG of 16-MAY-2023 19:54, Nonspecific T wave abnormality now evident in Anterior leads Confirmed by Eleuterio Yeager ([id number]) on 05/19/2023 12:15:08 PM Referred By: REFERRED SELF Confirmed By:Eleuterio Yeager
[2023-05-19] MEDS ORDERED: ceFAZolin 330 MG/ML 1 GM VIAL ONE (12:20)
[2023-05-19] MEDS ORDERED: fentaNYL citrate PF 100 MCG/2 ML VIAL ONE (12:21)
[2023-05-19] MEDS ORDERED: MIDAZOLAM HCL 5 MG/ML 1 ML VIAL ONE (12:22)
--- NOTE | 2023-05-19 12:25 | Electrocardiogram Report ---
Test Reason : Blood Pressure : / mmHG Vent. Rate : 062 BPM Atrial Rate : 062 BPM P-R Int : 196 ms QRS Dur : 088 ms QT Int : 460 ms P-R-T Axes : 032 -10 010 degrees QTc Int : 466 ms Sinus rhythm Possible with sinus arrest or transient A-V block Septal infarct (cited on or before 18-MAY-2023) Abnormal ECG When compared with ECG of 18-MAY-2023 11:50, (unconfirmed) Significant changes have occurred Confirmed by Eleuterio Yeager ([id number]) on 05/19/2023 12:25:36 PM Referred By: REFERRED SELF Confirmed By:Eleuterio Yeager
--- NOTE | 2023-05-19 12:36 | Cardiology Consultation ---
Date of Consultation May 19, 2023 Assessment & Plan (1) Fall from standing: (2) Sinus bradycardia seen on patient monitor: Plan 1. Falls: She has had a number of falls, the episodes have not been recorded but based on her identified rhythm here it is very likely this is due to sinus bradycardia. Options include long-term monitoring (such as with an implantable loop recorder) however this could be dangerous as she has had injury on several occasions from falling and would require to have another symptomatic event, possibly syncope with injury. Given the overwhelming likelihood that this is sinus bradycardia I think we should proceed with that in mind. 2. Sinus bradycardia: She has had a number of episodes of sinus bradycardia as well as periods of sinus arrest. This is most likely cause of her syncope and we should implant a pacemaker. Since she is in sinus rhythm we should implant a dual-chamber pacemaker. I discussed the indications, procedure, risks and alternatives with her including the use of sedation and she understands and agrees to proceed. I did obtain consent for the procedure and for sedation. History of Present Illness Reason for Consultation: Syncope, sinus bradycardia Requesting Physician: Dr. Hwang Attending Physician: Lorna Arteaga MD History of Present Illness This is an 83-year-old woman who presented with a fall and facial injury, however she has had multiple preceding falls over a number of years. She suddenly loses consciousness and falls to the ground, on March 06, 2020 this occurred and she has ecchymosis of her face. She was admitted following this most recent fall and on telemetry monitoring was noted to have periods of sinus arrest and periods of sinus bradycardia. Although she has not had recurrent symptoms while in the hospital this is very likely a cause of her presentation. Evaluation has included electrocardiography which shows intact AV conduction although she does have borderline first-degree AV block, QRS complex is narrow. And echocardiogram was done May 19, 2023 and shows normal left ventricular size and function with concentric left ventricular hypertrophy. She has aortic sclerosis without stenosis. Allergies Allergy/AdvReac Type Severity Reaction Status Date / Time Influenza Virus Vaccines Allergy COULD NOT Verified 05/17/23 00:47 MOVE, FELT TERRIBLE simvastatin [From Zocor] AdvReac Muscle Pain Verified 05/16/23 23:51 Home Medications Medication Instructions Recorded Confirmed Type atorvastatin 40 mg tablet 40 mg PO DAILY 01/15/20 05/16/23 History hydrochlorothiazide 25 mg tablet 25 mg PO DAILY 01/15/20 05/16/23 History levothyroxine 75 mcg tablet 75 mcg PO DAILY 01/15/20 05/16/23 History potassium chloride 20 mEq 20 meq PO BID 01/15/20 05/16/23 History tablet,extended release warfarin 3 mg tablet 3 mg PO .6DAYS A WEEK 03/27/20 05/16/23 History acetaminophen 325 mg tablet 650 mg PO PC PRN Pain 05/16/23 05/16/23 History (Tylenol) cholecalciferol (vitamin D3) 50 50 mcg PO DAILY 05/16/23 05/16/23 History mcg (2,000 unit) tablet (Vitamin D3) citalopram 20 mg tablet 20 mg PO DAILY 05/16/23 05/16/23 History hydrocortisone acetate 25 mg 25 mg FL HS PRN .. 05/16/23 05/16/23 History rectal suppository (Anusol-HC) vit C 250 mg-vit E 90 mg-zinc 40 1 tab PO AMHS 05/16/23 05/16/23 History mg-copper 1 [id number] capsule (PreserVision AREDS-2) warfarin 3 mg tablet (Jantoven) 6 mg PO .QMON 05/16/23 05/16/23 History Patient History Medical History (Updated 05/19/23 @ 12:51 by Johnny Sellers MD) Fracture, radius, head Hyperlipidemia Hypertension Pulmonary emboli Dx 01/2020 Sleep apnea Surgical History H/O: hysterectomy History of tubal ligation Family History Mother Colorectal cancer Grandfather (Maternal) Heart disease Social History Smoking Status: Never smoker Second Hand Exposure: No; Do You Dip or Chew Tobacco: No; Hx Alcohol Use: No Hx Substance Use: No Preferred Language: Kyrgyz Communication Ability: Effective Tube Balancer Required: No Beliefs That Will Affect Care: None Current Living Situation: Spouse Feels Safe at Home: Yes Safety Concerns: Feels Safe At This Time Assistive Devices: CPAP and Walker Review of Systems Review of Systems: All systems reviewed & are unremarkable except as noted in HPI & below Physical Exam Physical Exam: Constitutional: Alert, cooperative and in no distress. HEENT: Unremarkable Neck: No jugular venous distention, carotid pulses are normal and equal bilaterally without bruits. Pulmonary: Clear to auscultation bilaterally. Cardiac: Regular rhythm with no murmur, gallop or rub. Abdomen: Soft, nontender with normal bowel sounds. Extremities: No edema. Distal pulses intact. Neurologic: No focal findings. Gait is steady. Skin: No rash, ecchymoses or petechiae. Results & Data Vital Signs (Past 12 Hours) Vital Signs Temp Pulse Pulse Resp BP BP Pulse Ox 05/19/23 11:38 36.6 C 74 14 164/89 H 98 05/19/23 08:00 37.3 C 56 L 19 150/73 H 96 05/19/23 07:58 67 05/19/23 02:01 68 196/81 H 05/19/23 01:00 75 184/82 H 05/19/23 00:40 71 138/92 05/19/23 05:35 163/78 H 05/19/23 03:11 36.8 C 72 12 168/90 H 94 05/19/23 02:00 Pulse Ox O2 Del Method O2 Del Method 05/19/23 11:38 Room Air 05/19/23 08:00 Room Air 05/19/23 07:58 05/19/23 02:01 05/19/23 01:00 05/19/23 00:40 05/19/23 05:35 05/19/23 03:11 Room Air 05/19/23 02:00 99 Room Air Laboratory Results Cardiac Enzymes 05/18/23 05/19/23 Range/Units 17:26 00:17 Troponin I High Sens 14.4 H 13.4 (0-14) pg/ml Coagulation 05/19/23 Range/Units 05:39 PT 15.4 H (9.0-12.0) Seconds CBC 05/19/23 Range/Units 05:39 WBC 9.57 (4.8-10.8) K/ul RBC 4.08 L (4.20-5.40) M/uL Hgb 12.4 (12.0-16.0) g/dl Hct 36.7 L (37.0-47.0) % Plt Count 214 (130-400) K/uL Comprehensive Metabolic Panel 05/19/23 Range/Units 05:39 Sodium 137 (136-145) mmol/L Potassium 3.8 (3.5-5.1) mmol/L Chloride 103 (98-107) mmol/L Carbon Dioxide 25 (21-32) mmol/L BUN 23 (6-23) mg/dl Creatinine 0.81 (0.6-1.2) mg/dl Glucose 96 (70-99(Fasting)) mg/dl Calcium 8.6 (8.6-10.3) mg/dl Intake and Output 05/18/23 05/19/23 05/19/23 22:59 06:59 14:59 Intake Total 220 / 454 134 / 454 Output Total 800 / 801 Balance 220 / -347 -666 / -347 Intake: IV 100 / 334 134 / 334 Magnesium Sulfate / D5w 1 gm In 100 / 200 100 ml @ 50 mls/hr IV Q2H JAILYN Rx#:[id number] Nss + 20Meq KCl 20 meq In 1,000 134 / 134 ml @ 40 mls/hr IV .Q24H JAILYN Rx #:[id number] Oral 120 / 120 Output: Urine Amount (Catheter) 800 / 800 External 800 / 800 Other: Other Intake Source sips # Unmeasured Voids 1 Weight 89.4 kg Weight Measurement Method Built in [facility] Diagnostic Findings Telemetry: Sinus rhythm, periods of sinus bradycardia and sinus arrest. PG Care Time/CCT Total # of Minutes Spent Total Time Spent with Patient: Total time spent is greater than 50% in coordination of care (as documented) at patient's floor/unit and/or counseling patient: Coding Level of Care Code 88152 INT INP/OBS CARE 3/75MIN Diagnoses Fall from standing W19.XXXS Encounter type: sequela Sinus bradycardia seen on patient monitor R00.1 (1) Fall from standing Encounter type: sequela Qualified Code(s): W19.XXXS - Unspecified fall, sequela
--- NOTE | 2023-05-19 12:37 | Electrocardiogram Report ---
Test Reason : Blood Pressure : / mmHG Vent. Rate : 050 BPM Atrial Rate : 050 BPM P-R Int : 158 ms QRS Dur : 080 ms QT Int : 506 ms P-R-T Axes : 082 -07 003 degrees QTc Int : 461 ms Sinus bradycardia Septal infarct (cited on or before 18-MAY-2023) Abnormal ECG When compared with ECG of 18-MAY-2023 16:46, (unconfirmed) Nonspecific T wave abnormality, improved in Anterior leads Confirmed by Eleuterio Yeager ([id number]) on 05/19/2023 12:37:20 PM Referred By: REFERRED SELF Confirmed By:Eleuterio Yeager
--- NOTE | 2023-05-19 12:38 | Pre Anesthesia Assessment ---
Date of Service May 19, 2023 Pre Sedation Assessment Vital Signs Temp Pulse Pulse Resp BP BP Pulse Ox 05/19/23 11:38 36.6 C 74 14 164/89 H 98 05/19/23 08:00 37.3 C 56 L 19 150/73 H 96 05/19/23 07:58 67 05/19/23 02:01 68 196/81 H 05/19/23 01:00 75 184/82 H 05/19/23 00:40 71 138/92 05/19/23 05:35 163/78 H 05/19/23 03:11 36.8 C 72 12 168/90 H 94 05/19/23 02:00 05/18/23 23:55 73 159/73 H 05/18/23 23:02 20 L 05/18/23 23:00 69 05/18/23 23:22 170/76 H 05/18/23 22:50 36.8 C 72 17 178/82 H 100 05/18/23 18:38 36.8 C 72 18 170/83 H 97 05/18/23 18:01 162/75 H 05/18/23 17:33 17 178/86 H 95 05/18/23 17:07 76 05/18/23 16:01 36.4 C L 73 20 167/92 H 97 Pulse Ox O2 Del Method O2 Del Method 05/19/23 11:38 Room Air 05/19/23 08:00 Room Air 05/19/23 07:58 05/19/23 02:01 05/19/23 01:00 05/19/23 00:40 05/19/23 05:35 05/19/23 03:11 Room Air 05/19/23 02:00 99 Room Air 05/18/23 23:55 05/18/23 23:02 05/18/23 23:00 05/18/23 23:22 05/18/23 22:50 Room Air 05/18/23 18:38 Room Air 05/18/23 18:01 05/18/23 17:33 Room Air 05/18/23 17:07 05/18/23 16:01 Room Air Cardiovascular RRR, no murmur, no edema Respiratory normal respiratory effort, lungs clear to auscultation Pre-Sedation Airway Assessment Smoking Status: Never smoker Hx Sleep Apnea: Yes Short, Thick Neck: Yes Thyromental Distance: > or= 3.5 Finger Breadths Oral Cavity: + Capped Teeth Mallampati Class: II ASA: ASA2 NPO Status Date of Last Intake of Fluids: 05/18/23 Date of Last Intake of Solid Food: 05/18/23 Procedure Planning Contraindications for Sedation: none Current Medications Reviewed: Yes Notes The planned sedation has been discussed with the patient. Informed Consent was obtained. I have identified the patient, determined the appropriateness of amanda tion and have assessed the patient immediately prior to the procedure. All medicine(s) and interventions are by my order.
[2023-05-19] MEDS ORDERED: METOPROLOL TARTRATE 1 MG/ML VIAL IV ONE ×2 (13:30→13:58)
--- NOTE | 2023-05-19 13:34 | Hospitalist Progress Note ---
Date of Service May 19, 2023 Assessment & Plan (1) Fall from standing: Plan 83-year-old lady with PMH of HTN, HLD, PE on Coumadin, CON on CPAP, hypothyroidism, anxiety/mood disorder, tremors presented to the ED 05/16 with complaints of fall. Patient reports she was walking towards her car when she suddenly fell face forward into concrete. Patient denies any loss of consciousness/seizure activity/nausea/diaphoresis/palpitations/chest pain/shortness of breath.She also states she confirmed there was nothing that she might have tripped on and fell. She also reports dysuria that started from the morning of arrival. She is being managed for the following: Fall, likely mechanical vs cardiogenic Possible ambulatory dysfunction Right knee pain, secondary to fall Patient came in with fall, denies any symptoms prior/during/after fall. Admitting CT C-spine and CXR with no acute findings. Admitting CT head with no acute fracture, does show increasing calcified mass along the posterior aspect of the right parietal bone. MRI is recommended. The patient has been made aware, MRI sent. Admitting right knee x-ray with prepatellar soft tissue swelling and joint effusion with no fracture. Fall precaution, PT/OT, likely will need rehab. Pain management, nausea control, orthopedic consultawait recommendation Bilateral periorbital ecchymosis; and CT showing large forehead scalp hematoma -->Coumadin on hold, monitor H&H, monitor lesions clinically. f/u on MRI brain - Meningioma, no mass effect -- Pt is made aware. 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 Had multiple episodes of symptomatic/profound bradycardia over 05/18 and 05/19 without precipitating cause. 05/19 echo Echo with EF of 60 to 65%, grade 1 diastolic dysfunction, mild concentric LVH, LV size normal. Cardiology on board, plan for dual AV lead pacer placement today Monitor and replete electrolytes. Complicated UTI:Patient presenting with dysuria/frequency symptoms, started on cefepime 05/17, de-escalate to Keflex 05/19. Did not meet SIRS criteria, no sepsis POA. Increase blood lactic acid level:Present on admission, likely secondary to infection. Status post IV fluid. Resolved. Hypertensive urgency:Likely secondary to traumatic injury and pain. Continue with home blood pressure medication. Use as needed blood pressure medications. Continue telemetry. Other chronic medical conditions:Continue with/resume home meds as and when able. hyperlipidemia, on statin Rx hx PE on Coumadin, regarding coumadin see above. CON on CPAP hypothyroidism, euthyroid as of recent outpatient TSH hx tremors Hyperglycemia rule out DM - a1c 5.9, prediabetic,encourage life style modification/fu w/ A1c in 3 months at PCP office. DVT prophylaxis: SCDs, Coumadin on hold Full code Disposition: PT/OT, CM to assist with DC planning. Admission and Anticipated Discharge Date Admission Date: May 17, 2023 Subjective Patient was seen and examined at bedside. Patient was lying in bed, on room air, NAD, resting comfortably. Had multiple events of profound bradycardia and associated symptoms without precipitating cause throughout the day yesterday, overnight and in the morning. All of them resolved spontaneously. Patient reports no new acute event overnight, reports improving dysuria/frequency of urination. Patient reports facial pain under control. Physical Exam Physical Exam: GENERAL: Alert and oriented x3. NAD, on RA. HEENT: No pallor, no icterus. Pupils equal, round and reactive to light. Oral mucosa moist. bilateral periorbital ecchymosis noted, forehead hematoma noted NECK: No JVD, no neck masses. HEART: S1 and S2 heard. Regular rate and rhythm. No murmur, no gallop. RESPIRATORY SYSTEM: Normal AP diameter. No accessory muscle use. No wheezing, no crackles. ABDOMEN: Soft, bowel sounds present, nontender, no distention. CENTRAL NERVOUS SYSTEM: No facial droop. Speech is clear. Obeys simple commands. Moves extremities. EXTREMITIES: No edema, no erythema seen. Results & Data Results & Data Vital Signs (Past 12 Hours) Vital Signs Temp Pulse Pulse Resp BP BP Pulse Ox 05/19/23 11:38 36.6 C 74 14 164/89 H 98 05/19/23 08:00 37.3 C 56 L 19 150/73 H 96 05/19/23 07:58 67 05/19/23 02:01 68 196/81 H 05/19/23 05:35 163/78 H 05/19/23 03:11 36.8 C 72 12 168/90 H 94 05/19/23 02:00 Pulse Ox O2 Del Method O2 Del Method 05/19/23 11:38 Room Air 05/19/23 08:00 Room Air 05/19/23 07:58 05/19/23 02:01 05/19/23 05:35 05/19/23 03:11 Room Air 05/19/23 02:00 99 Room Air (1) Fall from standing Encounter type: sequela Qualified Code(s): W19.XXXS - Unspecified fall, sequela
[2023-05-19] MEDS ORDERED: hydrALAZINE HCL 20 MG/ML VIAL ONE (13:43)
--- NOTE | 2023-05-19 13:59 | Electrophysiology Report ---
Date of Service May 19, 2023 Electrophysiology Procedure Electrophysiology Procedure Report Preoperative diagnosis: Sinus node dysfunction Postoperative diagnosis: Same Procedure: Left subclavian venogram Dual-chamber pacemaker implantation Surgeon: Johnny Sellers MD Estimated blood loss: 20 cc Specimens: None Anesthesia: Local with sedation Procedure details: After obtaining informed consent for the procedure, the patient was brought to the laboratory and prepped and draped in the standard sterile manner. Dye was injected the left arm IV site to opacify the left subclavian vein. The subclavian vein was identified and found to be free of obstruction. The left prepectoral region was anesthetized with 1% lidocaine local anesthetic and left axillary venipuncture was performed by percutaneous technique and a guidewire placed through the left subclavian vein into the superior vena cava. The area was further infiltrated with 1% lidocaine local anesthetic and a 5 cm incision was made parallel to the left clavicle and 2 cm below it and carried down to the anterior pectoralis fascia. A pacemaker pocket was formed by blunt dissection anterior to the pectoralis fascia and a vancomycin soaked sponge was placed in the pocket. An 8.5 English Medtronic lead introducer was placed over the guidewire into the left subclavian vein, the dilator and guidewire were removed and a bipolar active fixation steroid tipped ventricular lead was advanced through the introducer into the superior vena cava. A guidewire was placed through the introducer and the introducer was stripped from the lead and guidewire. Another 8.5 English Medtronic lead introducer was placed over the guidewire into the left subclavian vein, the dilator and guidewire were removed and a bipolar active fixation steroid tipped atrial lead was advanced through the introducer into the superior vena cava. A guidewire was placed back through the introducer and the introducer was stripped from the lead and guidewire. Using a curved stylette the ventricular lead was advanced through the right ventricular outflow tract into the pulmonary artery and then using a straight stylette was positioned in the right ventricular apex. The screw was extended fixing the lead in position. Pacing and sensing thresholds were evaluated in bipolar configuration and are recorded on the implant data sheet. Using a curved stylette the atrial lead was positioned in the region of the atrial appendage and the screw extended fixing the lead in position. Pacing and sensing thresholds were evaluated in bipolar configuration and are recorded on the implant data sheet. Once the leads were in position they were attached to the anterior pectoralis fascia using 2 sutures of 2-0 silk around each lead collar. The vancomycin soaked sponge was removed from the pocket, hemostasis was obtained, the pacemaker was attached to the leads and placed in the pocket with the leads coiled beneath it. The incision was closed with a running double subcutaneous closure of 3-0 Vicryl absorbable suture, followed by running subcuticular skin closure of 4-0 Vicryl absorbable suture. Bacitracin ointment was placed on the incision and a dressing applied. [facility] [place]rophysiology codes Indication for Procedure (1) Sinus bradycardia seen on potline monitor: Pacing Procedure 1: Pacin Insert/Replace Pacer A & V Miscellaneous Procedures Procedure 1: EP Miscellaneous: 09941 Contrast injection for venography Procedure 2: EP Miscellaneous: 89087-61 Vengraphy, extremity PG Moderate Sedation Codes Moderate Sedation Codes Procedure 1: Sedation/Anesthesia: 10882 Mod Sedation by the same physician;Init15 Min Child Age 5 & Up Procedure 2: Sedation/Anesthesia: 48158 Mod Sedation by the same physician; Ea [id number] Minutes
[2023-05-19] MEDS: cephALEXin 500 MG CAP PO SCH ×3 (14:45→20:15)
[2023-05-19] MEDS: ACETAMINOPHEN W/CODEINE #3 1 TAB PO PRN (15:07)
--- NOTE | 2023-05-19 15:51 | Electrocardiogram Report ---
Test Reason : Blood Pressure : / mmHG Vent. Rate : 060 BPM Atrial Rate : 060 BPM P-R Int : 220 ms QRS Dur : 090 ms QT Int : 478 ms P-R-T Axes : 084 -10 012 degrees QTc Int : 478 ms Atrial-paced rhythm with prolonged AV conduction Septal infarct (cited on or before 18-MAY-2023) Abnormal ECG When compared with ECG of 19-MAY-2023 08:24, Electronic atrial pacemaker has replaced Sinus rhythm Confirmed by Eleuterio Yeager ([id number]) on 05/19/2023 3:51:34 PM Referred By: REFERRED SELF Confirmed By:Eleuterio Yeager
[2023-05-20] MEDS: LEVOTHYROXINE SODIUM 75 MCG TABLET PO SCH (05:32)
[2023-05-20 06:22] LABS: Hematocrit (blood only) 36.2 % (37.0-47.0); Hemoglobin 12.1 g/dl (12.0-16.0); Mean Corpuscular Hemoglobin 30.3 pg (25.0-34.0); Mean Corpuscular Hgb Conc 33.4 g/dL (32.0-36.0); Mean Corpuscular Volume 90.7 fL (80.0-100.0); Mean Platelet Volume 10.7 fL (9.4-12.4); Platelet Count 215 K/uL (130-400); RDW Coefficient of Variation 14.4 % (11.5-14.5); RDW Standard Deviation 48.3 fL (36.4-46.3); Red Blood Count 3.99 M/uL (4.20-5.40); White Blood Count 9.01 K/ul (4.8-10.8)
[2023-05-20 06:35] LABS: Calcium 8.7 mg/dl (8.6-10.3); Creatinine Clr Calc Pharmacy 53.8 ml/min; Est GFR (African American) 72.9 ml/min; Est GFR (Non-African American) 62.9 ml/min; Magnesium 1.9 mg/dl (1.7-2.4); Potassium 3.6 mmol/L (3.5-5.1)
[2023-05-20 06:48] LABS: INR 1.3 (0.9-1.1)
--- NOTE | 2023-05-20 08:32 | XRay Report ---
XR chest 2V PA/lateral HISTORY: Status post pacemaker placement. EXACT TIME ORDERED Evaluate for pneumothorax and l COMPARISON: Chest 05/16/2023. FINDINGS: There are low lung volumes. Interval placement of a left-sided dual-chamber pacemaker. The leads appear intact. No pneumothorax. The heart is enlarged. A few small bibasilar linear densities c onsistent with subsegmental atelectasis. No evidence for pulmonary edema. Old compression deformity w ithin the lumbar spine. IMPRESSION: Interval placement of a left-sided dual-chamber pacemaker. No pneumothorax. ACT 112: Negative or not required by law. Electronically signed by: Chente Iverson M.D. 05/20/2023 8:30 AM
[2023-05-20] MEDS: ATORVASTATIN 40 MG TAB PO SCH (08:51)
[2023-05-20] MEDS: lisinopril 2.5 MG TAB PO SCH (08:51)
[2023-05-20] MEDS: CHOLECALCIFEROL 1,000 UNITS 25 MCG TAB PO SCH (08:51)
[2023-05-20] MEDS: CITALOPRAM 20 MG TAB PO SCH (08:51)
[2023-05-20] MEDS: cephALEXin 500 MG CAP PO SCH ×3 (08:51→16:33)
[2023-05-20] MEDS: POTASSIUM CHLORIDE CRTAB 20 MEQ TABCR PO SCH (08:55)
[2023-05-20] MEDS: ACETAMINOPHEN W/CODEINE #3 1 TAB PO PRN (08:55)
--- NOTE | 2023-05-20 09:15 | Cardiology Progress Note ---
Date of Service May 20, 2023 Assessment & Plan (1) Status post placement of cardiac pacemaker: Plan 1. Postop day #1: She is doing well postop pacemaker, the device is working well, leads are in good position and there is no pneumothorax. The incision looks good. She is stable for discharge. I have not scheduled her for follow-up in our office, I assume she will follow- up in [facility]. If not let me know and I will schedule for our office. Admission and Anticipated Discharge Date Admission Date: May 17, 2023 Subjective She is feeling well today, she has no complaints referable to her pacemaker site. No chest discomfort or shortness of breath. Physical Exam Physical Exam: Her incision is clean and dry, no erythema or swelling. Dressing changed. Lungs are clear Cardiac rhythm is regular with no rub Results & Data Vital Signs (Past 12 Hours) Vital Signs Temp Pulse Pulse Resp BP BP Pulse Ox 05/20/23 08:44 37.0 C 74 18 111/48 L 95 05/20/23 07:01 60 05/20/23 03:28 36.3 C L 60 20 155/71 H 97 05/19/23 23:00 60 05/19/23 23:53 36.8 C 60 18 138/62 96 O2 Del Method 05/20/23 08:44 Room Air 05/20/23 07:01 05/20/23 03:28 Room Air 05/19/23 23:00 05/19/23 23:53 Room Air Diagnostic Findings Postop ECG: Atrial pacing with intact AV conduction Telemetry: Normal pacemaker function with predominant atrial pacing appropriately. Chest x-ray: Good lead position, no pneumothorax Pacemaker evaluation: Excellent pacing and sensing characteristics. PG Care Time/CCT Total # of Minutes Spent Total Time Spent with Patient: Total time spent is greater than 50% in coordination of care (as documented) at patient's floor/unit and/or counseling patient: Coding Level of Care Code 24777 Post Operative Follow-Up Diagnoses Status post placement of cardiac pacemaker Z95.0 CPT Codes Dual Lead Pacemaker System - 65188 ([id number])
--- NOTE | 2023-05-20 09:55 | Post Anesthesia Assessment ---
Date of Service May 19, 2023 Post Sedation Assessment Vital Signs Temp Pulse Pulse Resp BP BP Pulse Ox 05/20/23 08:44 37.0 C 74 18 111/48 L 95 05/20/23 07:01 60 05/20/23 03:28 36.3 C L 60 20 155/71 H 97 05/19/23 23:00 60 05/19/23 23:53 36.8 C 60 18 138/62 96 05/19/23 20:07 37.1 C 60 16 138/65 97 05/19/23 16:48 61 05/19/23 16:00 60 26 H 141/72 H 94 05/19/23 15:54 36.6 C 60 18 135/102 H 91 05/19/23 15:18 36.5 C 60 18 157/84 H 97 05/19/23 14:43 36.5 C 60 16 158/76 H 97 05/19/23 14:15 60 16 163/65 H 95 05/19/23 14:00 60 16 177/95 H 95 05/19/23 11:38 36.6 C 74 14 164/89 H 98 O2 Del Method 05/20/23 08:44 Room Air 05/20/23 07:01 05/20/23 03:28 Room Air 05/19/23 23:00 05/19/23 23:53 Room Air 05/19/23 20:07 Room Air 05/19/23 16:48 05/19/23 16:00 Room Air 05/19/23 15:54 Room Air 05/19/23 15:18 Room Air 05/19/23 14:43 Room Air 05/19/23 14:15 Room Air 05/19/23 14:00 Room Air 05/19/23 11:38 Room Air Recovery Score Activity: Moves 4 extremities Respiration: Deep Breath/Cough Circulation: +/-20% PreAnes Value Consciousness: Fully Awake Oxygen Saturation: > 92% On Room Air Post Anesthesia Score: 10 Discharge Sedation Level of Care: Fast Track Phase II Post Sedation Plan On clinical assessment, the patient appears to have tolerated the sedation without complications. Patient is recovering as anticipated. Patient will continue to be monitored by nursing and may be discharged when sedation discharge criteria are met per below protocol. Upon Completions of procedure up to 15 minutes continue every 5 minute vital signs and the P.A.R. score; then discharge to a Phase I or Fast Track to Phase II per the following guidelines: * Discharge Patient to appropriate Phase II area if PAR is 8 or greater or return to pre- procedure baseline. The post - procedure orders will be as directed. * If PAR score is less than 8 or not return to pre-procedure baseline then patient will follow Phase I monitoring till PAR is reached for Phase II. The Phase I may be done in procedure room or may call to secure a Phase I area. * If naloxone or flumazenil are used for reversal, hold in Phase I for continued monitoring from when last reversal dose was given for a minimum of 60 minutes or longer pending the nurse and/or physician discretion of patient condition before discharge to Phase II. Please call the Sedation Physician to re-evaluate and complete post-note for discharge to Phase II area. Do NOT discharge from procedure sedation or Phase 1 until post- sedation evaluation note is complete by procedure /sedation MD Sedation Discharge Instructions to be given to the patient at discharge to home.
--- NOTE | 2023-05-20 10:10 | Cardiology Progress Note ---
Date of Service May 20, 2023 Assessment & Plan (1) Sinus bradycardia seen on playground monitor: (2) Fall from standing: (3) Facial hematoma: Plan Patient on telemetry demonstrated marked sinus bradycardia twice today possible sinus arrest versus acute vagal event. Last episode occurred however with patient in bed with only leg movement. Patient does describe past multiple not well explained falls Plan keep n.p.o. after mid Continue observe on telemetry Avoid AV node blocking medication Hold warfarin to further defined Echocardiogram ordered Cardiology will follow 05/19/2023 Patient continues to demonstrate episodes of bradycardia/sick sinus syndrome. 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 05/20/2023 Patient underwent dual-chamber pacemaker insertion yesterday without difficulty. Device functioning appropriately wound incision intact Recommendations: Resume warfarin Office contacted to arrange pacer clinic follow-up, cardiology follow-up post hospital discharge Stable from cardiac standpoint Admission and Anticipated Discharge Date Admission Date: May 17, 2023 Subjective Patient seen and examined, chart, medications reviewed. Feels well from a cardiac standpoint this morning. Pacemaker site healing well with pacemaker functioning appropriately. Incision bandaged, clean Review of Systems Review of Systems: All systems reviewed & are unremarkable except as noted in Subjective Physical Exam Constitutional: + obese; no acute distress ENMT: external ear and nose normal, oropharynx normal Neck: trachea midline, no thyromegaly Respiratory: Auscultation: + diminished lung sounds Cardiovascular: Rate/Rhythm: regular rate, regular rhythm and + bradycardic Vessels: no JVD Extremities: no edema Chest (Breasts): Chest: + pacemaker (Incision remains clean no hematoma) Gastrointestinal (Abdomen): normal bowel sounds, soft, nontender, no hepatosplenomegaly Results & Data Vital Signs (Past 12 Hours) Vital Signs Temp Pulse Pulse Resp BP BP Pulse Ox 05/20/23 08:44 37.0 C 74 18 111/48 L 95 05/20/23 07:01 60 05/20/23 03:28 36.3 C L 60 20 155/71 H 97 05/19/23 23:00 60 05/19/23 23:53 36.8 C 60 18 138/62 96 O2 Del Method 05/20/23 08:44 Room Air 05/20/23 07:01 05/20/23 03:28 Room Air 05/19/23 23:00 05/19/23 23:53 Room Air (2) Fall from standing Encounter type: sequela Qualified Code(s): W19.XXXS - Unspecified fall, sequela
[2023-05-20] MEDS: hydroCHLOROthiazide 25 MG TAB PO SCH (11:30)
--- NOTE | 2023-05-20 14:33 | Discharge Summary ---
Date of Service May 20, 2023 Admission HPI Per Admitting Provider History obtained from patient and records. Medical history significant for hypertension, hyperlipidemia, PE on Coumadin, CON on CPAP, hypothyroidism, anxiety/mood disorder, tremors. Last confinement March 2020 for bilateral PE. Patient discharged on Coumadin Rx. [facility] [place] recommended long-term anticoagulant treatment given spontaneous thrombotic circumstances as per documentation. Patient noted dysuria symptoms this morning without abdominal pain, fever, chills. Patient was walking towards her car when she suddenly fell face forward into concrete. No LOC, no chest pain, no SOB. Achy facial pain from bump on the face and black eye. Transient bilateral blurred vision, no otorrhea/rhinorrhea. Right knee pain following fall. SBP to 220s upon arrival at the ER. 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 Admission Exam Per Admitting Provider GENERAL: Comfortable, pleasant, obese, no respiratory distress SKIN: Normal color, warm HEENT: Frontal hematoma, periorbital ecchymosis, pink palpebral conjunctivae, no ptosis, dry buccal mucosa NECK : Supple, short neck, no tenderness CHEST : CTA, no tenderness HEART : RRR, no obvious murmurs ABDOMEN: Some distention, nontender EXTREMITIES : Minimal LE swelling, tender right knee swelling NEUROLOGIC : Coherent, no gaze limitation, no facial asymmetry, intention tremors right upper extremity, gait and stance not assessed Principal Diagnosis Symptomatic sinus bradycardia, status post pacer placement Fall from standing Facial hematoma Complicated UTI Hypertensive urgency Discharge Exam GENERAL: Alert and oriented x3. NAD, on RA. HEENT: No pallor, no icterus. Pupils equal, round and reactive to light. Oral mucosa moist. bilateral periorbital ecchymosis noted, forehead hematoma noted NECK: No JVD, no neck masses. HEART: S1 and S2 heard. Regular rate and rhythm. No murmur, no gallop. RESPIRATORY SYSTEM: Normal AP diameter. No accessory muscle use. No wheezing, no crackles. ABDOMEN: Soft, bowel sounds present, nontender, no distention. CENTRAL NERVOUS SYSTEM: No facial droop. Speech is clear. Obeys simple commands. Moves extremities. EXTREMITIES: No edema, no erythema seen. Discharge Data Allergies Allergy/AdvReac Type Severity Reaction Status Date / Time Influenza Virus Vaccines Allergy COULD NOT Verified 05/17/23 00:47 MOVE, FELT TERRIBLE simvastatin [From Zocor] AdvReac Muscle Pain Verified 05/16/23 23:51 Consultations 05/16/23 23:10 ED Decision to Admit Stat 05/17/23 01:12 Consult Orthopedic Surgery Routine 05/18/23 11:57 Consult Cardiology Routine 05/19/23 08:37 Consult Cardiac Electrophysiology Routine Procedures Performed Operation Date: 05/19/23 10:00 Actual Procedures p Pacer with A/V Leads (Dual) - Johnny Sellers MD s Venogram, Unilateral - Johnny Sellers MD Ordered Studies 05/16/23 20:03 CT cervical spine wo con Stat CT head/brain wo con Stat 05/17/23 11:45 MRI Brain [MR brain wo/w con] Routine 05/19/23 08:15 EP Lab Images for PACS ONCE 05/19/23 08:43 CT head/brain wo con Urgent Hospital Course (1) Fall from standing: Plan 83-year-old lady with PMH of HTN, HLD, PE on Coumadin, CON on CPAP, hypothyroidism, anxiety/mood disorder, tremors presented to the ED 05/16 with complaints of fall. Patient reports she was walking towards her car when she suddenly fell face forward into concrete. Patient denies any loss of consciousness/seizure activity/nausea/diaphoresis/palpitations/chest pain/shortness of breath.She also states she confirmed there was nothing that she might have tripped on and fell. She also reports dysuria that started from the morning of arrival. She is being managed for the following: Fall, likely mechanical vs cardiogenic Possible ambulatory dysfunction Right knee pain, secondary to fall Patient came in with fall, denies any symptoms prior/during/after fall. Admitting CT C-spine and CXR with no acute findings. Admitting CT head with no acute fracture, does show increasing calcified mass along the posterior aspect of the right parietal bone. MRI is recommended. The patient has been made aware, MRI sent. Admitting right knee x-ray with prepatellar soft tissue swelling and joint effusion with no fracture. Fall precaution, PT/OT, likely will need rehab. Pain management, nausea control, Knee pain better; if worsening pt advised to f/u with her orthopaedics on DC. Bilateral periorbital ecchymosis; and CT showing large forehead scalp hematoma --> H&H has been stable. Coumadin resumed. f/u on MRI brain - Meningioma, no mass effect -- Pt is made aware. 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 Had multiple episodes of symptomatic/profound bradycardia over 05/18 and 05/19 without precipitating cause. Echo with EF of 60 to 65%, grade 1 diastolic dysfunction, mild concentric LVH, LV size normal. Cardiology on board, status post dual AV lead pacer placement 05/19/2023 Patient to follow-up with cardiology in a week time upon discharge. Complicated UTI:Patient presenting with dysuria/frequency symptoms, started on cefepime 05/17, de-escalate to Keflex 05/19. Did not meet SIRS criteria, no sepsis POA. Increase blood lactic acid level:Present on admission, likely secondary to infection. Status post IV fluid. Resolved. Hypertensive urgency:Likely secondary to traumatic injury and pain. Continue with home blood pressure medication. Use as needed blood pressure medications. Continue telemetry. Other chronic medical conditions:Continue with/resume home meds as and when able. hyperlipidemia, on statin Rx hx PE on Coumadin, regarding coumadin see above. CON on CPAP hypothyroidism, euthyroid as of recent outpatient TSH hx tremors Hyperglycemia rule out DM - a1c 5.9, prediabetic,encourage life style modification/fu w/ A1c in 3 months at PCP office. DVT prophylaxis: SCDs, Coumadin on hold Full code Disposition: PT/OT, CM to assist with DC planning. Patient is being discharged to [facility] with following instruction at the point of discharge: Follow-up with your primary care physician within a week time and likely you will need labs CBC/CMP/magnesium/phosphorus. You are being resumed on your Coumadin from today, you will need daily PT/INR and adjustment of your Coumadin dose while at [facility]. As discussed at the bedside, you have meningioma when we did MRI of your brain while in here. This needs long-term follow-up, coordinate with your PCP office. For your fall, likely heart related, you underwent evaluation by cardiology and dual-lead AV pacer placement. You will need follow-up with cardiology in a week time. You will be discharged on antibiotic to complete the course for your UTI. Your A1c was 5.9 while in hospital, encourage lifestyle modification, follow-up with A1c in 3 months at your PCP office. If your knee pain worsens, you need to follow-up with your orthopedics. Please make sure that you are able to get your medications today by calling your pharmacy before you leave the hospital so that your treatment continuity is not broken. Home Health Attestation I certify that this patient is under my care and that I, or a physicians assistant director working with me, had a face to-face encounter that meets the home health [id number] encounter requirements with this patient. The encounter with the patient was in whole, or in part, for the following medical condition, which is the primary reason for home health care (list medical condition): I certify that, based on my findings, the following services are medically necessary home health services: My clinical findings support the need for the above services because: Further, I certify that my clinical findings support that this patient is homebound (i.e. absences from home require considerable and taxing effort and are for medical reasons or [facility] or infrequently or of short duration when for other reasons) because: Certification for Home Health Services: Based on the above findings, I certify that this patient is confined to the home and needs intermittent long term care, physical therapy and/or speech therapy or continues to need occupational therapy. The patient is under my care, and I have initiated the establishment of the plan of care. This patient will be followed by a physician who will periodically review the plan of care. Total Time Total Time Spent Total Time Spent (In Minutes): 45 Discharge Plan Discharge Items Patient Disposition: Transfer Inpatient Rehab Fac Reason For Visit: SEPSIS Discharge Diagnosis: Symptomatic sinus bradycardia, status post pacer placement Fall from standing Facial hematoma Complicated UTI Hypertensive urgency Activity: Resume your previous activity Non-emergency contact: Primary Care Provider Call non-emergency contact if: you have any medication questions Follow-up/Referrals: Мария Littlejohn DO [Primary Care Provider] - Diet: Heart Healthy and Low Sodium (2gm) Addtl Attending Provider Instructions: ACTIVITY RECOMMENDATIONS: * Do not raise affected arm over head for 2 weeks. SPECIAL CARE INSTRUCTIONS: * If bleeding occurs, apply direct pressure to area for 5 minutes. * Call your doctor if you have severe pain, fever, drainage or bleeding at site. * Keep dressing on and dry for 48 hours then remove. * Keep any scheduled doctor's appointment. * Implant Card - hand held device with website information given. SKIN IRRITATION: * You may experience some redness and/or swelling in the area where radiation was administered. If any skin irritation occurs, please contact your family physician. FOLLOW UP VISIT: Keep any scheduled doctor appointments. Addtl Web Development Instructor Provider Instructions: Follow-up with your primary care physician within a week time and likely you will need labs CBC/CMP/magnesium/phosphorus. You are being resumed on your Coumadin from today, you will need daily PT/INR and adjustment of your Coumadin dose while at [facility]. As discussed at the bedside, you have meningioma when we did MRI of your brain while in here. This needs long-term follow-up, coordinate with your PCP office. For your fall, likely heart related, you underwent evaluation by cardiology and dual-lead AV pacer placement. You will need follow-up with cardiology in a week time. You will be discharged on antibiotic to complete the course for your UTI. Your A1c was 5.9 while in hospital, encourage lifestyle modification, follow-up with A1c in 3 months at your PCP office. If your knee pain worsens, you need to follow-up with your orthopedics. Please make sure that you are able to get your medications today by calling your pharmacy before you leave the hospital so that your treatment continuity is not broken. Pending Studies at Discharge: Yes Stand-Alone Forms: [facility] Patient informed of condition?: Yes DNR: No Discharge Level of Care: Acute rehab Communicable Disease: No Discharge Prognosis: Stable Lines: None Urinary Catheter: No Medications and DC Order Prescriptions: New cephalexin 500 mg Capsule 500 mg PO QID 4 Days Qty: 16 0RF lisinopril 2.5 mg Tablet 2.5 mg PO QAM Qty: 30 0RF Continued warfarin 3 mg tablet 3 mg PO .6DAYS A WEEK Rx Instructions: Takes all days except Mon takes 10 mg atorvastatin 40 mg Tablet 40 mg PO DAILY levothyroxine 75 mcg Tablet 75 mcg PO DAILY hydrochlorothiazide 25 mg Tablet 25 mg PO DAILY potassium chloride 20 mEq Tablet Extended Release 20 meq PO BID warfarin [Jantoven] 3 mg tablet 6 mg PO .QMON citalopram 20 mg tablet 20 mg PO DAILY cholecalciferol (vitamin D3) [Vitamin D3] 50 mcg (2,000 unit) Tablet 50 mcg PO DAILY acetaminophen [Tylenol] 325 mg Tablet 650 mg PO PC PRN (Reason: Pain) hydrocortisone acetate [Anusol-HC] 25 mg Suppository 25 mg MS HS PRN (Reason: ..) PreserVision AREDS-2 250-90-40-1 mg Capsule 1 tab PO AMHS Discharge Orders: Discharge Order (Routine); Ordered 05/20/23 Ordered By: Lorna Arteaga Admission Data Admit Date/Time: 05/17/23 01:03 Attending Provider: Lorna Arteaga Admit Provider: Nakul Devi Primary Care Provider: Мария Littlejohn Other Providers: Nakul Devi ; Ramón Rodriguez ; Crow Hwang ; [place] ; Ciaran Schneider ; Eleuterio Yeager ; Jamaal Sanchez ; Johnny Sellers ; Richard Garcia Jr ; Dandy Clements ; Yancy Adkins ; Kaykay Flowers ; Tad Rm ; Tad Sainz ; Fausto Taveras ; Susanna Kerns ; Kaitlin Kemp ; Albert Harrell ; Jaiden Dowell ; Jamaal Zayas V. ; Fareed Pugh ; [facility]
[2023-05-20] MEDS ORDERED: WARFARIN SOD 3 MG TAB PO SCH (16:00)
[2023-05-26] MEDS ORDERED: WARFARIN SOD 6 MG TAB PO SCH (16:00)
== END 2023-05-20 18:23 | DRG 243 ==
LOC: ED 19:43 → 2N 05-17 01:03 → 2E 05-18 18:20

== ENCOUNTER 2025-03-06 18:21 | Inpatient (IN) ==
--- NOTE | 2025-03-06 18:49 | Emergency Department Note ---
Impression & Plan Fall down stairs, Fracture of left wrist, Recurrent falls, On warfarin therapy, Ambulatory dysfunction ED Provider Note NAME: TIANNA DO AGE: 84 SEX: F : 1940 ARRIVES VIA: Walk-In INFORMANT: Patient ED PROVIDER(S): Cristian Rod MD CHIEF COMPLAINT: Fall downstairs PLAN: Disposition: Admit MEDICAL DECISION MAKING: The patient is a pleasant 84-year-old woman with a past medical history of pulmonary embolism on warfarin, hypertension, hyperlipidemia, hypothyroidism who presents to the emergency department via walk-in, accompanied by family for evaluation after having a fall where the patient was 3 steps from the top of a flight of stairs and seems to have lost her balance falling backwards down the rest of the stairs. Family member heard the sound and found her awake, alert and oriented and so loss of consciousness is not suspected. Patient reports she is not entirely sure what happened when she got to the top but fell backwards. The patient presents in the setting of being seen in this emergency department earlier this morning for a ground-level fall and had negative CT scan of the head. Patient feels she may have hit the front of her head when she fell prior to arrival. She reports some pain in her left wrist and left shoulder. Due to the mechanism of falling down the stairs on anticoagulation trauma alert was activated from triage. On evaluation patient no acute distress, afebrile with stable vital signs. Minor erythema of the lower forehead without overt contusion or hematoma. No midline CTL spine tenderness palpation or step-offs. No tenderness of the chest or back. Mild discomfort of the left AC joint. Mild tenderness of the left wrist with mild edema. Distal PMS is intact. EKG without overt acute ischemia. CXR negative for acute cardiopulmonary process per my personal preliminary review/interpretation. WBC, H/H and platelets normal limits. INR is 4.1, supratherapeutic without evidence of bleeding at this time. Chemistry without metabolic acidosis. Creatinine 1.2, slightly above prior range of values. LFTs unremarkable. Lipase is not elevated. TSH within normal limits. CT of the head, CTL-spine, chest and abdomen pelvis were performed. CT imaging was negative for acute traumatic or acute process otherwise. X-ray of the left shoulder negative for fracture or dislocation. X-ray of the left wrist demonstrates transverse fractures through the distal radial metaphysis with dorsal tilt of the distal portion and fractures to the base of the ulnar styloid. Upon reevaluation patient continued to have no cervical tenderness to palpation and exhibited full range of motion without radicular symptoms. Cervical collar was subsequently cleared. Findings reviewed the patient and family at the bedside. They did express concern about the patient's ability to function at home given her baseline amatory dysfunction as evidenced by her repeated falls today now worsened with her left wrist fracture, her dominant hand. Case was discussed with Kole Alexander, orthopedic surgery LASHANDA, with Dr. Price, orthopedic surgery on-call. Agrees with attempted reduction at the bedside and splinting. Given the patient will be admitted for pain control and PT assessment orthopedics will be available for inpatient team consultation. Reduction and splinting subsequently performed with improved alignment and comfort for the patient. Patient tolerated the procedure well. Case was [facility] Nicole[facility], who will evaluate the patient for admission. Further management per admitting team. Triage Nursing notes reviewed and agree them. Prior/external medical records reviewed Vital Signs: reviewed Differential diagnosis: Fracture, dislocation, contusion, intra-abdominal, pneumothorax, intrathoracic, intracranial, neurologic, compartment syndrome, rhabdomyolysis, as well as other pathologies. ER treatment provided: See below. Diagnostics interpreted by me: ECG: None Cardiac Monitoring: An order for continuous cardiac monitoring was placed and demonstrated Laboratory studies: See below Imaging studies: See below Consultation(s): Kole Alexander, orthopedic surgery LASHANDA, with Dr. Price, orthopedic surgery on- call. [facility] hospital[facility] HPI: Per MDM. ROS: See above HPI for pertinent positives & negatives. A total of 10 systems reviewed and were otherwise negative. VITALS:See Below PHYSICAL EXAMINATION: Primary Survey Airway: Intact Breathing: Normal, breath sounds equal bilaterally Circulation: Skin warm, distal pulses 2+, capillary refill less than 2 seconds Disability Pupils: Equal and reactive to light. GCS: 15, E = 5 V=5 M= 5 Motor Function: Moves all extremities. Sensory: No deficits Secondary Survey GEN: Well developed and well-nourished HEAD: Normocephalic, Minor erythema of the lower forehead without overt contusion or hematoma. EYES: Pupils round reactive to light, conjunctiva clear, extraocular movements intact, no raccoons eyes ENT: No fluid in external acoustic canals, no hemotympanum, no chaparro's sign, nares patent, no septal hematoma, oropharynx clear NECK: No JVD, midline trachea, No midline tenderness to palpation or step-offs. HEART: Regular rate and rhythm LUNGS: Clear to auscultation bilaterally. CHEST: Chest wall non-tender, no bruising/deformity ABD: No Mendosa-Landa's or [place]'s sign, soft, non-tender, no rebound or guarding, PELVIS: Stable to rock BACK: No step offs or deformities, T-L spine non tender EXT: 2+ global pulses, moving all extremities well, +5/5 muscle strength globally. Mild swelling of the left wrist with generalized tenderness. Distal PMS is intact. Mild discomfort of the left AC joint without gross deformity. NEURO: Normal sensorium. Cranial nerves II-XII grossly intact. 5/5 strength and SILT x 4 extremities. ED COURSE: Procedures: Fracture reduction: Patient consented to bedside fracture reduction and splinting. Reduction performed with inline traction using finger traps. Additional manipulation of the dorsally displaced distal radius performed with improved alignment and comfort. Splinting subsequently performed by ED cryptological technician with my assistance. Patient tolerated procedure well. Follow-up x- ray shows improved alignment. Splint Care: After the ortho glass splint was placed by the billing representative, I examined the splint and confirmed proper application/placement/position. Neurovascular status was intact both proximal and distal to the splinted area. Cristian Rod MD Past Med/Surg History Problem List (Updated 03/07/25 @ 06:09 by Cristian Rod MD) On warfarin therapy (Acute) Recurrent falls (Acute) Fracture of left wrist (Acute) Fall down stairs (Acute) Dementia Hypothyroidism Left wrist fracture Fall (on) (from) other stairs and steps, initial encounter Status post placement of cardiac pacemaker Sinus bradycardia seen on monitoring specialist Severe sepsis Fall from standing (Acute) Acute pain of right knee (Acute) Effusion of right knee (Acute) Facial hematoma (Acute) Ambulatory dysfunction (Acute) Fracture, radius, head (Acute) Pulmonary emboli (Acute) Dx 01/2020 Pulmonary embolism, bilateral Lumbar compression fracture Medical History (Updated 03/07/25 @ 06:09 by Cristian Rod MD) Sleep apnea Hyperlipidemia Hypertension Surgical History History of tubal ligation H/O: hysterectomy Family History Mother Colorectal cancer Grandfather (Maternal) Heart disease Social History Smoking Status: Never smoker Second Hand Exposure: No; Do You Dip or Chew Tobacco: No; Hx Alcohol Use: No Hx Substance Use: No Preferred Language: German Communication Ability: Effective Integrated [employer] Programs Director Required: No Beliefs That Will Affect Care: None Current Living Situation: Spouse Feels Safe at Home: Yes Assistive Devices: Cane and Walker Allergies Allergies Allergy/AdvReac Type Severity Reaction Status Date / Time Influenza Virus Vaccines Allergy COULD NOT Verified 05/17/23 00:47 MOVE, FELT TERRIBLE simvastatin [From Zocor] AdvReac Muscle Pain Verified 05/16/23 23:51 Home Meds Home Medications Medication Instructions Recorded Confirmed atorvastatin 40 mg tablet 40 mg PO DAILY 01/15/20 05/16/23 hydrochlorothiazide 25 mg tablet 25 mg PO DAILY 01/15/20 05/16/23 levothyroxine 75 mcg tablet 75 mcg PO DAILY 01/15/20 05/16/23 potassium chloride 20 mEq 20 meq PO BID 01/15/20 05/16/23 tablet,extended release warfarin 3 mg tablet 3 mg PO .6DAYS A WEEK 03/27/20 05/16/23 acetaminophen 325 mg tablet 650 mg PO PC PRN Pain 05/16/23 05/16/23 (Tylenol) cholecalciferol (vitamin D3) 50 50 mcg PO DAILY 05/16/23 05/16/23 mcg (2,000 unit) tablet (Vitamin D3) citalopram 20 mg tablet 20 mg PO DAILY 05/16/23 05/16/23 hydrocortisone acetate 25 mg 25 mg PA HS PRN .. 05/16/23 05/16/23 rectal suppository (Anusol-HC) vit C 250 mg-vit E 90 mg-zinc 40 1 tab PO AMHS 05/16/23 05/16/23 mg-copper 1 [id number] capsule (PreserVision AREDS-2) warfarin 3 mg tablet (Jantoven) 6 mg PO .QMON 05/16/23 05/16/23 Previous Rx's Medication Instructions Recorded lisinopril 2.5 mg tablet 2.5 mg PO QAM #30 tabs 05/20/23 Results & Data (ED) Vital Signs Vital Signs - 24 hr 03/06/25 18:22 03/06/25 18:33 03/06/25 18:34 Temperature 36.6 C Temperature Source Temporal Artery Scan Pulse Rate 70 71 Pulse Rate [Apical] 61 Pulse Strength [Bilateral] Respiratory Rate 18 17 Respiratory Effort / Characteristics Non-Labored Spontaneous Non-Labored Spontaneous Respiratory Depth Normal Normal Respiratory Pattern Regular Blood Pressure 101/65 Blood Pressure [Right Arm] 108/69 Blood Pressure Mean 77 Blood Pressure Mean [Right Arm] 82 Blood Pressure Position Sitting Pulse Oximetry 96 97 Oxygen Delivery Method Room Air Room Air Oxygen Flow Rate Sepsis Recent Fever Within 48 Hours No Sepsis New/Unexplained Change in Mental Status N/A Sepsis Action Taken by Nursing No Action Required 03/06/25 18:35 03/06/25 18:56 03/06/25 19:27 Temperature 36.7 C Temperature Source Pulse Rate 62 Pulse Rate [Apical] 60 61 Pulse Strength [Bilateral] Normal Respiratory Rate 19 18 18 Respiratory Effort / Characteristics Non-Labored Spontaneous Non-Labored Spontaneous Respiratory Depth Normal Normal Respiratory Pattern Regular Blood Pressure 108/69 Blood Pressure [Right Arm] 115/59 L 137/67 Blood Pressure Mean Blood Pressure Mean [Right Arm] 77 90 Blood Pressure Position Pulse Oximetry 97 96 96 Oxygen Delivery Method Room Air Room Air Room Air Oxygen Flow Rate 0 Sepsis Recent Fever Within 48 Hours Sepsis New/Unexplained Change in Mental Status Sepsis Action Taken by Nursing 03/06/25 20:00 03/06/25 20:30 03/06/25 21:00 Temperature 36.9 C Temperature Source Oral Pulse Rate 60 Pulse Rate [Apical] 60 61 Pulse Strength [Bilateral] Respiratory Rate 18 16 16 Respiratory Effort / Characteristics Non-Labored Spontaneous Non-Labored Respiratory Depth Normal Normal Respiratory Pattern Regular Regular Blood Pressure 122/63 Blood Pressure [Right Arm] 132/76 119/65 Blood Pressure Mean 73 Blood Pressure Mean [Right Arm] 94 83 Blood Pressure Position Pulse Oximetry 98 98 99 Oxygen Delivery Method Room Air Room Air Oxygen Flow Rate Sepsis Recent Fever Within 48 Hours Sepsis New/Unexplained Change in Mental Status Sepsis Action Taken by Nursing 03/06/25 21:23 03/06/25 22:00 03/06/25 22:00 Temperature Temperature Source Pulse Rate 60 60 Pulse Rate [Apical] 60 Pulse Strength [Bilateral] Respiratory Rate 20 16 15 Respiratory Effort / Characteristics Non-Labored Respiratory Depth Normal Respiratory Pattern Regular Blood Pressure 119/65 133/69 Blood Pressure [Right Arm] 133/69 Blood Pressure Mean 93 82 Blood Pressure Mean [Right Arm] 90 Blood Pressure Position Pulse Oximetry 100 98 99 Oxygen Delivery Method Room Air Oxygen Flow Rate Sepsis Recent Fever Within 48 Hours Sepsis New/Unexplained Change in Mental Status Sepsis Action Taken by Nursing Laboratory Data Attestation: I reviewed the patient's lab results. 03/06/25 18:43 03/06/25 18:43 Lab Results 03/06/25 03/06/25 03/06/25 Range/Units 18:42 18:43 19:55 WBC 8.49 (4.8-10.8) K/ul RBC 4.20 (4.20-5.40) M/uL Hgb 13.0 (12.0-16.0) g/dl POC Hgb 13.6 (12.0-16.0) g/dl Hct 39.5 (37.0-47.0) % POC Hct 40 (37-47) % MCV 94.0 (80.0-100.0) fL MCH 31.0 (25.0-34.0) pg MCHC 32.9 (32.0-36.0) g/dL RDW Std Deviation 49.5 H (36.4-46.3) fL RDW Coeff of Anyi 14.4 (11.5-14.5) % Plt Count 234 (130-400) K/uL MPV 10.5 (9.4-12.4) fL Immature Gran % (Auto) 0.5 % Neut % (Auto) 54.2 % Lymph % (Auto) 27.7 % Rains % (Auto) 11.2 % Eos % (Auto) 5.3 % Baso % (Auto) 1.1 % Neut # (Auto) 4.61 (1.40-6.50) K/uL Lymph # (Auto) 2.35 (1.20-3.40) K/uL Rains # (Auto) 0.95 H (0.11-0.59) K/uL Eos # (Auto) 0.45 (0.00-0.50) K/uL Baso # (Auto) 0.09 (0.00-0.20) K/uL Immature Gran # (Auto) 0.04 (0.01-0.20) K/uL PT Cancelled 39.0 H INR Cancelled 4.1 H APTT Cancelled 39 H PTT Ratio Cancelled 1.4 POC Sodium 141 (135-144) mmol/L Sodium 139 (136-145) mmol/L POC Potassium 3.8 (3.3-5.0) mmol/L Potassium 4.2 (3.5-5.1) mmol/L POC Chloride 106 (101-112) mmol/L Chloride 107 (98-107) mmol/L Carbon Dioxide 24 (21-32) mmol/L POC Total CO2 22 L (24-31) mmol/L Anion Gap 8 (3-11) POC Anion Gap 18.0 (16-25) mmol/L POC BUN 22 H (7-18) mg/dl BUN 21 (6-23) mg/dl Creatinine 1.23 H (0.6-1.2) mg/dl POC Creatinine 1.2 (0.6-1.3) mg/dl Est Cr Clr Drug Dosing 35.5 ml/min eGFR 43.60 BUN/Creatinine Ratio 17.1 (10-20) Glucose 137 H (70-99(Fasting)) mg/dl POC Glucose (other) 136 H (70-99) mg/dl Calcium 9.0 (8.6-10.3) mg/dl POC Ioniz Calcium Almas 1.12 (1.12-1.32) mmol/l Magnesium 1.8 (1.7-2.4) mg/dl Total Bilirubin 0.6 (0.2-1.0) mg/dl AST 34 (13-39) U/L ALT 29 (7-52) U/L Alkaline Phosphatase 89 (34-104) U/L Total Protein 6.8 (6.0-8.3) gm/dl Albumin 3.7 (3.4-5.0) gm/dl Globulin 3.1 (2.5-4.0) gm/dl Albumin/Globulin Ratio 1.2 (0.9-2) Lipase 79 (11-82) U/L TSH 1.706 (0.300-4.500) uIu/ml Administered Medications Acetaminophen (Acetaminophen 500 Mg Tab) 1,000 mg PO Q8 JAILYN Stop: 04/06/25 05:59 Last Admin: 03/07/25 05:41 Dose: 1,000 mg Documented By: LOUIS Lactated Ringer's (Lr) 1,000 mls @ 80 mls/hr IV .[id number] JAILYN Stop: 03/07/25 07:00 Last Admin: 03/07/25 00:30 Dose: 80 mls/hr Documented By: LOUIS Levothyroxine Sodium (Levothyroxine Sodium 75 Mcg Tablet) 75 mcg PO DAILYBB [facility] Stop: 04/06/25 06:29 Last Admin: 03/07/25 05:41 Dose: 75 mcg Documented By: LOUIS Discontinued Medications Sodium Chloride (Nss) 500 mls @ 999 mls/hr IV .Q31M ONE Stop: 03/06/25 19:14 Last Infusion: 03/06/25 20:06 Dose: Infused Documented By: Admin: 03/06/25 19:19 Dose: 999 mls/hr Documented By: DENI Acetaminophen (Ofirmev) 1,000 mg in 100 mls @ 400 mls/hr IV NOW STA Stop: 03/06/25 18:58 Last Infusion: 03/06/25 20:06 Dose: Infused Documented By: Admin: 03/06/25 19:19 Dose: 400 mls/hr Documented By: DENI Lactated Ringer's (Lr) 500 mls @ 999 mls/hr IV .Q31M ONE Stop: 03/07/25 01:08 Last Infusion: 03/07/25 01:13 Dose: Infused Documented By: Admin: 03/07/25 00:42 Dose: 999 mls/hr Documented By: LOUIS Morphine Sulfate (Morphine Sulfate 2 Mg/Ml Carp) 2 mg IV NOW STA Stop: 03/06/25 21:53 Last Admin: 03/06/25 22:09 Dose: 2 mg Documented By: ASIA Imaging Data Radiologist's Impression: Shoulder X-Ray 03/06/25 18:41 Study: Left shoulder3 views History: Pain Comparison: None Findings: There is no acute fracture or dislocation. Alignment is anatomic. Joint spaces are well maintained. There is no joint effusion or significant soft tissue swelling. Bone mineralization is normal. Impression: No acute bony abnormality Electronically signed by Tad Roberson 03-06-2025 7:57 PM Wrist X-Ray 03/06/25 18:41 Study: Left wrist 5 views History: Fall Comparison: None Findings/impression: Transverse fracture through the distal radial metaphysis, with dorsal tilt of the distal portion. There is a fracture through the base of the ulnar styloid. Generalized soft tissue swelling about the wrist. Bone mineralization is decreased. Electronically signed by Tad Roberson 03-06-2025 7:57 PM Abdomen/Pelvis CT 03/06/25 18:42 CT ABDOMEN and PELVIS with INTRAVENOUS CONTRAST HISTORY: Abdominal pain following trauma TECHNIQUE: CT abdomen and pelvis with contrast. IV CONTRAST: 100 mL of OMNIPAQUE 300 ENTERIC CONTRAST: Not Given COMPARISON: CT abdomen pelvis 2019 FINDINGS: LIVER: Left hepatic lobe 1.7 cm hypodensity is probably a hemangioma GALLBLADDER/BILIARY: Unremarkable gallbladder. No abnormal biliary dilatation. SPLEEN: Unremarkable. PANCREAS: Unremarkable. ADRENALS: Unremarkable. KIDNEYS: Unremarkable. No stones or hydronephrosis identified. PERITONEUM/RETROPERITONEUM. No lymphadenopathy by size criteria. No aortic aneurysm. Moderate atherosclerosis GASTROINTESTINAL: No obstruction. REPRODUCTIVE: Status post hysterectomy. URINARY BLADDER: Unremarkable. BONES: No acute findings. IMPRESSION: No evidence of acute trauma to the abdomen or the pelvis. Electronically signed by Jah Galdamez 03-06-2025 8:[address] 03/06/25 18:42 CT CERVICAL SPINE WITHOUT CONTRAST: HISTORY: PAIN TECHNIQUE: Noncontrast CT examination of the cervical spine is performed. Coronal and sagittal reformats were created. COMPARISON: None. FINDINGS: CERVICAL SPINE: There is no significant vertebral body height loss. No acute traumatic fracture identified. There is no significant spondylolisthesis. Multilevel degenerative changes characterized by disc osteophyte complex, bilateral facet and uncovertebral hypertrophy resulting and neural foraminal narrowing at multiple levels, worst at mid to lower spine Visualized soft tissues of neck are unremarkable. Visualized lung apex is clear. IMPRESSION: No acute traumatic fracture of the cervical thoracic lumbar spine. Multilevel degenerative changes as above Electronically signed by Jah Galdamez 03-06-2025 7:[address] 03/06/25 18:42 CT CHEST WITH CONTRAST: HISTORY: TRAUMA TECHNIQUE: CT of the chest was obtained with intravenous contrast. Coronal and sagittal reformats were created. IV CONTRAST: 100 mL of OMNIPAQUE 300 COMPARISON: Thoracic CT January 15, 2020. FINDINGS: LOWER NECK: Normal thyroid. LYMPH NODES: A few small nonenlarged lymph nodes in the mediastinum. No lymphadenopathy by size criteria. CARDIOVASCULAR: Cardiac size is enlarged. Coronary artery and valvular calcifications are noted. No aortic aneurysm. LUNGS: The trachea and central bronchi are widely patent. No focal confluent infiltrates are seen. Multiple scattered subcentimeter groundglass density pulmonary nodules are identified again. Similar findings are as noted in the 2020 examination. PLEURA: There are no pleural effusions. There is no pneumothorax. UPPER ABDOMEN: No acute findings. OSSEOUS STRUCTURES: No acute findings IMPRESSION: No evidence of acute trauma to the thorax. Multiple scattered subcentimeter groundglass density pulmonary nodules are identified again. Similar findings are as noted in the 2020. This may be due to chronic small airways disease/bronchiolitis. Electronically signed by Jah Galdamez 03-06-2025 8:08 PM Chest X-Ray 03/06/25 18:42 Chest radiograph, one view History: Chest pain Comparison: None Findings: Single AP view of the chest performed. No focal consolidation or pleural effusion. No pneumothorax. Left chest wall dual-lead AICD. The cardiomediastinal silhouette is within normal limits. Normal pulmonary vascularity. No evidence for lymphadenopathy. No visualized bony or soft tissue abnormality. Impression: Normal chest radiograph Electronically signed by Tad Roberson 03-06-2025 7:[address] 03/06/25 18:42 CT HEAD: HISTORY: Trauma TECHNIQUE: Noncontrast CT examination of the head is performed. Coronal and sagittal reformats were created. COMPARISON: MRI of the brain January 25, 2025 FINDINGS: There is no evidence of intracranial hemorrhage, focal mass effect or midline shift. No fluid collection is identified. The ventricular system is midline and symmetric. No evidence of acute major vascular territory infarction. Age-related involutional changes of brain and chronic white matter ischemic changes. The ventricles are enlarged to a degree that is out of proportion to the surrounding cerebral volume loss. Redemonstrated calcified meningioma measuring 2.0 cm overlying the right parietal lobe. No calvarial fracture is identified. The paranasal sinuses and mastoids are well aerated. Right frontal scalp contusion. IMPRESSION: No acute intracranial process identified. 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 Coronal and sagittal reformats were created. COMPARISON: Lumbar spine radiograph August 25, 2019. FINDINGS: LUMBAR SPINE: Redemonstrated compression fracture of L2 vertebral body without significant change from 2020 x-ray examination, chronic. No significant retropulsion. No acute traumatic fracture identified. Unchanged mild grade 1 anterolisthesis of L4 and L5. Usual lumbar lordosis is preserved. Multilevel degenerative changes characterized by disc space loss, broad based disc bulge/herniations with endplate changes of the vertebral bodies with small marginal osteophytes as well as bilateral facet hypertrophy and thickening of the ligamentum flavum resulting in crowding of the subarticular recesses and narrowing of neural foramina worst at L4-S1. IMPRESSION: No acute traumatic fracture of the lumbar spine. Chronic compression fracture of L2 vertebral body without significant retropulsion. Multilevel degenerative changes as above Electronically signed by Jah Galdamez 03-06-2025 7:[address] 03/06/25 18:42 CT THORACIC SPINE WITHOUT CONTRAST: HISTORY: TRAUMA TECHNIQUE: Noncontrast CT examination of the thoracic spine is performed. Coronal and sagittal reformats were created. COMPARISON: FINDINGS: THORACIC SPINE: There is no significant vertebral body height loss. No acute traumatic fracture identified. There is no significant spondylolisthesis. Usual thoracic kyphosis is preserved. Multilevel degenerative changes characterized by disc space loss with endplate changes of the vertebral bodies with small marginal osteophytes. Visualized lungs are clear. IMPRESSION: No acute traumatic fracture of the thoracic spine. Multilevel degenerative changes as above Electronically signed by Jah Galdamez 03-06-2025 7:48 PM Discharge Plan Visit Data Chief Complaint: Trauma Stated Complaint: FELL DOWN STEPS, HEAD, WRIST LT SIDE ED Provider: Cristian Rod Discharge Problem: Fall down stairs, Fracture of left wrist, Recurrent falls, On warfarin therapy, Ambulatory dysfunction Patient Disposition: Admitted As Inpatient Condition: Fair Discharge Instructions Interventions: ED Discharge Assessment Last Done: 03/06/25 23:56 Discharge Problem: Fall down stairs Qualifiers: Encounter type: initial encounter Qualified Code(s): W10.8XXA - Fall (on) (from) other stairs and steps, initial encounter Fracture of left wrist Qualifiers: Encounter type: initial encounter Fracture type: closed Qualified Code(s): S 62.102A - Fracture of unspecified carpal bone, left wrist, initial encounter for closed fracture
[2025-03-06 19:05] LABS: Hematocrit (blood only) 39.5 % (37.0-47.0); Hemoglobin 13.0 g/dl (12.0-16.0); Immature Granulocytes # (auto) 0.04 K/uL (0.01-0.20); Immature Granulocytes % (auto) 0.5 %; Mean Corpuscular Hemoglobin 31.0 pg (25.0-34.0); Mean Corpuscular Volume 94.0 fL (80.0-100.0); Platelet Count 234 K/uL (130-400); RDW Standard Deviation 49.5 fL (36.4-46.3); Red Blood Count 4.20 M/uL (4.20-5.40); White Blood Count 8.49 K/ul (4.8-10.8)
[2025-03-06] MEDS: ACETAMINOPHEN 1,000 MG/100 ML VIAL IV STA (19:19)
[2025-03-06] MEDS: SODIUM CHLORIDE 0.9% 500 ML IV ONE (19:19)
[2025-03-06 19:23] LABS: Alanine Aminotransferase 29.0 U/L (7-52); Albumin Globulin Ratio 1.2 (0.9-2); Alkaline Phosphatase 89.0 U/L (34-104); Anion Gap 8.0 (3-11); Bilirubin,Total 0.6 mg/dl (0.2-1.0); Blood Urea Nitrogen 21.0 mg/dl (6-23); Calcium 9.0 mg/dl (8.6-10.3); Carbon Dioxide 24.0 mmol/L (21-32); Chloride 107.0 mmol/L (98-107); Creatinine Clr Calc Pharmacy 35.5 ml/min; Globulin 3.1 gm/dl (2.5-4.0); Glucose 137.0 mg/dl (70-99(Fasting)); Lipase 79.0 U/L (11-82); Magnesium 1.8 mg/dl (1.7-2.4); Potassium 4.2 mmol/L (3.5-5.1); Sodium 139.0 mmol/L (136-145); Total Protein 6.8 gm/dl (6.0-8.3)
--- NOTE | 2025-03-06 19:43 | CT Scan Report ---
CT HEAD: HISTORY: Trauma TECHNIQUE: Noncontrast CT examination of the head is performed. Coronal and sagittal reformats were created. COMPARISON: MRI of the brain January 25, 2025 FINDINGS: There is no evidence of intracranial hemorrhage, focal mass effect or midline shift. No fluid collection is identified. The ventricular system is midline and symmetric. No evidence of acute major vascular territory infarction. Age-related involutional changes of brain and chronic white matter ischemic changes. The ventricles are enlarged to a degree that is out of proportion to the surrounding cerebral volume loss. Redemonstrated calcified meningioma measuring 2.0 cm overlying the right parietal lobe. No calvarial fracture is identified. The paranasal sinuses and mastoids are well aerated. Right frontal scalp contusion. IMPRESSION: No acute intracranial process identified. 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
--- NOTE | 2025-03-06 19:44 | CT Scan Report ---
CT LUMBAR SPINE WITHOUT CONTRAST: HISTORY: TRAUMA TECHNIQUE: Noncontrast CT examination of the lumbar spine is performed. Coronal and sagittal reformats were created. COMPARISON: Lumbar spine radiograph August 25, 2019. FINDINGS: LUMBAR SPINE: Redemonstrated compression fracture of L2 vertebral body without significant change from 2020 x-ray examination, chronic. No significant retropulsion. No acute traumatic fracture identified. Unchanged mild grade 1 anterolisthesis of L4 and L5. Usual lumbar lordosis is preserved. Multilevel degenerative changes characterized by disc space loss, broad based disc bulge/herniations with endplate changes of the vertebral bodies with small marginal osteophytes as well as bilateral facet hypertrophy and thickening of the ligamentum flavum resulting in crowding of the subarticular recesses and narrowing of neural foramina worst at L4-S1. IMPRESSION: No acute traumatic fracture of the lumbar spine. Chronic compression fracture of L2 vertebral body without significant retropulsion. Multilevel degenerative changes as above Electronically signed by Jah Galdamez 03-06-2025 7:42 PM
--- NOTE | 2025-03-06 19:44 | CT Scan Report ---
CT CERVICAL SPINE WITHOUT CONTRAST: HISTORY: PAIN TECHNIQUE: Noncontrast CT examination of the cervical spine is performed. Coronal and sagittal reformats were created. COMPARISON: None. FINDINGS: CERVICAL SPINE: There is no significant vertebral body height loss. No acute traumatic fracture identified. There is no significant spondylolisthesis. Multilevel degenerative changes characterized by disc osteophyte complex, bilateral facet and uncovertebral hypertrophy resulting and neural foraminal narrowing at multiple levels, worst at mid to lower spine Visualized soft tissues of neck are unremarkable. Visualized lung apex is clear. IMPRESSION: No acute traumatic fracture of the cervical thoracic lumbar spine. Multilevel degenerative changes as above Electronically signed by Jah Galdamez 03-06-2025 7:42 PM
--- NOTE | 2025-03-06 19:48 | CT Scan Report ---
CT THORACIC SPINE WITHOUT CONTRAST: HISTORY: TRAUMA TECHNIQUE: Noncontrast CT examination of the thoracic spine is performed. Coronal and sagittal reformats were created. COMPARISON: FINDINGS: THORACIC SPINE: There is no significant vertebral body height loss. No acute traumatic fracture identified. There is no significant spondylolisthesis. Usual thoracic kyphosis is preserved. Multilevel degenerative changes characterized by disc space loss with endplate changes of the vertebral bodies with small marginal osteophytes. Visualized lungs are clear. IMPRESSION: No acute traumatic fracture of the thoracic spine. Multilevel degenerative changes as above Electronically signed by Jah Galdamez 03-06-2025 7:48 PM
--- NOTE | 2025-03-06 19:57 | XRay Report ---
Study: Left shoulder3 views History: Pain Comparison: None Findings: There is no acute fracture or dislocation. Alignment is anatomic. Joint spaces are well maintained. There is no joint effusion or significant soft tissue swelling. Bone mineralization is normal. Impression: No acute bony abnormality Electronically signed by Tad Roberson 03-06-2025 7:57 PM
--- NOTE | 2025-03-06 19:59 | XRay Report ---
Study: Left wrist 5 views History: Fall Comparison: None Findings/impression: Transverse fracture through the distal radial metaphysis, with dorsal tilt of the distal portion. There is a fracture through the base of the ulnar styloid. Generalized soft tissue swelling about the wrist. Bone mineralization is decreased. Electronically signed by Tad Roberson 03-06-2025 7:57 PM
--- NOTE | 2025-03-06 19:59 | XRay Report ---
Chest radiograph, one view History: Chest pain Comparison: None Findings: Single AP view of the chest performed. No focal consolidation or pleural effusion. No pneumothorax. Left chest wall dual-lead AICD. The cardiomediastinal silhouette is within normal limits. Normal pulmonary vascularity. No evidence for lymphadenopathy. No visualized bony or soft tissue abnormality. Impression: Normal chest radiograph Electronically signed by Tad Roberson 03-06-2025 7:57 PM
--- NOTE | 2025-03-06 20:09 | CT Scan Report ---
CT ABDOMEN and PELVIS with INTRAVENOUS CONTRAST HISTORY: Abdominal pain following trauma TECHNIQUE: CT abdomen and pelvis with contrast. IV CONTRAST: 100 mL of OMNIPAQUE 300 ENTERIC CONTRAST: Not Given COMPARISON: CT abdomen pelvis 2020 FINDINGS: LIVER: Left hepatic lobe 1.7 cm hypodensity is probably a hemangioma GALLBLADDER/BILIARY: Unremarkable gallbladder. No abnormal biliary dilatation. SPLEEN: Unremarkable. PANCREAS: Unremarkable. ADRENALS: Unremarkable. KIDNEYS: Unremarkable. No stones or hydronephrosis identified. PERITONEUM/RETROPERITONEUM. No lymphadenopathy by size criteria. No aortic aneurysm. Moderate atherosclerosis GASTROINTESTINAL: No obstruction. REPRODUCTIVE: Status post hysterectomy. URINARY BLADDER: Unremarkable. BONES: No acute findings. IMPRESSION: No evidence of acute trauma to the abdomen or the pelvis. Electronically signed by Jah Galdamez 03-06-2025 8:08 PM
--- NOTE | 2025-03-06 20:09 | CT Scan Report ---
CT CHEST WITH CONTRAST: HISTORY: TRAUMA TECHNIQUE: CT of the chest was obtained with intravenous contrast. Coronal and sagittal reformats were created. IV CONTRAST: 100 mL of OMNIPAQUE 300 COMPARISON: Thoracic CT January 15, 2020. FINDINGS: LOWER NECK: Normal thyroid. LYMPH NODES: A few small nonenlarged lymph nodes in the mediastinum. No lymphadenopathy by size criteria. CARDIOVASCULAR: Cardiac size is enlarged. Coronary artery and valvular calcifications are noted. No aortic aneurysm. LUNGS: The trachea and central bronchi are widely patent. No focal confluent infiltrates are seen. Multiple scattered subcentimeter groundglass density pulmonary nodules are identified again. Similar findings are as noted in the 2020 examination. PLEURA: There are no pleural effusions. There is no pneumothorax. UPPER ABDOMEN: No acute findings. OSSEOUS STRUCTURES: No acute findings IMPRESSION: No evidence of acute trauma to the thorax. Multiple scattered subcentimeter groundglass density pulmonary nodules are identified again. Similar findings are as noted in the 2020. This may be due to chronic small airways disease/bronchiolitis. Electronically signed by Jah Galdamez 03-06-2025 8:08 PM
[2025-03-06 21:23] LABS: INR 4.1 (0.9-1.1); Partial Thromboplastin Time 39 Seconds (21-31); Prothrombin Time 39.0 Seconds (9.0-12.0)
[2025-03-06] MEDS: MoRPHine SULFATE 2 MG/ML CARP IV STA (22:09)
[2025-03-06 22:42] LABS: Thyroid Stimulating Hormone 1.706 uIu/ml (0.300-4.500)
--- NOTE | 2025-03-06 23:36 | History & Physical Report ---
Date of Service March 06, 2025 Assessment & Plan (1) Fall (on) (from) other stairs and steps, initial encounter: Plan: -2 falls today with some trauma, left wrist fracture on imaging -per patient appears mechanical in nature due to leg weakness, however has pacem farnaz so differential must be considered -differential includes orthostatic hypotension, arrythmia, less likely stroke or other process Plan: -med tele admission -pacemaker interrogation ordered -PT/OT ordered -ortho consult for left wrist fracture, appreciate recs -orthostatic vitals ordered, hold BP meds for now, check echo -gentle maintenance fluids ordered (2) Left wrist fracture: Plan: -see above -in splint at this time (3) Status post placement of cardiac pacemaker: Plan: -see above (4) Pulmonary embolism, bilateral: Plan: -hold warfarin given supertheraeputic, consider resuming tomorrow night (did not order) -schedule per patient is warfarin 3mg except M/W then 4.5mg (5) Sleep apnea: Plan: -CPAP ordered (6) Hypothyroidism: Plan: -continue home levothyroxine -TSH WNL (7) Dementia: Plan: -continue home citalopram -ativan 0.5mg HS chronically Plan I spent a total of 80 minutes in direct patient care, including [id number] [id number] with the patient and/or family, reviewing medical records, ordering and reviewing diagnostic tests, and coordinating care with other healthcare providers. This time includes: history taking, physical examination, medical decision making, counseling, ECG interpretation, imaging interpretation, lab interpretation, orders, and education, excluding time spent in the performance of separately billed services. History of Present Illness Chief Complaint: -fall Primary Care Provider: Мария Littlejohn, 84 yo female with pmhx of hypertension, hyperlipidemia, PE on Coumadin, CON on CPAP, hypothyroidism, anxiety/mood disorder, tremors who presents for recurrent falls at home. Last admission in 2022 for bilateral PEs. In the ED, was seen earlier today for falls, sent home and came back after bigger fall, INR supertherapeutic, imaging workup revealing left radius/ulnar fracture and touched base with ortho, creatinine above baseline, splinted in ED, admitted to medicine for further workup. Patient seen and examined at bedside. Patient doing ok today, states her legs gave out on her going up stairs, lives with her family. Did not get lightheaded or have prodromal symptoms. Does feel she has been getting weaker over the past few months. Has pacemaker, did not have palpitations or chest pain at home. Does have some brusing on arms and legs but better than she has had in past. No alcohol use, no tobacco use, no drug use, DNRDNI discussed with patient and family. Allergies Allergy/AdvReac Type Severity Reaction Status Date / Time Influenza Virus Vaccines Allergy COULD NOT Verified 05/17/23 00:47 MOVE, FELT TERRIBLE simvastatin [From Zocor] AdvReac Muscle Pain Verified 05/16/23 23:51 Home Medications Medication Instructions Recorded Confirmed Type atorvastatin 40 mg tablet 40 mg PO DAILY 01/15/20 05/16/23 History hydrochlorothiazide 25 mg tablet 25 mg PO DAILY 01/15/20 05/16/23 History levothyroxine 75 mcg tablet 75 mcg PO DAILY 01/15/20 05/16/23 History potassium chloride 20 mEq 20 meq PO BID 01/15/20 05/16/23 History tablet,extended release warfarin 3 mg tablet 3 mg PO .6DAYS A WEEK 03/27/20 05/16/23 History acetaminophen 325 mg tablet 650 mg PO PC PRN Pain 05/16/23 05/16/23 History (Tylenol) cholecalciferol (vitamin D3) 50 50 mcg PO DAILY 05/16/23 05/16/23 History mcg (2,000 unit) tablet (Vitamin D3) citalopram 20 mg tablet 20 mg PO DAILY 05/16/23 05/16/23 History hydrocortisone acetate 25 mg 25 mg DC HS PRN .. 05/16/23 05/16/23 History rectal suppository (Anusol-HC) vit C 250 mg-vit E 90 mg-zinc 40 1 tab PO AMHS 05/16/23 05/16/23 History mg-copper 1 [id number] capsule (PreserVision AREDS-2) warfarin 3 mg tablet (Jantoven) 6 mg PO .QMON 05/16/23 05/16/23 History lisinopril 2.5 mg tablet 2.5 mg PO QAM #30 tabs 05/20/23 Rx Past Med/Surg History Problem List (Updated 03/06/25 @ 23:49 by Thierry Nicole MD) Dementia Hypothyroidism Left wrist fracture Fall (on) (from) other stairs and steps, initial encounter Status post placement of cardiac pacemaker Sinus bradycardia seen on color television console monitor Severe sepsis Fall from standing (Acute) Acute pain of right knee (Acute) Effusion of right knee (Acute) Facial hematoma (Acute) Ambulatory dysfunction (Acute) Fracture, radius, head (Acute) Pulmonary emboli (Acute) Dx 01/2020 Pulmonary embolism, bilateral Lumbar compression fracture Medical History (Updated 03/06/25 @ 23:49 by Thierry Nicole MD) Sleep apnea Hyperlipidemia Hypertension Surgical History History of tubal ligation H/O: hysterectomy Family History Mother Colorectal cancer Grandfather (Maternal) Heart disease Social History Smoking Status: Never smoker Second Hand Exposure: No; Do You Dip or Chew Tobacco: No; Hx Alcohol Use: No Hx Substance Use: No Preferred Language: Turkmen Communication Ability: Effective Chemistry Teacher Required: No Beliefs That Will Affect Care: None Current Living Situation: Spouse Feels Safe at Home: Yes Assistive Devices: CPAP and Walker Review of Systems Review of Systems: -negative unless listed above Physical Exam Physical Exam: Gen: A&O 3 NAD HEENT: NCAT, EOMI, not icteric. External ears normal. No rhinorrhea. Moist mucous membranes. Neck: Supple, full range of motion, no observable masses, No meningeal sign. Lungs: No Respiratory distress. CV: RRR, no edema. Abdomen: Soft, nondistended, No rebound tenderness. MSK: left hand in traction prior to splinting, bruising on forehead, left wrist, scattered ecchymoses noted Skin: see above Neuro: Normal Gait, Grossly intact. Psych: Appropriate for situation. Results & Data Results & Data Vital Signs (Past 12 Hours) Vital Signs Temp Pulse Pulse Resp BP BP Pulse Ox 03/06/25 23:00 67 16 118/68 95 03/06/25 22:34 60 03/06/25 22:30 60 15 121/70 97 03/06/25 22:00 60 15 133/69 99 03/06/25 22:00 60 16 133/69 98 03/06/25 21:23 60 20 119/65 100 03/06/25 21:00 36.9 C 61 16 119/65 99 03/06/25 20:30 60 16 122/63 98 03/06/25 20:00 60 18 132/76 98 03/06/25 19:27 61 18 137/67 96 03/06/25 18:56 60 18 115/59 L 96 03/06/25 18:35 36.7 C 62 19 108/69 97 03/06/25 18:34 71 03/06/25 18:33 61 17 108/69 97 03/06/25 18:22 36.6 C 70 18 101/65 96 O2 Del Method O2 Flow Rate 03/06/25 23:00 Room Air 03/06/25 22:34 03/06/25 22:30 03/06/25 22:00 03/06/25 22:00 Room Air 03/06/25 21:23 03/06/25 21:00 Room Air 03/06/25 20:30 03/06/25 20:00 Room Air 03/06/25 19:27 Room Air 03/06/25 18:56 Room Air 03/06/25 18:35 Room Air 0 03/06/25 18:34 03/06/25 18:33 Room Air 03/06/25 18:22 Room Air Laboratory Results -personally reviewed, creatinine above baseline, INR 4.1 supertherapeutic Code Status & VTE Plan Code Status -DNRDNI, discussed with patient and family
--- NOTE | 2025-03-07 00:11 | XRay Report ---
Exam(s): XR LEFT WRIST, 3+ views EXAM: XR Left Wrist Complete, 3 or More Views CLINICAL HISTORY: Reason for exam: post reduction/splint. TECHNIQUE: Frontal, lateral and oblique views of the left wrist. COMPARISON: No relevant prior studies available. FINDINGS: Bones/joints: Comminuted displaced intra-articular fracture of the distal radius. Minimally displaced ulnar styloid fracture. Overlying cast material somewhat obscures bony detail. No dislocation. Soft tissues: Unremarkable. No radiopaque foreign body. IMPRESSION: As above Electronically signed by: Kole Jeffries MD 03/07/25 00:10 AM
[2025-03-07] MEDS ORDERED: ONDANSETRON INJ 2 MG/ML 2 ML VIAL IV PRN (00:24)
[2025-03-07] MEDS ORDERED: POLYETHYLENE (MIRALAX) 17 GM PACK PO PRN (00:24)
[2025-03-07] MEDS ORDERED: HYDROmorphone INJ 0.5 MG/0.5 ML SYR IV PRN (00:24)
[2025-03-07] MEDS: LACTATED RINGER'S 1,000 ML IV SCH (00:30)
[2025-03-07] MEDS: LACTATED RINGER'S 500 ML IV ONE (00:42)
[2025-03-07] MEDS: ACETAMINOPHEN 500 MG TAB PO SCH (05:41)
[2025-03-07] MEDS: LEVOTHYROXINE SODIUM 75 MCG TABLET PO SCH (05:41)
[2025-03-07] MEDS: ATORVASTATIN 40 MG TAB PO SCH (07:47)
[2025-03-07] MEDS: CITALOPRAM 20 MG TAB PO SCH (07:47)
--- NOTE | 2025-03-07 10:10 | Orthopedic Consultation ---
Date of Service March 07, 2025 Assessment & Plan (1) Fracture of left wrist: * Case/imaging reviewed and discussed with Dr Price * Recommend closed treatment of left distal radius fracture * Fracture with continued volar displacement however given age and activity and it is reasonable to immobilize and monitor * Maintain splint * NWB LUE, platform walker okay if needed * Disposition: TBD * Daily treatment: Physical Therapy/ Occupational Therapy per protocol * Weight bearing status: NWB LUE * Pain control * Remainder care per primary team * Will follow peripherally, office follow-up for repeat x-ray approximately 2 weeks History of Present Illness Reason for Consultation: Left wrist pain Requesting Physician: . Attending Physician: Da Terrell MD . Patient is a 84y/o female with left wrist pain. PMH including chronic PE on Coumadin, dementia, hypothyroidism, sinus bradycardia with pacemaker, HLD, HTN. Presents to hospital with left wrist pain after a fall. Per patient she lost her balance and fell down her steps injuring the left wrist. Prior to this she had noted lightheadedness, shaking, and unsteadiness. Found to have significant static hypotension upon presentation to ED. Regarding left wrist, pain and deformity following a fall. Current workup including x-ray left wrist demonstrating displaced distal radius fracture. Reduction and splinting performed by ED team. Admitted to hospital medicine team for syncopal workup. Orthopedics consulted for management recommendations. At time of exam patient sitting comfortably bed, no acute distress. Endorses mild pain to left wrist at rest that increases with movement of the arm. Denies tingling or numbness of the hand or fingers.. Allergies Allergy/AdvReac Type Severity Reaction Status Date / Time Influenza Virus Vaccines Allergy COULD NOT Verified 05/17/23 00:47 MOVE, FELT TERRIBLE simvastatin [From Zocor] AdvReac Muscle Pain Verified 05/16/23 23:51 Home Medications Medication Instructions Recorded Confirmed Type atorvastatin 40 mg tablet 40 mg PO DAILY 01/15/20 05/16/23 History hydrochlorothiazide 25 mg tablet 25 mg PO DAILY 01/15/20 05/16/23 History levothyroxine 75 mcg tablet 75 mcg PO DAILY 01/15/20 05/16/23 History potassium chloride 20 mEq 20 meq PO BID 01/15/20 05/16/23 History tablet,extended release warfarin 3 mg tablet 3 mg PO .6DAYS A WEEK 03/27/20 05/16/23 History acetaminophen 325 mg tablet 650 mg PO PC PRN Pain 05/16/23 05/16/23 History (Tylenol) cholecalciferol (vitamin D3) 50 50 mcg PO DAILY 05/16/23 05/16/23 History mcg (2,000 unit) tablet (Vitamin D3) citalopram 20 mg tablet 20 mg PO DAILY 05/16/23 05/16/23 History hydrocortisone acetate 25 mg 25 mg MI HS PRN .. 05/16/23 05/16/23 History rectal suppository (Anusol-HC) vit C 250 mg-vit E 90 mg-zinc 40 1 tab PO AMHS 05/16/23 05/16/23 History mg-copper 1 gl-gygyki-adlabr capsule (PreserVision AREDS-2) warfarin 3 mg tablet (Jantoven) 6 mg PO .QMON 05/16/23 05/16/23 History lisinopril 2.5 mg tablet 2.5 mg PO QAM #30 tabs 05/20/23 Rx Past Med/Surg History Problem List (Updated 03/07/25 @ 06:09 by Cristian Rod MD) On warfarin therapy (Acute) Recurrent falls (Acute) Fracture of left wrist (Acute) Fall down stairs (Acute) Dementia Hypothyroidism Left wrist fracture Fall (on) (from) other stairs and steps, initial encounter Status post placement of cardiac pacemaker Sinus bradycardia seen on cardiac monitor technician Severe sepsis Fall from standing (Acute) Acute pain of right knee (Acute) Effusion of right knee (Acute) Facial hematoma (Acute) Ambulatory dysfunction (Acute) Fracture, radius, head (Acute) Pulmonary emboli (Acute) Dx 01/2020 Pulmonary embolism, bilateral Lumbar compression fracture Medical History (Updated 03/07/25 @ 06:09 by Cristian Rod MD) Sleep apnea Hyperlipidemia Hypertension Surgical History History of tubal ligation H/O: hysterectomy Family History Mother Colorectal cancer Grandfather (Maternal) Heart disease Social History Smoking Status: Never smoker Second Hand Exposure: No; Do You Dip or Chew Tobacco: No; Hx Alcohol Use: No Hx Substance Use: No Preferred Language: Syrian Communication Ability: Effective Lehr Operator Required: No Beliefs That Will Affect Care: None Current Living Situation: Spouse Feels Safe at Home: Yes Assistive Devices: Cane and Walker Review of Systems All systems reviewed & are unremarkable except as noted in HPI & below. Physical Exam . * General: Alert and oriented, no acute distress * Constitutional: well-developed, well-nourished. * Respiratory: Normal respiratory effort, no distress * Gastrointestinal: No tenderness to palpation, no rigidity or guarding. * Skin: No rash or lesion. * Neurologic: Grossly normal * Musculoskeletal: Left wrist with splint applied, not removed for exam. Per report no open wounds or overlying skin changes to the extremity prior to reduction. TTP through splint at the distal radius. Otherwise no specific tenderness of the upper arm, elbow, forearm, fingers. ROM wrist not assessed. AROM finger flexion/extension intact. Sensation intact radial/median/ulnar distributions. Brisk capillary refill. Results & Data Results & Data Laboratory Results . Diagnostic Findings . Shoulder X-Ray 03/06/25 18:41 Study: Left shoulder3 views History: Pain Comparison: None Findings: There is no acute fracture or dislocation. Alignment is anatomic. Joint spaces are well maintained. There is no joint effusion or significant soft tissue swelling. Bone mineralization is normal. Impression: No acute bony abnormality Electronically signed by Tad Roberson 03-06-2025 7:57 PM Wrist X-Ray 03/06/25 18:41 Study: Left wrist 5 views History: Fall Comparison: None Findings/impression: Transverse fracture through the distal radial metaphysis, with dorsal tilt of the distal portion. There is a fracture through the base of the ulnar styloid. Generalized soft tissue swelling about the wrist. Bone mineralization is decreased. Electronically signed by Tad Roberson 03-06-2025 7:57 PM Abdomen/Pelvis CT 03/06/25 18:42 CT ABDOMEN and PELVIS with INTRAVENOUS CONTRAST HISTORY: Abdominal pain following trauma TECHNIQUE: CT abdomen and pelvis with contrast. IV CONTRAST: 100 mL of OMNIPAQUE 300 ENTERIC CONTRAST: Not Given COMPARISON: CT abdomen pelvis 2019 FINDINGS: LIVER: Left hepatic lobe 1.7 cm hypodensity is probably a hemangioma GALLBLADDER/BILIARY: Unremarkable gallbladder. No abnormal biliary dilatation. SPLEEN: Unremarkable. PANCREAS: Unremarkable. ADRENALS: Unremarkable. KIDNEYS: Unremarkable. No stones or hydronephrosis identified. PERITONEUM/RETROPERITONEUM. No lymphadenopathy by size criteria. No aortic aneurysm. Moderate atherosclerosis GASTROINTESTINAL: No obstruction. REPRODUCTIVE: Status post hysterectomy. URINARY BLADDER: Unremarkable. BONES: No acute findings. IMPRESSION: No evidence of acute trauma to the abdomen or the pelvis. Electronically signed by Jah aGldamez 03-06-2025 8:[address] 03/06/25 18:42 CT CERVICAL SPINE WITHOUT CONTRAST: HISTORY: PAIN TECHNIQUE: Noncontrast CT examination of the cervical spine is performed. Coronal and sagittal reformats were created. COMPARISON: None. FINDINGS: CERVICAL SPINE: There is no significant vertebral body height loss. No acute traumatic fracture identified. There is no significant spondylolisthesis. Multilevel degenerative changes characterized by disc osteophyte complex, bilateral facet and uncovertebral hypertrophy resulting and neural foraminal narrowing at multiple levels, worst at mid to lower spine Visualized soft tissues of neck are unremarkable. Visualized lung apex is clear. IMPRESSION: No acute traumatic fracture of the cervical thoracic lumbar spine. Multilevel degenerative changes as above Electronically signed by Jah Galdamez 03-06-2025 7:[address] 03/06/25 18:42 CT CHEST WITH CONTRAST: HISTORY: TRAUMA TECHNIQUE: CT of the chest was obtained with intravenous contrast. Coronal and sagittal reformats were created. IV CONTRAST: 100 mL of OMNIPAQUE 300 COMPARISON: Thoracic CT January 15, 2020. FINDINGS: LOWER NECK: Normal thyroid. LYMPH NODES: A few small nonenlarged lymph nodes in the mediastinum. No lymphadenopathy by size criteria. CARDIOVASCULAR: Cardiac size is enlarged. Coronary artery and valvular calcifications are noted. No aortic aneurysm. LUNGS: The trachea and central bronchi are widely patent. No focal confluent infiltrates are seen. Multiple scattered subcentimeter groundglass density pulmonary nodules are identified again. Similar findings are as noted in the 2020 examination. PLEURA: There are no pleural effusions. There is no pneumothorax. UPPER ABDOMEN: No acute findings. OSSEOUS STRUCTURES: No acute findings IMPRESSION: No evidence of acute trauma to the thorax. Multiple scattered subcentimeter groundglass density pulmonary nodules are identified again. Similar findings are as noted in the 2020. This may be due to chronic small airways disease/bronchiolitis. Electronically signed by Jah Galdamez 03-06-2025 8:08 PM Chest X-Ray 03/06/25 18:42 Chest radiograph, one view History: Chest pain Comparison: None Findings: Single AP view of the chest performed. No focal consolidation or pleural effusion. No pneumothorax. Left chest wall dual-lead AICD. The cardiomediastinal silhouette is within normal limits. Normal pulmonary vascularity. No evidence for lymphadenopathy. No visualized bony or soft tissue abnormality. Impression: Normal chest radiograph Electronically signed by Tad Roberson 03-06-2025 7:[address] 03/06/25 18:42 CT HEAD: HISTORY: Trauma TECHNIQUE: Noncontrast CT examination of the head is performed. Coronal and sagittal reformats were created. COMPARISON: MRI of the brain January 25, 2025 FINDINGS: There is no evidence of intracranial hemorrhage, focal mass effect or midline shift. No fluid collection is identified. The ventricular system is midline and symmetric. No evidence of acute major vascular territory infarction. Age-related involutional changes of brain and chronic white matter ischemic changes. The ventricles are enlarged to a degree that is out of proportion to the surrounding cerebral volume loss. Redemonstrated calcified meningioma measuring 2.0 cm overlying the right parietal lobe. No calvarial fracture is identified. The paranasal sinuses and mastoids are well aerated. Right frontal scalp contusion. IMPRESSION: No acute intracranial process identified. 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 Coronal and sagittal reformats were created. COMPARISON: Lumbar spine radiograph August 25, 2019. FINDINGS: LUMBAR SPINE: Redemonstrated compression fracture of L2 vertebral body without significant change from 2020 x-ray examination, chronic. No significant retropulsion. No acute traumatic fracture identified. Unchanged mild grade 1 anterolisthesis of L4 and L5. Usual lumbar lordosis is preserved. Multilevel degenerative changes characterized by disc space loss, broad based disc bulge/herniations with endplate changes of the vertebral bodies with small marginal osteophytes as well as bilateral facet hypertrophy and thickening of the ligamentum flavum resulting in crowding of the subarticular recesses and narrowing of neural foramina worst at L4-S1. IMPRESSION: No acute traumatic fracture of the lumbar spine. Chronic compression fracture of L2 vertebral body without significant retropulsion. Multilevel degenerative changes as above Electronically signed by Jah Galdamez 03-06-2025 7:[address] 03/06/25 18:42 CT THORACIC SPINE WITHOUT CONTRAST: HISTORY: TRAUMA TECHNIQUE: Noncontrast CT examination of the thoracic spine is performed. Coronal and sagittal reformats were created. COMPARISON: FINDINGS: THORACIC SPINE: There is no significant vertebral body height loss. No acute traumatic fracture identified. There is no significant spondylolisthesis. Usual thoracic kyphosis is preserved. Multilevel degenerative changes characterized by disc space loss with endplate changes of the vertebral bodies with small marginal osteophytes. Visualized lungs are clear. IMPRESSION: No acute traumatic fracture of the thoracic spine. Multilevel degenerative changes as above Electronically signed by Jah Galdamez 03-06-2025 7:48 PM Wrist X-Ray 03/06/25 23:19 Exam(s): XR LEFT WRIST, 3+ views EXAM: XR Left Wrist Complete, 3 or More Views CLINICAL HISTORY: Reason for exam: post reduction/splint. TECHNIQUE: Frontal, lateral and oblique views of the left wrist. COMPARISON: No relevant prior studies available. FINDINGS: Bones/joints: Comminuted displaced intra-articular fracture of the distal radius. Minimally displaced ulnar styloid fracture. Overlying cast material somewhat obscures bony detail. No dislocation. Soft tissues: Unremarkable. No radiopaque foreign body. IMPRESSION: As above Electronically signed by: Kole Jeffries MD 03/07/25 00:10 AM PG Care Time/CCT Total # of Minutes Spent Total Time Spent with Patient: Total time spent is greater than 50% in coordination of care (as documented) at patient's floor/unit and/or counseling patient: [place] [address] IN/OBS CONSULT LVL 3,45M Patient Type New History Problem Focused Exam Problem Focused Medical Decision Making Moderate Complexity Diagnoses Fracture of left wrist S62.102A Encounter type: initial encounter Fracture type: closed (1) Fracture of left wrist Encounter type: initial encounter Fracture type: closed Qualified Code(s): S62.102A - Fracture of unspecified carpal bone, left wrist, initial encounter for closed fracture
[2025-03-07 10:47] LABS: Hematocrit (blood only) 34.2 % (37.0-47.0); Hemoglobin 11.2 g/dl (12.0-16.0); Mean Corpuscular Hemoglobin 31.1 pg (25.0-34.0); Mean Corpuscular Volume 95.0 fL (80.0-100.0); Platelet Count 192 K/uL (130-400); RDW Standard Deviation 49.6 fL (36.4-46.3); Red Blood Count 3.60 M/uL (4.20-5.40); White Blood Count 8.22 K/ul (4.8-10.8)
[2025-03-07 11:14] LABS: INR 4.7 (0.9-1.1); Prothrombin Time 44.6 Seconds (9.0-12.0)
--- NOTE | 2025-03-07 11:55 | Hospitalist Progress Note ---
Date of Service March 07, 2025 Assessment & Plan (1) Fall (on) (from) other stairs and steps, initial encounter: Plan: Presents with 2 falls on day of admission Ambulatory dysfunction Multiple falls Orthostatic hypotension improved with IV fluids Imaging studies so far negative except for left wrist fractures -Pacemaker interrogation requested -ECHO: Mild concentric LVH. EF 65 to 70%. Grade 1 diastolic dysfunction. Aortic valve leaflets are moderately calcified with mild restriction in leaflet mobility. Moderate focal calcification of the posterior mitral valve. Trace mitral regurgitation, tricuspid regurgitation. -CT head:Calcified meningioma posterior right parietal lobe is stable. There is stable severe patchy periventricular hypodensity, nonspecific, but usually represents chronic small vessel ischemic change. No intracranial hemorrhage seen. No mass effect, midline shift, or hydrocephalus. No skull fracture seen. Visualized paranasal sinuses and mastoid air cells are clear. -PT OT -Fall precautions -Monitor for any arrhythmias Will give gentle IV fluids to help with low blood pressure Strokelike symptoms In setting of dementia Unclear baseline mental status Initial CTs showed no acute process Obtain MRI brain if pacemaker is compatible Neurovascular checks (2) Left wrist fracture: Plan: Age-related osteoporosis with current pathologic fracture, L wrist Secondary to mechanical fall --Left Wrist X ray:Transverse fracture through the distal radial metaphysis, with dorsal tilt of the distal portion. There is a fracture through the base of the ulnar styloid. Generalized soft tissue swelling about the wrist. Bone mineralization is decreased. -- Nonweightbearing left upper extremity, no platform walker okay if needed per Ortho Continue splint Appreciate orthopedics input Needs follow-up with orthopedics on discharge with repeat x-rays in 2 weeks Chronic lumbar vertebral fracture Incidental finding on CT --Lumbar CT:No acute traumatic fracture of the lumbar spine. Chronic compression fracture of L2 vertebral body without significant retropulsion. Multilevel degenerative changes Denies any back pain Follow-up as outpatient Chronic meningioma --CT head:Calcified meningioma posterior right parietal lobe is stable. There is stable severe patchy periventricular hypodensity, nonspecific, but usually represents chronic small vessel ischemic change. No intracranial hemorrhage seen. No mass effect, midline shift, or hydrocephalus. No skull fracture seen. Visualized paranasal sinuses and mastoid air cells are clear. -- Follow-up as outpatient Pulmonary nodules Incidental finding on CT --Chest CT:Multiple scattered subcentimeter groundglass density pulmonary nodules are identified again. Similar findings are as noted in the 2020. This may be due to chronic small airways disease/bronchiolitis. Follow-up as outpatient Hypomagnesemia Replete and monitor HTN Blood pressure relatively low Hold lisinopril, HCTZ for now Monitor blood pressure (3) Status post placement of cardiac pacemaker: Plan: -see above (4) Pulmonary embolism, bilateral: Plan: Chronic pulmonary embolism Supratherapeutic INR Coumadin on hold Monitor INR: 4.7 today (5) Sleep apnea: Plan: Continue CPAP at bedtime (6) Hypothyroidism: Plan: -TSH normal -continue home levothyroxine (7) Dementia: Plan: -continue home citalopram -ativan 0.5mg HS chronically Plan DVT Px: Supratherapeutic INR CODE STATUS DNI DNR Disposition PT OT prior to discharge Admission and Anticipated Discharge Date Admission Date: March 06, 2025 Subjective Patient is seen and examined at bedside Admits to have some left wrist soreness but otherwise no specific complaints Seem to have some memory/word finding issues Denies any chest pain, dyspnea, nausea, vomiting, abdominal pain, back pain No other complaints today Review of Systems Review of Systems: All systems reviewed & are unremarkable except as noted in Subjective Physical Exam Physical Exam: Physical Exam: Vitals signs as noted above General Appearance:Moderately built and nourished, no apparent distress Head: normocephalic, traumatic, R forehead bruising Eyes: normal inspection, EOMI Neck: supple, Trachea midline Respiratory/Chest: Normal breath sounds, CTA, No accessory muscle use Cardiovascular: S1, S2, +murmur Abdomen/GI:Soft, Non tender, Bowel sounds present Extremities/Musculoskeletal:normal inspection, Trace edema, Left UE splint Neurologic/Psych:AAOX3, grossly moves all extremities, Poor memory-dementia Skin: normal color, warm Results & Data Results & Data Vital Signs (Past 12 Hours) Vital Signs Temp Pulse Pulse Resp BP Pulse Ox O2 Del Method 03/07/25 08:36 36.4 C L 59 L 17 103/64 95 Room Air 03/07/25 08:23 Room Air 03/07/25 08:23 60 03/07/25 03:50 36.4 C L 60 16 150/76 H 96 Room Air 03/07/25 00:18 36.4 C L 59 L 18 159/80 H 97 Room Air 03/07/25 00:13 61 Laboratory Results Short CBC 03/06/25 03/07/25 Range/Units 18:43 10:05 WBC 8.49 8.22 (4.8-10.8) K/ul Hgb 13.0 11.2 L (12.0-16.0) g/dl Hct 39.5 34.2 L (37.0-47.0) % Plt Count 234 192 (130-400) K/uL BMP 03/06/25 18:43 Sodium 139 Potassium 4.2 Chloride 107 Carbon Dioxide 24 BUN 21 Creatinine 1.23 H Glucose 137 H Calcium 9.0 Liver Function 03/06/25 Range/Units 18:43 Total Bilirubin 0.6 (0.2-1.0) mg/dl AST 34 (13-39) U/L ALT 29 (7-52) U/L Alkaline Phosphatase 89 (34-104) U/L Albumin 3.7 (3.4-5.0) gm/dl
[2025-03-07] MEDS: GADOBUTROL 65ML VIAL IV ONE (13:18)
--- NOTE | 2025-03-07 13:46 | Magnetic Resonance Report ---
MRI OF THE BRAIN COMBO CLINICAL HISTORY: Frequent falls. Meningioma. COMPARISON STUDY: MRI of the brain January 25, 2025. Head CT March 06, 2025. TECHNIQUE: MRI of the brain was performed utilizing various T1 and T2-weighted sequences in the axial , sagittal, and coronal planes. Contrast-enhanced sequences were acquired following the administratio n of 8 cc of Gadavist. Thin cut T1 post contrast imaging was performed. FINDINGS: There are no foci of restricted diffusion to suggest acute infarct. No acute intracranial h emorrhage, midline shift or mass effect is present. A 2 cm enhancing extra-axial lesion overlying the posterior medial right parietal lobe is unchanged since MRI of 01/25/2025. There are no additional in tracranial lesions. Ventricular system is stable. Basal cisterns are patent. There are no extra axial collections. Extensive white matter T2 hyperintense foci are unchanged. IMPRESSION: 1. No acute intracranial findings. 2. No change in appearance of the brain since MRI of January 25, 2025. Stable 2 cm meningioma overlying the posterior medial right parietal lobe. ACT 112: Negative or not required by law. Electronically signed by: Delvis Dorman M.D. 03/07/2025 1:43 PM
[2025-03-07] MEDS: MAGNESIUM SULFATE / D5W 1 GM/100 ML BAG IV ONE (13:50)
[2025-03-07] MEDS: SODIUM CHLORIDE 0.9% 1,000 ML IV ONE (13:54)
[2025-03-07] MEDS: LORazepam 0.5 MG TAB PO SCH (20:24)
[2025-03-07] MEDS: MAGNESIUM CHLORIDE W/CALCIUM 64MG DELAYED REL TAB PO SCH (20:25)
--- NOTE | 2025-03-08 05:39 | Electrocardiogram Report ---
Test Reason : Blood Pressure : */* mmHG Vent. Rate : 62 BPM Atrial Rate : 62 BPM P-R Int : 214 ms QRS Dur : 82 ms QT Int : 450 ms P-R-T Axes : -88 -7 -21 degrees QTcB Int : 456 ms Atrial-paced rhythm with prolonged AV conduction Low voltage QRS Septal infarct , age undetermined Inferior infarct (cited on or before 19-May-2023) Abnormal ECG When compared with ECG of 06-Mar-2025 10:01, No significant change was found Confirmed by Dandy Clements ([id number]) on 03/08/2025 5:39:02 AM Referred By: REFERRED SELF Confirmed By: Dandy Clements
[2025-03-08 07:10] LABS: Hematocrit (blood only) 32.7 % (37.0-47.0); Hemoglobin 10.7 g/dl (12.0-16.0); Mean Corpuscular Hemoglobin 31.1 pg (25.0-34.0); Mean Corpuscular Volume 95.1 fL (80.0-100.0); Platelet Count 164 K/uL (130-400); RDW Standard Deviation 49.5 fL (36.4-46.3); Red Blood Count 3.44 M/uL (4.20-5.40); White Blood Count 9.66 K/ul (4.8-10.8)
[2025-03-08 07:40] LABS: Anion Gap 6.0 (3-11); Blood Urea Nitrogen 21.0 mg/dl (6-23); Calcium 8.2 mg/dl (8.6-10.3); Carbon Dioxide 23.0 mmol/L (21-32); Chloride 110.0 mmol/L (98-107); Creatinine Clr Calc Pharmacy 50.1 ml/min; Glucose 90.0 mg/dl (70-99(Fasting)); Magnesium 1.7 mg/dl (1.7-2.4); Potassium 3.7 mmol/L (3.5-5.1); Sodium 139.0 mmol/L (136-145)
[2025-03-08] MEDS ORDERED: PHA DELIRIUM CONSULT PRN (07:43)
[2025-03-08 08:59] LABS: INR 3.6 (0.9-1.1); Prothrombin Time 34.9 Seconds (9.0-12.0)
--- NOTE | 2025-03-08 14:25 | Hospitalist Progress Note ---
Date of Service March 08, 2025 Assessment & Plan (1) Fall (on) (from) other stairs and steps, initial encounter: Plan: Presents with 2 falls on day of admission Ambulatory dysfunction Multiple falls Orthostatic hypotension improved with IV fluids Imaging studies so far negative except for left wrist fractures -Pacemaker interrogation requested -ECHO: Mild concentric LVH. EF 65 to 70%. Grade 1 diastolic dysfunction. Aortic valve leaflets are moderately calcified with mild restriction in leaflet mobility. Moderate focal calcification of the posterior mitral valve. Trace mitral regurgitation, tricuspid regurgitation. -CT head:Calcified meningioma posterior right parietal lobe is stable. There is stable severe patchy periventricular hypodensity, nonspecific, but usually represents chronic small vessel ischemic change. No intracranial hemorrhage seen. No mass effect, midline shift, or hydrocephalus. No skull fracture seen. Visualized paranasal sinuses and mastoid air cells are clear. -PT OT-recommended rehab -Fall precautions -Monitor for any arrhythmias Remains medically stable and denies any significant symptoms Awaiting placement Strokelike symptoms In setting of dementia Unclear baseline mental status Initial CTs showed no acute process Obtain MRI brain if pacemaker is compatible Neurovascular checks MRI has been negative for any stroke Dementia Pleasantly confused on asking multiple questions No acute delirium (2) Left wrist fracture: Plan: Age-related osteoporosis with current pathologic fracture, L wrist Secondary to mechanical fall --Left Wrist X ray:Transverse fracture through the distal radial metaphysis, with dorsal tilt of the distal portion. There is a fracture through the base of the ulnar styloid. Generalized soft tissue swelling about the wrist. Bone mineralization is decreased. -- Nonweightbearing left upper extremity, no platform walker okay if needed per Ortho Continue splint Appreciate orthopedics input Needs follow-up with orthopedics on discharge with repeat x-rays in 2 weeks Denies any significant pain at rest Chronic lumbar vertebral fracture Incidental finding on CT --Lumbar CT:No acute traumatic fracture of the lumbar spine. Chronic compression fracture of L2 vertebral body without significant retropulsion. Multilevel degenerative changes Denies any back pain Follow-up as outpatient Chronic meningioma --CT head:Calcified meningioma posterior right parietal lobe is stable. There is stable severe patchy periventricular hypodensity, nonspecific, but usually represents chronic small vessel ischemic change. No intracranial hemorrhage seen. No mass effect, midline shift, or hydrocephalus. No skull fracture seen. Visualized paranasal sinuses and mastoid air cells are clear. -- Follow-up as outpatient Pulmonary nodules Incidental finding on CT --Chest CT:Multiple scattered subcentimeter groundglass density pulmonary nodule s are identified again. Similar findings are as noted in the 2020. This may be due to chronic small airways disease/bronchiolitis. Follow-up as outpatient Hypomagnesemia Replete and monitor HTN Blood pressure relatively low Hold lisinopril, HCTZ for now Monitor blood pressure (3) Status post placement of cardiac pacemaker: Plan: -see above (4) Pulmonary embolism, bilateral: Plan: Chronic pulmonary embolism Supratherapeutic INR Coumadin on hold Monitor INR: 4.7 today (5) Sleep apnea: Plan: Continue CPAP at bedtime (6) Hypothyroidism: Plan: -TSH normal -continue home levothyroxine (7) Dementia: Plan: -continue home citalopram -ativan 0.5mg HS chronically Plan DVT Px: Supratherapeutic INR CODE STATUS DNI DNR Disposition PT OT prior to discharge Admission and Anticipated Discharge Date Admission Date: March 06, 2025 Subjective 03/08/2025 The patient was seen and examined in medical telemetry unit She has been stable without any acute symptoms or delirium Denies any significant symptoms on asking questions Review of Systems Review of Systems: All systems reviewed and are unremarkable except as noted below Physical Exam Physical Exam: Sitting on a chair without any acute distress Constitutional: well developed and well nourished; not ill appearing Eyes: PERRL, conjunctivae normal, anicteric sclerae ENMT: external ear and nose normal, oropharynx normal Neck: trachea midline, no thyromegaly Respiratory: no respiratory distress Auscultation: lungs clear to au scultation bilaterally Cardiovascular: Rate/Rhythm: regular rate and regular rhythm; not tachycardic Heart Sounds: normal S1 and normal S2; no murmur Extremities: + edema (Trace edema bilaterally) Gastrointestinal (Abdomen): Inspection/Auscultation: normal bowel sounds; abdomen not distended Percussion/Palpation: abdomen soft; abdomen nontender Musculoskeletal: No acute arthritis involving any of the joint Neurologic: normal touch/pain/proprioception and moves all extremities; no focal motor deficits Lymphatic: no cervical or axillary lymphadenopathy Results & Data Results & Data Vital Signs (Past 12 Hours) Vital Signs Temp Pulse Pulse Resp BP Pulse Ox O2 Del Method 03/08/25 11:15 36.7 C 60 18 97/45 L 97 Room Air 03/08/25 09:24 61 03/08/25 08:12 36.6 C 60 16 119/75 94 Room Air 03/08/25 02:41 36.5 C 62 18 130/70 96 Room Air Laboratory Results Short CBC 03/08/25 Range/Units 06:17 WBC 9.66 (4.8-10.8) K/ul Hgb 10.7 L (12.0-16.0) g/dl Hct 32.7 L (37.0-47.0) % Plt Count 164 (130-400) K/uL BMP 03/08/25 06:17 Sodium 139 Potassium 3.7 Chloride 110 H Carbon Dioxide 23 BUN 21 Creatinine 0.90 D Glucose 90 Calcium 8.2 L Medications Administered Current Inpatient Medications Acetaminophen (Acetaminophen 500 Mg Tab) 1,000 mg PO Q8 [facility] Stop: 04/06/25 05:59 Last Admin: 03/08/25 14:26 Dose: 1,000 mg Atorvastatin Calcium (Atorvastatin 40 Mg Tab) 40 mg PO DAILY [facility] Stop: 04/06/25 08:59 Last Admin: 03/08/25 07:36 Dose: 40 mg Citalopram Hydrobromide (Citalopram 20 Mg Tab) 20 mg PO DAILY [facility] Stop: 04/06/25 08:59 Last Admin: 03/08/25 07:36 Dose: 20 mg Levothyroxine Sodium (Levothyroxine Sodium 75 Mcg Tablet) 75 mcg PO DAILYBB [facility] Stop: 04/06/25 06:29 Last Admin: 03/08/25 06:15 Dose: 75 mcg Magnesium Chloride (Magnesium Chloride W/Calcium 64mg Delayed Rel Tab) 64 mg PO BID [facility] Stop: 04/06/25 20:59 Last Admin: 03/08/25 07:36 Dose: 64 mg Ondansetron HCl (Ondansetron Inj 2 Mg/Ml 2 Ml Vial) 4 mg IV Q6H PRN PRN Reason: Nausea Stop: 04/06/25 00:23 Oxycodone HCl (Oxycodone Hcl Ir 5 Mg Tab (Immediate Release)) 5 mg PO Q4 PRN PRN Reason: Severe Pain (Scale 7, 8, 9,10) Stop: 03/21/25 00:23 Last Admin: 03/07/25 20:24 Dose: 5 mg Polyethylene Glycol (Polyethylene (Miralax) 17 Gm Pack) 17 gm PO DAILY PRN PRN Reason: Constipation Stop: 04/06/25 00:23
[2025-03-08 14:32] LABS: Hemoglobin A1C 5.7 % (4.5-5.6)
[2025-03-09 06:51] LABS: INR 2.3 (0.9-1.1); Prothrombin Time 23.0 Seconds (9.0-12.0)
[2025-03-09 07:17] LABS: Anion Gap 5.0 (3-11); Blood Urea Nitrogen 25.0 mg/dl (6-23); Calcium 8.5 mg/dl (8.6-10.3); Carbon Dioxide 24.0 mmol/L (21-32); Chloride 112.0 mmol/L (98-107); Creatinine Clr Calc Pharmacy 42.6 ml/min; Glucose 85.0 mg/dl (70-99(Fasting)); Magnesium 1.7 mg/dl (1.7-2.4); Potassium 4.1 mmol/L (3.5-5.1); Sodium 141.0 mmol/L (136-145)
[2025-03-09 07:27] LABS: Hematocrit (blood only) 34.3 % (37.0-47.0); Hemoglobin 11.2 g/dl (12.0-16.0); Mean Corpuscular Hemoglobin 32.1 pg (25.0-34.0); Mean Corpuscular Volume 98.3 fL (80.0-100.0); Platelet Count 136 K/uL (130-400); RDW Standard Deviation 52.2 fL (36.4-46.3); Red Blood Count 3.49 M/uL (4.20-5.40); White Blood Count 7.77 K/ul (4.8-10.8)
--- NOTE | 2025-03-09 15:14 | Hospitalist Progress Note ---
Date of Service March 09, 2025 Assessment & Plan (1) Fall (on) (from) other stairs and steps, initial encounter: Plan: Presents with 2 falls on day of admission Ambulatory dysfunction Multiple falls Orthostatic hypotension improved with IV fluids Imaging studies so far negative except for left wrist fractures -Pacemaker interrogation requested -ECHO: Mild concentric LVH. EF 65 to 70%. Grade 1 diastolic dysfunction. Aortic valve leaflets are moderately calcified with mild restriction in leaflet mobility. Moderate focal calcification of the posterior mitral valve. Trace mitral regurgitation, tricuspid regurgitation. -CT head:Calcified meningioma posterior right parietal lobe is stable. There is stable severe patchy periventricular hypodensity, nonspecific, but usually represents chronic small vessel ischemic change. No intracranial hemorrhage seen. No mass effect, midline shift, or hydrocephalus. No skull fracture seen. Visualized paranasal sinuses and mastoid air cells are clear. -PT OT-recommended rehab -Fall precautions -Monitor for any arrhythmias Remains stable in bed without any acute distress and/or symptoms She has been accepted to [facility] likely be discharged tomorrow Strokelike symptoms In setting of dementia Unclear baseline mental status Initial CTs showed no acute process Obtain MRI brain if pacemaker is compatible Neurovascular checks MRI has been negative for any stroke No neurological symptoms Dementia Pleasantly confused on asking multiple questions No acute delirium (2) Left wrist fracture: Plan: Age-related osteoporosis with current pathologic fracture, L wrist Secondary to mechanical fall --Left Wrist X ray:Transverse fracture through the distal radial metaphysis, wit h dorsal tilt of the distal portion. There is a fracture through the base of the ulnar styloid. Generalized soft tissue swelling about the wrist. Bone mineralization is decreased. -- Nonweightbearing left upper extremity, no platform walker okay if needed per Ortho Continue splint Appreciate orthopedics input Needs follow-up with orthopedics on discharge with repeat x-rays in 2 weeks Denies any significant pain at rest Remains stable without any symptoms Chronic lumbar vertebral fracture Incidental finding on CT --Lumbar CT:No acute traumatic fracture of the lumbar spine. Chronic compression fracture of L2 vertebral body without significant retropulsion. Multilevel degenerative changes Denies any back pain Follow-up as outpatient Chronic meningioma --CT head:Calcified meningioma posterior right parietal lobe is stable. There is stable severe patchy periventricular hypodensity, nonspecific, but usually represents chronic small vessel ischemic change. No intracranial hemorrhage seen. No mass effect, midline shift, or hydrocephalus. No skull fracture seen. Visualized paranasal sinuses and mastoid air cells are clear. -- Follow-up as outpatient Pulmonary nodules Incidental finding on CT --Chest CT:Multiple scattered subcentimeter groundglass density pulmonary nodules are identified again. Similar findings are as noted in the 2020. This may be due to chronic small airways disease/bronchiolitis. Follow-up as outpatient Hypomagnesemia Replete and monitor HTN Blood pressure relatively low Hold lisinopril, HCTZ for now Monitor blood pressure Likely discharge tomorrow (3) Status post placement of cardiac pacemaker: Plan: -see above (4) Pulmonary embolism, bilateral: Plan: Chronic pulmonary embolism Supratherapeutic INR Coumadin on hold Monitor INR: 4.7 today (5) Sleep apnea: Plan: Continue CPAP at bedtime (6) Hypothyroidism: Plan: -TSH normal -continue home levothyroxine (7) Dementia: Plan: -continue home citalopram -ativan 0.5mg HS chronically Plan DVT Px: Supratherapeutic INR CODE STATUS DNI DNR Disposition PT OT prior to discharge Admission and Anticipated Discharge Date Admission Date: March 06, 2025 Subjective 03/08/2025 The patient was seen and examined in medical telemetry unit She has been stable without any acute symptoms or delirium Denies any significant symptoms on asking questions 03/09/2025 The patient was seen and examined in medical telemetry unit She is stable and denies any significant symptoms No acute confusion/delirium and the pain in the wrist is controlled Review of Systems Review of Systems: All systems reviewed and are unremarkable except as noted below Physical Exam Physical Exam: Sitting on a chair without any acute distress Constitutional: well developed and well nourished; not ill appearing Eyes: PERRL, conjunctivae normal, anicteric sclerae ENMT: external ear and nose normal, oropharynx normal Neck: trachea midline, no thyromegaly Respiratory: no respiratory distress Auscultation: lungs clear to auscultation bilaterally Cardiovascular: Rate/Rhythm: regular rate and regular rhythm; not tachycardic Heart Sounds: normal S1 and normal S2; no murmur Extremities: + edema (Trace edema bilaterally) Gastrointestinal (Abdomen): Inspection/Auscultation: normal bowel sounds; abdomen not distended Percussion/Palpation: abdomen soft; abdomen nontender Neurologic: normal touch/pain/proprioception and moves all extremities; no focal motor deficits Lymphatic: no cervical or axillary lymphadenopathy Results & Data Results & Data Vital Signs (Past 12 Hours) Vital Signs Temp Pulse Pulse Resp BP Pulse Ox O2 Del Method 03/09/25 13:00 60 03/09/25 11:14 36.3 C L 60 20 126/68 98 Room Air 03/09/25 09:18 Room Air 03/09/25 07:41 36.6 C 55 L 18 147/98 H 95 Room Air 03/09/25 05:42 60 03/09/25 04:17 36.4 C L 60 12 152/72 H 99 Room Air Laboratory Results Short CBC 03/09/25 03/09/25 Range/Units 05:59 06:47 WBC Cancelled 7.77 Hgb Cancelled 11.2 L Hct Cancelled 34.3 L Plt Count Cancelled 136 BMP 03/09/25 05:59 Sodium 141 Potassium 4.1 Chloride 112 H Carbon Dioxide 24 BUN 25 H Creatinine 1.06 Glucose 85 Calcium 8.5 L Medications Administered Current Inpatient Medications Acetaminophen (Acetaminophen 500 Mg Tab) 1,000 mg PO Q8 [facility] Stop: 04/06/25 05:59 Last Admin: 03/09/25 14:45 Dose: Not Given Atorvastatin Calcium (Atorvastatin 40 Mg Tab) 40 mg PO DAILY [facility]AIL[facility] Stop: 04/06/25 08:59 Last Admin: 03/09/25 07:55 Dose: 40 mg Citalopram Hydrobromide (Citalopram 20 Mg Tab) 20 mg PO DAILY [facility]AIL[facility] Stop: 04/06/25 08:59 Last Admin: 03/09/25 07:55 Dose: 20 mg Levothyroxine Sodium (Levothyroxine Sodium 75 Mcg Tablet) 75 mcg PO DAILYBB [facility] Stop: 04/06/25 06:29 Last Admin: 03/09/25 05:59 Dose: 75 mcg Magnesium Chloride (Magnesium Chloride W/Calcium 64mg Delayed Rel Tab) 64 mg PO BID [facility]AIL[facility] Stop: 04/06/25 20:59 Last Admin: 03/09/25 07:55 Dose: 64 mg Ondansetron HCl (Ondansetron Inj 2 Mg/Ml 2 Ml Vial) 4 mg IV Q6H PRN PRN Reason: Nausea Stop: 04/06/25 00:23 Oxycodone HCl (Oxycodone Hcl Ir 5 Mg Tab (Immediate Release)) 5 mg PO Q4 PRN PRN Reason: Severe Pain (Scale 7, 8, 9,10) Stop: 03/21/25 00:23 Last Admin: 03/07/25 20:24 Dose: 5 mg Polyethylene Glycol (Polyethylene (Miralax) 17 Gm Pack) 17 gm PO DAILY PRN PRN Reason: Constipation Stop: 04/06/25 00:23
[2025-03-10 07:33] LABS: Anion Gap 8.0 (3-11); Blood Urea Nitrogen 29.0 mg/dl (6-23); Calcium 8.6 mg/dl (8.6-10.3); Carbon Dioxide 22.0 mmol/L (21-32); Chloride 109.0 mmol/L (98-107); Creatinine Clr Calc Pharmacy 42.9 ml/min; Glucose 84.0 mg/dl (70-99(Fasting)); Potassium 3.7 mmol/L (3.5-5.1); Sodium 139.0 mmol/L (136-145)
[2025-03-10 07:34] LABS: INR 1.4 (0.9-1.1); Prothrombin Time 15.1 Seconds (9.0-12.0)
--- NOTE | 2025-03-10 11:23 | Hospitalist Progress Note ---
Date of Service March 10, 2025 Assessment & Plan (1) Fall (on) (from) other stairs and steps, initial encounter: Plan: Presents with 2 falls on day of admission Ambulatory dysfunction Multiple falls Orthostatic hypotension improved with IV fluids Imaging studies so far negative except for left wrist fractures -Pacemaker interrogation requested -ECHO: Mild concentric LVH. EF 65 to 70%. Grade 1 diastolic dysfunction. Aortic valve leaflets are moderately calcified with mild restriction in leaflet mobility. Moderate focal calcification of the posterior mitral valve. Trace mitral regurgitation, tricuspid regurgitation. -CT head:Calcified meningioma posterior right parietal lobe is stable. There is stable severe patchy periventricular hypodensity, nonspecific, but usually represents chronic small vessel ischemic change. No intracranial hemorrhage seen. No mass effect, midline shift, or hydrocephalus. No skull fracture seen. Visualized paranasal sinuses and mastoid air cells are clear. -PT OT-recommended rehab -Fall precautions -Monitor for any arrhythmias Remains stable in bed without any acute distress and/or symptoms She has been accepted to [facility] likely be discharged tomorrow Remains medically stable and she will be discharged to [facility] to continue rehab Strokelike symptoms In setting of dementia Unclear baseline mental status Initial CTs showed no acute process Obtain MRI brain if pacemaker is compatible Neurovascular checks MRI has been negative for any stroke No neurological symptoms Dementia Pleasantly confused on asking multiple questions No acute delirium (2) Left wrist fracture: Plan: Age-related osteoporosis with current pathologic fracture, L wrist Secondary to mechanical fall --Left Wrist X ray:Transverse fracture through the distal radial metaphysis, with dorsal tilt of the distal portion. There is a fracture through the base of the ulnar styloid. Generalized soft tissue swelling about the wrist. Bone mineralization is decreased. -- Nonweightbearing left upper extremity, no platform walker okay if needed per Ortho Continue splint Appreciate orthopedics input Needs follow-up with orthopedics on discharge with repeat x-rays in 2 weeks Denies any significant pain at rest Remains stable without any symptoms Denies any pain at rest and has been moving the fingers without difficulties Will need outpatient orthopedic appointment hospitalist in about 2 weeks regarding yes yes ma'am Chronic lumbar vertebral fracture Incidental finding on CT --Lumbar CT:No acute traumatic fracture of the lumbar spine. Chronic compression fracture of L2 vertebral body without significant retropulsion. Multilevel degenerative changes Denies any back pain Follow-up as outpatient Denies any back pain at rest or any radiculopathy Chronic meningioma --CT head:Calcified meningioma posterior right parietal lobe is stable. There is stable severe patchy periventricular hypodensity, nonspecific, but usually represents chronic small vessel ischemic change. No intracranial hemorrhage seen. No mass effect, midline shift, or hydrocephalus. No skull fracture seen. Visualized paranasal sinuses and mastoid air cells are clear. -- Follow-up as outpatient Pulmonary nodules Incidental finding on CT --Chest CT:Multiple scattered subcentimeter groundglass density pulmonary nodules are identified again. Similar findings are as noted in the 2020. This may be due to chronic small airways disease/bronchiolitis. Follow-up as outpatient Hypomagnesemia Replete and monitor HTN Blood pressure relatively low Hold lisinopril, HCTZ for now Monitor blood pressure Likely discharge tomorrow She will be discharged to [facility] this afternoon (3) Status post placement of cardiac pacemaker: Plan: -see above (4) Pulmonary embolism, bilateral: Plan: Chronic pulmonary embolism Supratherapeutic INR Coumadin on hold Monitor INR: 4.7 today (5) Sleep apnea: Plan: Continue CPAP at bedtime (6) Hypothyroidism: Plan: -TSH normal -continue home levothyroxine (7) Dementia: Plan: -continue home citalopram -ativan 0.5mg HS chronically Plan DVT Px: Supratherapeutic INR CODE STATUS DNI DNR Disposition PT OT prior to discharge Admission and Anticipated Discharge Date Admission Date: March 06, 2025 Subjective 03/08/2025 The patient was seen and examined in medical telemetry unit She has been stable without any acute symptoms or delirium Denies any significant symptoms on asking questions 03/09/2025 The patient was seen and examined in medical telemetry unit She is stable and denies any significant symptoms No acute confusion/delirium and the pain in the wrist is controlled 03/10/2025 Patient was seen and examined in medical telemetry unit She has been stable and does not have any pain at rest Delirium Denies any significant symptoms of Review of Systems Review of Systems: All systems reviewed and are unremarkable except as noted below Physical Exam Physical Exam: Sitting on a chair without any acute distress Constitutional: well developed and well nourished; not ill appearing Eyes: PERRL, conjunctivae normal, anicteric sclerae ENMT: external ear and nose normal, oropharynx normal Neck: trachea midline, no thyromegaly Respiratory: no respiratory distress Auscultation: lungs clear to auscultation bilaterally Cardiovascular: Rate/Rhythm: regular rate and regular rhythm; not tachycardic Heart Sounds: normal S1 and normal S2; no murmur Extremities: + edema (Trace edema bilaterally) Gastrointestinal (Abdomen): Inspection/Auscultation: normal bowel sounds; abdomen not distended Percussion/Palpation: abdomen soft; abdomen nontender Musculoskeletal: Left arm is in manage rest and has a sling. She has been moving the fingers without any difficulties Neurologic: normal touch/pain/proprioception and moves all extremities; no focal motor deficits Lymphatic: no cervical or axillary lymphadenopathy Results & Data Results & Data Vital Signs (Past 12 Hours) Vital Signs Temp Pulse Pulse Resp BP Pulse Ox O2 Del Method 03/10/25 09:59 Room Air 03/10/25 08:58 36.4 C L 61 18 185/82 H 98 Room Air 03/10/25 05:47 60 03/10/25 03:45 36.7 C 55 L 20 135/77 93 Room Air Laboratory Results [facility] 03/10/25 06:39 Sodium 139 Potassium 3.7 Chloride 109 H Carbon Dioxide 22 BUN 29 H Creatinine 0.99 Glucose 84 Calcium 8.6 Medications Administered Current Inpatient Medications Acetaminophen (Acetaminophen 500 Mg Tab) 1,000 mg PO Q8 [facility] Stop: 04/06/25 05:59 Last Admin: 03/10/25 06:17 Dose: 1,000 mg Atorvastatin Calcium (Atorvastatin 40 Mg Tab) 40 mg PO DAILY JAIL[facility] Stop: 04/06/25 08:59 Last Admin: 03/10/25 07:52 Dose: 40 mg Citalopram Hydrobromide (Citalopram 20 Mg Tab) 20 mg PO DAILY JAIL[facility] Stop: 04/06/25 08:59 Last Admin: 03/10/25 07:52 Dose: 20 mg Levothyroxine Sodium (Levothyroxine Sodium 75 Mcg Tablet) 75 mcg PO DAILYBB [facility] Stop: 04/06/25 06:29 Last Admin: 03/10/25 06:17 Dose: 75 mcg Magnesium Chloride (Magnesium Chloride W/Calcium 64mg Delayed Rel Tab) 64 mg PO BID [facility]AIL[facility] Stop: 04/06/25 20:59 Last Admin: 03/10/25 07:52 Dose: 64 mg Ondansetron HCl (Ondansetron Inj 2 Mg/Ml 2 Ml Vial) 4 mg IV Q6H PRN PRN Reason: Nausea Stop: 04/06/25 00:23 Oxycodone HCl (Oxycodone Hcl Ir 5 Mg Tab (Immediate Release)) 5 mg PO Q4 PRN PRN Reason: Severe Pain (Scale 7, 8, 9,10) Stop: 03/21/25 00:23 Last Admin: 03/07/25 20:24 Dose: 5 mg Polyethylene Glycol (Polyethylene (Miralax) 17 Gm Pack) 17 gm PO DAILY PRN PRN Reason: Constipation Stop: 04/06/25 00:23
[2025-03-10 11:49] VITALS: BP 144/73; PULSE 62; RESP 17; TEMP 97.3; O2SAT 97
--- NOTE | 2025-03-10 17:00 | Discharge Summary ---
Date of Service March 10, 2025 Admission HPI Per Admitting Provider 84 yo female with pmhx of hypertension, hyperlipidemia, PE on Coumadin, CON on CPAP, hypothyroidism, anxiety/mood disorder, tremors who presents for recurrent falls at home. Last admission in 2022 for bilateral PEs. In the ED, was seen earlier today for falls, sent home and came back after bigger fall, INR supertherapeutic, imaging workup revealing left radius/ulnar fracture and touched base with ortho, creatinine above baseline, splinted in ED, admitted to medicine for further workup. Patient seen and examined at bedside. Patient doing ok today, states her legs gave out on her going up stairs, lives with her family. Did not get lightheaded or have prodromal symptoms. Does feel she has been getting weaker over the past few months. Has pacemaker, did not have palpitations or chest pain at home. Does have some brusing on arms and legs but better than she has had in past. No alcohol use, no tobacco use, no drug use, DNRDNI discussed with patient and family. Admission Exam Per Admitting Provider Physical Exam: Gen: A&O 3 NAD HEENT: NCAT, EOMI, not icteric. External ears normal. No rhinorrhea. Moist mucous membranes. Neck: Supple, full range of motion, no observable masses, No meningeal sign. Lungs: No Respiratory distress. CV: RRR, no edema. Abdomen: Soft, nondistended, No rebound tenderness. MSK: left hand in traction prior to splinting, bruising on forehead, left wrist, scattered ecchymoses noted Skin: see above Neuro: Normal Gait, Grossly intact. Psych: Appropriate for situation. Principal Diagnosis Status post fall with left wrist fracture, dementia, chronic meningioma, hypertension, history of bilateral pulmonary embolism on Coumadin Discharge Exam Sitting on a chair without any acute distress Constitutional well developed and well nourished; not ill appearing Eyes PERRL, conjunctivae normal, anicteric sclerae ENMT external ear and nose normal, oropharynx normal Neck trachea midline, no thyromegaly Respiratory no respiratory distress Auscultation: lungs clear to auscultation bilaterally Cardiovascular Rate/Rhythm: regular rate and regular rhythm; not tachycardic Heart Sounds: normal S1 and normal S2; no murmur Extremities: + edema (Trace edema bilaterally) Gastrointestinal (Abdomen) Inspection/Auscultation: normal bowel sounds; abdomen not distended Percussion/Palpation: abdomen soft; abdomen nontender Neurologic normal touch/pain/proprioception and moves all extremities; no focal motor deficits Lymphatic no cervical or axillary lymphadenopathy Discharge Data Allergies Allergy/AdvReac Type Severity Reaction Status Date / Time Influenza Virus Vaccines Allergy COULD NOT Verified 05/17/23 00:47 MOVE, FELT TERRIBLE simvastatin [From Zocor] AdvReac Muscle Pain Verified 05/16/23 23:51 Consultations 03/06/25 21:52 ED Decision to Admit Stat 03/06/25 22:04 Consult Orthopedic Surgery Routine Ordered Studies 03/06/25 18:42 CT abd pelvis IV con only Stat CT cervical spine wo con Stat CT chest diagnostic w con Stat CT head/brain wo con Stat CT lumbar spine w con Stat CT thoracic spine w con Stat 03/07/25 11:25 MRI Brain [MR brain wo/w con] Urgent Hospital Course (1) Fall (on) (from) other stairs and steps, initial encounter: Presents with 2 falls on day of admission Ambulatory dysfunction Multiple falls Orthostatic hypotension improved with IV fluids Imaging studies so far negative except for left wrist fractures -Pacemaker interrogation requested -ECHO: Mild concentric LVH. EF 65 to 70%. Grade 1 diastolic dysfunction. Aortic valve leaflets are moderately calcified with mild restriction in leaflet mobility. Moderate focal calcification of the posterior mitral valve. Trace mitral regurgitation, tricuspid regurgitation. -CT head:Calcified meningioma posterior right parietal lobe is stable. There is stable severe patchy periventricular hypodensity, nonspecific, but usually represents chronic small vessel ischemic change. No intracranial hemorrhage seen. No mass effect, midline shift, or hydrocephalus. No skull fracture seen. Visualized paranasal sinuses and mastoid air cells are clear. -PT OT-recommended rehab -Fall precautions -Monitor for any arrhythmias Remains stable in bed without any acute distress and/or symptoms She has been accepted to [facility] likely be discharged tomorrow Remains medically stable and she will be discharged to [facility] to continue rehab Strokelike symptoms In setting of dementia Unclear baseline mental status Initial CTs showed no acute process Obtain MRI brain if pacemaker is compatible Neurovascular checks MRI has been negative for any stroke No neurological symptoms Dementia Pleasantly confused on asking multiple questions No acute delirium (2) Left wrist fracture: Age-related osteoporosis with current pathologic fracture, L wrist Secondary to mechanical fall --Left Wrist X ray:Transverse fracture through the distal radial metaphysis, with dorsal tilt of the distal portion. There is a fracture through the base of the ulnar styloid. Generalized soft tissue swelling about the wrist. Bone mineralization is decreased. -- Nonweightbearing left upper extremity, no platform walker okay if needed per Ortho Continue splint Appreciate orthopedics input Needs follow-up with orthopedics on discharge with repeat x-rays in 2 weeks Denies any significant pain at rest Remains stable without any symptoms Denies any pain at rest and has been moving the fingers without difficulties Will need outpatient orthopedic appointment hospitalist in about 2 weeks regarding yes yes ma'am Chronic lumbar vertebral fracture Incidental finding on CT --Lumbar CT:No acute traumatic fracture of the lumbar spine. Chronic compression fracture of L2 vertebral body without significant retropulsion. Multilevel degenerative changes Denies any back pain Follow-up as outpatient Denies any back pain at rest or any radiculopathy Chronic meningioma --CT head:Calcified meningioma posterior right parietal lobe is stable. There is stable severe patchy periventricular hypodensity, nonspecific, but usually represents chronic small vessel ischemic change. No intracranial hemorrhage seen. No mass effect, midline shift, or hydrocephalus. No skull fracture seen. Visualized paranasal sinuses and mastoid air cells are clear. -- Follow-up as outpatient Pulmonary nodules Incidental finding on CT --Chest CT:Multiple scattered subcentimeter groundglass density pulmonary nodules are identified again. Similar findings are as noted in the 2020. This may be due to chronic small airways disease/bronchiolitis. Follow-up as outpatient Hypomagnesemia Replete and monitor HTN Blood pressure relatively low Hold lisinopril, HCTZ for now Monitor blood pressure Likely discharge tomorrow She will be discharged to [facility] this afternoon (3) Status post placement of cardiac pacemaker: -see above (4) Pulmonary embolism, bilateral: Chronic pulmonary embolism Supratherapeutic INR Coumadin on hold Monitor INR: 4.7 today (5) Sleep apnea: Continue CPAP at bedtime (6) Hypothyroidism: -TSH normal -continue home levothyroxine (7) Dementia: -continue home citalopram -ativan 0.5mg HS chronically Plan DVT Px: Supratherapeutic INR CODE STATUS DNI DNR Disposition PT OT prior to discharge Total Time Total Time Spent Total Time Spent (In Minutes): 40 minutes Discharge Plan Discharge Items Patient Disposition: Transfer Inpatient Rehab Fac Reason For Visit: TRAUMA Discharge Diagnosis: Status post fall with left wrist fracture, dementia, chronic meningioma, hypertension, history of bilateral pulmonary embolism on Coumadin Condition on Discharge: Fair Activity: Resume your previous activity Non-emergency contact: Primary Care Provider Call non-emergency contact if: you have any medication questions and your symptoms worsen Follow-up/Referrals: Jamaal Price MD [Physician] - Мария Littlejohn DO [Primary Care Provider] - Diet: Regular Addtl Attending Provider Instructions: Please take precautions to avoid falls Take your medications as advised- no change of your medications Please keep follow-up appointments with a healthcare provider Please make an appointment with your PCP within 7 days following discharge from the facility Addtl Server Assistant Provider Instructions: Left wrist fracture * Maintain splint at all times * To avoid weightbearing through the left hand/wrist * May use platform walker if needed * Office follow-up approximately 2 weeks for repeat x-ray, please contact office for appointment Pending Studies at Discharge: No Stand-Alone Forms: My [facility] Skilled Items Patient informed of condition?: Yes DNR: Yes Discharge Level of Care: Acute rehab Communicable Disease: No Discharge Prognosis: Stable Lines: None Urinary Catheter: No Medications and DC Order Prescriptions: Continued warfarin 3 mg tablet 3 mg PO .6DAYS A WEEK Rx Instructions: Takes all days except Mon takes 10 mg atorvastatin 40 mg Tablet 40 mg PO DAILY levothyroxine 75 mcg Tablet 75 mcg PO DAILY hydrochlorothiazide 25 mg Tablet 25 mg PO DAILY potassium chloride 20 mEq Tablet Extended Release 20 meq PO BID warfarin [Jantoven] 3 mg tablet 6 mg PO .QMON citalopram 20 mg tablet 20 mg PO DAILY cholecalciferol (vitamin D3) [Vitamin D3] 50 mcg (2,000 unit) Tablet 50 mcg PO DAILY acetaminophen [Tylenol] 325 mg Tablet 650 mg PO PC PRN (Reason: Pain) hydrocortisone acetate [Anusol-HC] 25 mg Suppository 25 mg [place] HS PRN (Reason: ..) PreserVision AREDS-2 250-90-40-1 mg Capsule 1 tab PO AMHS lisinopril 2.5 mg Tablet 2.5 mg PO QAM Qty: 30 0RF Discharge Orders: Discharge Order (Routine); Ordered 03/10/25 Ordered By: Bijal Mathews/Other Patient Handouts: Treating Wrist Fractures, Slips Trips Falls Prevention, ED Fracture, Upper Extremity Admission Data Admit Date/Time: 03/06/25 22:04 Attending Provider: Bijal Farris Admit Provider: Thierry Nicole Primary Care Provider: Мария Littlejohn Other Providers: Thierry Nicole; Jamaal Price; Da Terrell; [facility] Other Interventions: Discharge Summary Assessment (RN) Last Done: 03/10/25 11:41
== END 2025-03-10 14:55 | DRG 543 ==
LOC: ED 18:21 → 2W 22:04 → SUATTDRO 22:04 → 2W 23:56